=== PATIENT | female | born 1955 | race African-American/Black ===

== ENCOUNTER 2018-11-19 18:37 | Inpatient (IN) ==
[2018-11-19] MEDS ORDERED: G.I. COCKTAIL PO ONE (19:50)
[2018-11-19 20:46] LABS: BASO# 0.04 X1000 (0.0-0.2); BASO% 0.2 % (0.0-0.8); EOS# 0.08 X1000 (0.0-0.7); EOS% 0.4 % (0.0-10.0); HEMOGLOBIN 12.9 g/dL (12.0-16.0); IMM GRAN# 0.09 X1000 (0.0-0.04); IMM GRAN% 0.5 % (0.0-0.5); LYMPH% 16.1 % (20.5-51.1); MCH 30.1 PG (27-31); MCHC 33.9 g/dL (33-37); MCV 88.6 FL (81-99); MONO# 1.86 X1000 (0.11-0.59); MPV 11.4 FL (7.4-10.4); NEUT# 13.62 X1000 (1.4-6.5); NEUT% 72.8 % (42.2-75.2); PLT 238 X1000 (130-400); RBC 4.29 XMIL (4.2-5.4); RDW 15.3 % (11.5-14.5); WBC 18.69 X1000 (4.8-10.8)
[2018-11-19 21:12] LABS: ALBUMIN 4.1 g/dL (3.5-5.0); CALCIUM 9.3 mg/dL (8.8-10.2); CREATININE 2.1 mg/dL (0.5-0.9); POTASSIUM 5.2 mmol/L (3.5-5.1); TOTAL BILIRUBIN 0.44 mg/dL (0.20-1.00); TOTAL PROTEIN 8.4 g/dL (6.3-8.3)
[2018-11-20 01:20] LABS: URINE SOURCE CATH
[2018-11-20] MEDS ORDERED: ZOFRAN IV ONE (01:23)
[2018-11-20] MEDS ORDERED: DILAUDID IV ONE (01:23)
[2018-11-20 01:24] LABS: BILIRUBIN URINE NEGATIVE (NEGATIVE); BLOOD URINE NEGATIVE (NEGATIVE); COLOR YELLOW; GLUCOSE URINE NEGATIVE (NEGATIVE); KETONE URINE NEGATIVE (NEGATIVE); LEUKOCYTES URINE TRACE (NEGATIVE); NITRITE URINE NEGATIVE (NEGATIVE); PROTEIN URINE TRACE mg/dL (NEGATIVE); SP GRAVITY URINE 1.015; TURBIDITY URINE CLEAR (CLEAR); UROBILINOGEN URINE NORMAL (NORMAL)
[2018-11-20 01:33] LABS: UR EPITHELIAL CELLS <10 /HPF (<10); URINE BACTERIA NEGATIVE /HPF; URINE RBC <10 /HPF (<10); URINE WBC <10 /HPF (<10)
[2018-11-20 01:34] LABS: URINE CASTS NONE SEEN; URINE CRYSTALS NONE SEEN; URINE YEAST NONE SEEN
--- NOTE | 2018-11-20 01:44 | PROVIDER DOCUMENTATION ---
This chart was entered by Anahy Lopez Scribe, acting as scribe for Ant Antonio MD. HPI-Abdominal Pain/GI Problem - General Chief Complaint: Abdominal Pain Stated Complaint: ABD PAIN Time Seen by Provider: 11/19/18 19:43 Source: patient Allergies/Adverse Reactions: Patient Allergies Allergy/AdvReac Type Severity Reaction Status Date / Time acetaminophen [From Percocet] Allergy HIVES Verified 11/19/18 20:20 oxycodone [From Percocet] Allergy HIVES Verified 11/19/18 20:20 Home Medications: Home Medication List Medication Instructions Recorded Confirmed Last Taken Type Digoxin [Lanoxin] 250 microgm PO DAILY #30 tablet 08/14/15 11/20/18 Unknown Rx Lisinopril/Hydrochlorothiazide 1 each PO DAILY #30 tablet 08/14/15 11/20/18 Unknown Rx [Lisinopril-Hctz 20-25 mg Tab] Metformin [Glucophage] 500 mg PO BID CC #60 tablet 08/14/15 11/20/18 Unknown Rx Spironolactone [Aldactone] 25 mg PO DAILY #30 tablet 08/14/15 11/20/18 Unknown Rx Furosemide [Lasix] 40 mg PO DAILY 09/20/15 11/20/18 Unknown History Metoprolol Succinate E.r. [Toprol 100 mg PO DAILY 09/20/15 11/20/18 Unknown History Xl] Carvedilol [Coreg] 12.5 mg PO DAILY 08/12/18 11/20/18 Unknown History Cyclobenzaprine [Flexeril] 10 mg PO BID 08/12/18 11/20/18 Unknown History Esomeprazole Magnesium 40 mg PO DAILY 08/12/18 11/20/18 Unknown History Hydrocodone/Acetaminophen [[place] 1 tab PO Q4H PRN 08/12/18 11/20/18 Unknown History 7.5-325 Tablet] Potassium Chloride E.r. [Micro-K] 1 cap PO DAILY 08/12/18 11/20/18 Unknown History Sucralfate [Carafate] 1 gm PO AC + HS #120 tab 08/12/18 11/20/18 Unknown Rx Methimazole 10 mg PO DAILY 11/20/18 11/20/18 Unknown History Omeprazole [Prilosec] 40 mg PO DAILY 11/20/18 11/20/18 Unknown History Ondansetron HCl [Zofran] 4 mg PO PRN PRN 11/20/18 11/20/18 Unknown History - History of Present Illness-ABD Nature of Presenting Problems: pt is a 63 yr old female presenting with 2 week hx of abdominal pain and bloating, pt reports hx of gastric ulcers, taking antacids for same. pt denies any nausea, vomiting or diarrhea. Abdominal Pain Onset Location: reports: generalized abdomen Pain Radiation: reports: no radiation Quality of Pain: reports: aching, burning Severity in ED: reports: moderate Onset/Duration: reports: other (2 weeks) Timing: reports: still present Activities at Onset: reports: light activity Exposure to sick contacts?: No Modifying Factors: improves with: antacids (no improvement) Associated Symptoms: reports: heartburn. denies: constipation, diarrhea, nausea, vomiting Last BM: this morning Dark Stools Present?: reports: none noticed Rectal Bleeding: reports: none Rectal Pain: reports: none Emesis Description: reports: none Bruising or Bleeding Gums?: No Similar Symptoms Previously?: No Recently seen or treated by another doctor?: No Review of Systems - Adult - REVIEW OF SYSTEMS - ADULT Constitutional: denies: fever, fatique Eyes: reports: no symptoms reported Ears, Nose, Mouth & Throat: reports: no symptoms reported Cardiovascular: denies: chest pain, palpitations, syncope Respiratory: reports: no symptoms reported Gastrointestinal: reports: abdominal pain, frequent heartburn. denies: constipation, diarrhea, nausea, vomiting Genitourinary: denies: dysuria, frequency, flank pain Musculoskeletal: denies: back pain, muscle aches, neck pain Integumentary: reports: no symptoms reported Neurological: denies: dizziness/vertigo, headache/migraines Psychiatric: reports: no symptoms reported Endocrine: reports: no symptoms reported Hematologic/Lymphatic: reports: no symptoms reported Allergic/Immunologic: reports: no symptoms reported All Other Systems: Reviewed and Negative Past History - Adult - PAST MEDICAL HISTORY-ADULT Review of Records: reports: Old Records Reviewed, Nursing Assessment Review, Medications Reviewed, Social history reviewed & non-contributory. Major Childhood Illnesses: reports: denies history Cardiovascular: reports: HTN, hyperlipidemia Respiratory: reports: denies history Gastrointestinal: reports: denies history Obstetrical/Gynecological: reports: denies history Genitourinary: reports: denies history Musculoskeletal: reports: denies history Neurological: reports: denies history Endocrine/Immune: reports: Diabetes Other Conditions: reports: denies history - PRIOR SURGERIES/PROCEDURES Surgical/Procedure History: reports: cholecystectomy - IMMUNIZATION STATUS Childhood Immunizations: See Nurse Assessment Flu Vaccine: See Nurse Assessment - FAMILY HISTORY Family History: reviewed, not pertinent - SOCIAL HISTORY Smoking: quit greater than 1 year Substance Use: denies Living Situation: family Physical Exam-General - PHYSICAL EXAM-ADULT Initial Vital Signs Reviewed: Yes - CONSTITUTIONAL General Appearance: alert, moderate distress, obese - EYES Eyes: PERRL/EOMI - HEAD, EARS, NOSE, MOUTH & THROAT HENMT: normocephalic/atraumatic, moist mucous membranes - NECK Neck: non-tender, full range of motion, supple, normal inspection - RESPIRATORY Respiratory: chest non-tender, lungs clear, normal breath sounds, no pleuratic chest pain, no respiratory distress, no accessory muscle use - CARDIOVASCULAR Cardiovascular: normal peripheral pulses, regular rate, rhythm, no edema - GASTROINTESTINAL (ABDOMEN) Abdominal Exam: normal bowel sounds, soft, tenderness (mild diffuse tenderness) - LYMPHATIC Lymphatic: no adenopathy - MUSCULOSKELETAL Back Exam: normal inspection, no CVA tenderness, no vertebral tenderness Extremity: normal range of motion, non-tender, normal gait, normal inspection - SKIN Integumentary: normal color, normal turgor, warm/dry - NEUROLOGIC Neurologic: grossly normal, no motor/sensory deficits - PSYCHIATRIC Psych/Mental Status: normal mood/affect Progress - PLAN OF CARE/RESULTS Progress/Plan/Lab Results: Vital Signs - 8 hr 11/19/18 18:59 Temperature 97.7 F Pulse Rate 88 Respiratory Rate 17 Blood Pressure 93/52 O2 Sat by Pulse Oximetry 96 Laboratory Results - last 24 hr 11/19/18 11/19/18 20:30 20:30 WBC 18.69 H RBC 4.29 Hgb 12.9 Hct 38.0 MCV 88.6 MCH 30.1 MCHC 33.9 RDW Std Deviation 15.3 H Plt Count 238 MPV 11.4 H Immature Gran % (Auto) 0.5 Neut % (Auto) 72.8 Lymph % (Auto) 16.1 L Williamson % (Auto) 10.0 H Eos % (Auto) 0.4 Baso % (Auto) 0.2 Immature Gran # (Auto) 0.09 H Neut # (Auto) 13.62 H Lymph # (Auto) 3.00 Williamson # (Auto) 1.86 H Eos # (Auto) 0.08 Baso # (Auto) 0.04 Sodium 134 L Potassium 5.2 H Chloride 98 Carbon Dioxide 20 L Anion Gap 16 BUN 39 H Creatinine 2.1 H Estimated GFR/1.73 m2 29 BUN/Creatinine Ratio 19 Glucose 142 H Calculated Osmolality 280 Calcium 9.3 Total Bilirubin 0.44 AST 14 ALT 8 L Alkaline Phosphatase 98 Total Protein 8.4 H Albumin 4.1 Globulin 4.3 Albumin/Globulin Ratio 1.0 Amylase 264 H Lipase 522 H Orders Category Date Time Status NPO Diet 11/19/18 19:[address] ABDOMEN/PELVIS W/O CONTRAST [CT] Stat Exams 11/19/18 21:36 Taken AMYLASE [CHEM] Stat Lab 11/19/18 20:30 Completed CBC WITH ELECTRONIC DIFF [HEME] Stat Lab 11/19/18 20:30 Completed COMPREHENSIVE METABOLIC PANEL [CHEM] Stat Lab 11/19/18 20:30 Completed LIPASE [CHEM] Stat Lab 11/19/18 20:30 Completed URINALYSIS W/POSS RFLX CULT [URINALYSIS] Stat Lab 11/19/18 19:13 Uncollected Lido/Kent Alk/Al&mg Hydrox [G.i. Cocktail] Med 11/19/18 19:50 Discontinued 30 ml PO NOW ONE Result Diagrams: 11/19/18 20:30 11/19/18 20:30 - CT/MRI 1 CT Study: Abdomen, Pelvis Impression: Abnormal (findings worrisome for a mass involving pancreatic head. Other considerations are less likely. Recommend consideration for CT abdomen with iv contrast for furth eval. small sliding hiatal hernia) Comparison with other Films: no prior study - CONSULTS/PCP/HOSPITALIST Notification #1 *Consult/PCP/Hospitalist*: Dr. Campbell Time Discussed: 12:45 Consult Disposition: Admit Departure - Departure Date of Disposition Decision: 11/20/18 Time of Disposition Decision: 12:55 DIAGNOSIS: Pancreatic mass, Hyperkalemia Abdominal pain Qualifiers: Abdominal location: unspecified location Qualified Code(s): R10.9 - Unspecified abdominal pain Leukocytosis Qualifiers: Leukocytosis type: unspecified Qualified Code(s): D72.829 - Elevated white blood cell count, unspecified Renal failure Qualifiers: Renal failure chronicity: unspecified chronicity Qualified Code(s): N19 - Unspecified kidney failure Disposition: ADMITTED INPATIENT 09 Certified Medical Emergency: Emergent Condition: Serious Referrals and Follow-Ups: Jonathan Mansfield MD [Primary Care Provider] - - Critical Care Note This patient required my direct & personal management of CC.: No Attestation - Physician/ JOSSUE Attestation The physician spent face to face time with patient:: Yes Advanced Practice Provider documentation review:: Supervising physician onsite and consulted in the evaluation and care of this patient. The physician did have a face to face encounter with the patient. This chart was documented by the indicated scribe, (Anahy Lopez Scribe) and accurately reflects the services I performed and decisions made by me, Ant Anotnio MD, as attested by the provider's signature.
[2018-11-20] MEDS ORDERED: NS 1,000 ML IV SCH (04:55)
--- NOTE | 2018-11-20 05:00 | HISTORY AND PHYSICAL ---
ADDENDUM: PRIMARY CARE PHYSICIAN: Jonathan Mansfield MD REASON FOR ADMISSION: Abdominal pain for the last couple of days. HISTORY OF PRESENT ILLNESS: Ms. Nadya Brown is well known to our service. She has a history of CHF, prior cardiac arrest, and now has a defibrillator implanted. She also has a history of hyperthyroidism, hypertension, and type 2 diabetes. Comes in today complaining of epigastric pain. She was diagnosed as having peptic ulcer disease less than a month ago by Dr. Pack; was put on omeprazole without any relief and Carafate was also added. The patient says she has had this pain for the last several weeks with no relief and this got worse yesterday. She came at the behest of her daughter. No fever or chills. She has occasional loose stools that are nonbloody. No weight loss. DATA: Her lab work is just notable for a white count of 18,000 with no left shift. Her BUN is 39, creatinine is 2.1. This creatinine represents an increase from 1.2 late last year. Lipase is elevated at 522. Amylase is 264. CT scan did show possible mass effect at the head of the pancreas. This was a noncontrast study so it limits the possible detection for malignancy. PLAN: Initially our plan was for MRCP and MRI, but because of the patient's defibrillator, we have opted for a CT scan of the abdomen. However, the patient has possible acute kidney injury and will hydrate the patient for the next 72 hours cautiously, especially in light of her underlying CHF, and if her creatinine improves, then we can proceed to do a CT scan of the abdomen with contrast to get a better image of what is going on in the pancreas. In the meantime, she is pretty symptomatic. I will cover her with antibiotics, i.e. Zosyn, just in case the patient should have an abscess or a phlegmon, or evidence of necrosis. Consult Dr. Pack who is familiar with this patient to see the patient. Keep the patient n.p.o. Treat the patient with pain medications and antiemetics in the interim and IV PPIs. cc: Conner Campbell MD
[2018-11-20] MEDS ORDERED: TYLENOL PO PRN (05:27)
[2018-11-20] MEDS: ZOSYN 2.25 GM in NS 50 ML IV SCH ×5 (05:30→22:47)
[2018-11-20] MEDS: NS 1,000 ML IV SCH ×3 (05:56→21:17)
[2018-11-20] MEDS: PROTONIX IV SCH (05:56)
[2018-11-20] MEDS ORDERED: DILAUDID IV PRN ×2 (06:00→08:52)
[2018-11-20] MEDS ORDERED: ZOFRAN IV PRN (06:00)
--- NOTE | 2018-11-20 07:06 | Diag Imaging Result Doc PS360 ---
EXAM: CT ABDOMEN/PELVIS W/O CONTRAST 11/19/2018 HISTORY: abdominal pain TECHNIQUE: This exam was performed using automated exposure control, adjustment of mA or kV according to patient size, and/or use of iterative reconstruction technique. COMMENT: The current examination is compared with the previous study of 01/02/2013. The appearance of the visualized portion of the chest has not changed significantly. There is a granuloma in the inferior lingula and a fibrotic scar in the posterior costophrenic sulcus of the right lower lobe. There are pacemaker leads which were not previously present. There is a hiatal hernia. The adrenal glands are not enlarged. There has been cholecystectomy. There is at least one granuloma in the spleen. There is no evidence of nephrolithiasis on the left. There are several stones on the right the largest of which is present in the upper pole measuring over 8 mm in greatest dimension. This was also present at the time the previous study. There is no evidence of hydronephrosis. There is inflammatory change/mass involving the head of the pancreas. This was not the case at the time the previous study. There are no visible stones in the bile ducts. A segment of the superior mesenteric vein is completely obscured by the process. As this study was performed without contrast, the possibility of necrosis cannot be evaluated. The body and tail of the pancreas are normal in appearance. The appendix is normal in appearance. There is no evidence of bowel obstruction. There are diverticula present in the sigmoid colon without evidence of acute diverticulitis. There is a pedunculated leiomyoma with calcification arising posteriorly from the uterus. There is no evidence of free fluid. There are degenerative disc and facet changes in the lumbar spine. No definite hepatic abnormalities are present. IMPRESSION: Inflammation versus a mass in the head of the pancreas. The possibility of neoplastic disease cannot be excluded and follow-up contrast examination would be helpful in this regard. Electronically signed by Jin Balderas 11/20/2018 7:04 AM
[2018-11-20 07:25] LABS: HEMATOCRIT 32.7 % (37.0-47.0); MCH 29.9 PG (27-31); MCHC 33.6 g/dL (33-37); MCV 88.9 FL (81-99); PLT 218 X1000 (130-400); RBC 3.68 XMIL (4.2-5.4)
[2018-11-20 07:26] LABS: BASO# 0.03 X1000 (0.0-0.2); BASO% 0.2 % (0.0-0.8); EOS# 0.03 X1000 (0.0-0.7); EOS% 0.2 % (0.0-10.0); IMM GRAN# 0.07 X1000 (0.0-0.04); IMM GRAN% 0.4 % (0.0-0.5); LYMPH# 2.99 X1000 (1.2-3.4); LYMPH% 16.3 % (20.5-51.1); MONO# 1.94 X1000 (0.11-0.59); MONO% 10.6 % (1.7-9.3); MPV 10.3 FL (7.4-10.4); NEUT# 13.24 X1000 (1.4-6.5); NEUT% 72.3 % (42.2-75.2)
[2018-11-20 07:47] LABS: CALCIUM 9.3 mg/dL (8.8-10.2); CREATININE 2.5 mg/dL (0.5-0.9); MAGNESIUM 1.3 mg/dL (1.5-2.7); POTASSIUM 5.3 mmol/L (3.5-5.1)
--- NOTE | 2018-11-20 08:18 | EKG Report ---
Test Performed on : 11/20/2018 03:16:09 AM Test Reason : chf Blood Pressure : / mmHG Vent. Rate : 082 BPM Atrial Rate : 082 BPM P-R Int : 116 ms QRS Dur : 126 ms QT Int : 378 ms P-R-T Axes : 021 232 029 degrees QTc Int : 441 ms Sinus rhythm. with frequent premature ventricular complexes. Right superior axis deviation Nonspecific intraventricular block Possible Right ventricular hypertrophy Abnormal ECG When compared with ECG of 26-MAR-2018 12:12, Previous ECG has undetermined rhythm, needs review Borderline criteria for Lateral infarct are no longer present Nonspecific T wave abnormality no longer evident in Lateral leads Unconfirmed Result
--- NOTE | 2018-11-20 09:08 | HISTORY AND PHYSICAL ---
PRIMARY CARE PROVIDER: Jonathan Mansfield MD. BINDERY HELPER: Sacha Camara MD. DISTRICT FIRE CHIEF: Scott Pack MD. CHIEF COMPLAINT: Abdominal pain. HISTORY OF PRESENT ILLNESS: Ms. Brown is a 63-year-old -[place] female, who presented to the ER last night on 11/19/2018 at 18:37 with complaints of periumbilical and left upper quadrant pain. The patient states that since June that she has had intermittent abdominal pain, which she described as achy in nature which was also associated with some bloating and nausea. The patient states that for the last 2 weeks this pain has been constant. She does report nausea but denies any vomiting. She does report that she does occasionally have problems with constipation and had drank prune juice over the last day or 2 to have a bowel movement. She states that either yesterday or the day before that she did have a bowel movement, though it was not a good bowel movement, there is a large amount. From what I understand, she has recently had a E[facility] [place] by Dr. Pack and was diagnosed with gastric ulcers. She has since been placed on Carafate and Protonix. She also has reported some chills but denied any fever or body aches. She denies any headache but states that she has been having occasional dizziness, though upon further investigation the patient reports that this is when she goes from a sitting to a standing position and takes a few steps she gets dizzy sometimes. May be orthostatic in nature. She denies any chest pain, shortness of breath, or cough. She denies any dysuria or urinary frequency. She denies any pain, numbness, tingling, or swelling in extremities. Upon evaluation in the ER, the patient was noted to have some leukocytosis with a white blood cell count of 18,690. Potassium was slightly elevated at 5.2, sodium was slightly low at 134. Though most notably her BUN and creatinine were elevated. Her creatinine at this time is 2.1 and previously it was 1.2 in June of 2018. Also, her amylase and lipase were elevated with amylase being 264 and her lipase being 522. Given these findings, they did perform a CT abdomen and pelvis without contrast, which showed findings which were worrisome for a mass involving the pancreatic head. Other considerations are less likely. They recommended consideration for CT abdomen with IV contrast for further evaluation. There was also noted to be a small sliding hiatal hernia. For evaluation of the patient's leukocytosis, we have obtained a urine, which was only positive for trace leukocytes, and the patient is reporting any symptoms. We have ordered a chest x-ray as well, though we are still waiting for this to be obtained at this time. Though given her leukocytosis and reports of chills, we have decided to go ahead and cover with antibiotic of Zosyn. We have ordered blood culture as well. The patient was placed inpatient admission for further treatment and evaluation. REVIEW OF SYSTEMS: A 14-point review of systems was conducted with the patient and all were negative except for pertinent positives mentioned in the HPI. PAST MEDICAL HISTORY: 1. Diabetes mellitus type 2. 2. Hypertension. 3. Hyperlipidemia. 4. Hyperthyroidism. 5. History of ischemic cardiomyopathy with severely reduced systolic function. Her most recent echocardiogram in March of 2018 did show an ejection fraction of 35% to 40%. 6. History of cardiac arrest in September of 2015. The patient has since had a defibrillator placed. 7. Recent diagnosis of gastric ulcers in June of 2018. PAST SURGICAL HISTORY: 1. Cholecystectomy. 2. Defibrillator placement. SOCIAL HISTORY: The patient is a former smoker. She did smoke greater than a pack a day for 30- 40 years. There is known alcohol or illicit drug use. FAMILY HISTORY: Positive for her mother having a history of kidney failure. She states her father did not have any known medical problems. ALLERGIES: The patient has no known drug allergies. HOME MEDICATIONS: 1. Coreg 12.5 mg p.o. daily. 2. Flexeril 10 mg p.o. b.i.d. 3. Digoxin 250 mcg p.o. daily. 4. Esomeprazole magnesium 40 mg p.o. daily. 5. Lasix 40 mg p.o. daily. 6. [place] 7.5 mg p.o. q.4 hours p.r.n. 7. Lisinopril hydrochlorothiazide combination medication 20/25 mg tablet 1 p.o. daily. 8. Metformin 500 mg p.o. b.i.d. 9. Methimazole 10 mg p.o. daily. 10.Toprol XL 100 mg p.o. daily. 11.Prilosec 40 mg p.o. daily. 12.Zofran 4 mg p.o. p.r.n. as directed for nausea. 13.Potassium chloride extended release 8 mEq p.o. daily. 14.Aldactone 25 mg p.o. daily. 15.Carafate 1 g p.o. a.c. and at bedtime. DIAGNOSTIC DATA/LABORATORY RESULTS: White blood cell count is 18,690, hemoglobin 12.9, hematocrit 38, platelet count is 238. Sodium 134, potassium 5.2, chloride 98, serum bicarbonate is 20, BUN 39, creatinine 2.1, with GFR of 29, glucose 142, calcium 9.3. Liver function tests are within normal limits. Amylase 264, lipase 522. Urinalysis was obtained via catheter and was positive for trace protein and leukocytes, it was negative for glucose, ketones, blood, nitrites, bilirubin, white blood cells, or bacteria. We are awaiting EKG to be performed at this time. We are awaiting a portable chest x-ray to be performed at this time. CT abdomen and pelvis did have findings worrisome for a mass involving the pancreatic head. Other considerations are less likely. Radiologist recommended consideration for CT abdomen with IV contrast for further evaluation. There was also noted a small sliding hiatal hernia. Please CT report for other nonacute findings. PHYSICAL EXAMINATION: VITAL SIGNS: Temperature 97.8, heart rate 84, respirations 16, blood pressure is 102/54 with a MAP of 74, oxygen saturation is 97% on room air. GENERAL: Ms. Brown is a very pleasant 63-year-old -[place] female. She was resting in the ER stretchers. She was in no acute distress. She was awake, alert, and able to answer questions appropriately. HEENT: Head is atraumatic, normocephalic. Pupils are equal, round, reactive to light, were 3 mm bilaterally and brisk. Oral mucosa was slightly dry. Oropharynx was clear other than the patient did have oral candidiasis noted to her tongue and bilateral buccal mucosa. NECK: Supple, trachea midline. No JVD noted upon examination. CARDIOVASCULAR: The patient has S1 and S2 present. No murmurs, gallops, or rubs appreciated, with a regular rate and rhythm. PULMONARY: The patient has symmetrical chest expansion bilaterally. Lung sounds were clear to auscultation in bilateral full eng. ABDOMEN: Soft, does not appear to be distended, though the patient does have protuberant abdomen noted. Bowel sounds were present in all 4 quadrants. The patient does report tenderness in the left upper quadrant area. EXTREMITIES: No cyanosis or edema noted. Pulse, motor, and sensory were intact in all extremities. Radial pulses and pedal pulses are 2+ bilaterally. INTEGUMENTARY: The patient's skin is pink, warm, and dry. NEUROLOGICAL: The patient is alert and oriented to person, place, and time. She is able to move all extremities. There does not appear to be a focal neurological deficits. ASSESSMENT AND PLAN: 1. Possible pancreatic mass. For further evaluation of this, we have placed a consult with Dr. Pack with Gastroenterology. Until she is evaluated by Gastroenterology, we will keep her n.p.o. at this time. We are going to hydrate her gently over the next 48-72 hours though we will do this very cautiously. The patient does have a history of congestive heart failure. We will try to improve her renal function a bit so that her creatinine and GFR are within acceptable range for her to receive a contrasted CT of the abdomen and pelvis. We will continue to follow closely. 2. Leukocytosis. This may be related to her abdominal pain, given her CT findings as well we have placed her with antibiotic coverage of Zosyn. We have ordered blood cultures. We have placed orders for a chest x-ray to rule out any further infectious process. She did have some leukocytosis noted in her urine but the patient is asymptomatic. We have ordered a urine culture and awaiting those results at this time. 3. Acute kidney injury. This may be secondary to some volume depletion given that the patient has had abdominal pain and nausea. We are going to provide some gentle hydration, though as mentioned earlier we will do this cautiously. The patient does have a history of congestive heart failure. We will avoid nephrotoxic medications and renally dosed medicines as necessary and hopefully her creatinine will improve enough for us to perform CT abdomen and pelvis with contrast as mentioned above. 4. History of congestive heart failure. She does not appear to be in any exacerbation or fluid overload at this time. We will continue to follow. Though we have held quite a few of her blood pressure and heart medications given that she is borderline hypotensive. We will likely continue her digoxin though we are awaiting a digoxin level to come back given her acute kidney injury just to monitor for any possible toxicity. If this level is within normal range, we can continue her dose but this may need to be reduced based off her renal function possibly from digoxin 250 mcg p.o. daily to digoxin 125 mcg daily. 5. Diabetes mellitus type 2. We will hold her metformin given her renal function. We have placed her on a Lispro sliding scale and patient specific not to be treated until her fingerstick blood sugars are greater than 200 given that she is n.p.o. at this time. 6. History of hypertension. As previously mentioned, we are holding quite a few of her blood pressure medications given that she is borderline hypotensive at this time. 7. History of hyperthyroidism. 8. Deep venous thrombosis prophylaxis will be provided with sequential compression devices. The patient has been placed on the Medical floor with telemetry. She will have vital signs q.4 hours with strict intake and output. Will repeat a CBC, BMP, magnesium. This morning, we are still awaiting digoxin and TSH levels. Other orders and recommendations pending hospital course, diagnostics, and physician evaluations. Dictated by SRAVANTHI Allan for Conner Campbell MD cc: Conner Campbell MD
--- NOTE | 2018-11-20 10:20 | Diag Imaging Result Doc PS360 ---
CHEST-PORTABLE - 11/20/2018 INDICATION: Leukocytosis, chills COMPARISON: 08/12/2018 FINDINGS: Stable left-sided biventricular pacemaker. Heart size and pulmonary vascularity is normal. No infiltrates or edema. No pneumothorax or pleural effusion. Stable small granuloma in the right upper lobe. IMPRESSION: No acute disease or change from prior. Electronically signed by Austin Mantilla 11/20/2018 10:18 AM
[2018-11-20] MEDS: HUMALOG SUBQ SCH ×5 (11:47→21:19)
[2018-11-20] MEDS: MYCOSTATIN SUSP PO SCH ×4 (11:50→21:18)
[2018-11-20] MEDS: PHENERGAN IV PRN ×2 (11:52→22:21)
[2018-11-20] MEDS: SODIUM CHLORIDE 0.9% INJ SCH (11:52)
[2018-11-20] MEDS: DILAUDID IV PRN ×2 (12:07→15:22)
--- NOTE | 2018-11-20 19:14 | GASTROENTEROLOGY CONSULTATION ---
DATE: 11/20/2018 REASON FOR CONSULTATION: pancreatitis HISTORY OF PRESENT ILLNESS: Ms. Nadya Brown is a 63 year old woman with PMH of HTN, HLD, ICM with EF of 35-40% s/p ICD, CAD, NIDDM2 who presented yesterday with progressive epigastric abdominal pain since 06/2018. She describes the pain as severe, achy in nature, and non-radiating. She reports some associated nausea without vomiting, decreased appetite, and 67-lb weight loss. She was seen in our office in 09/2018 and underwent diagnostic EGD and colonoscopy that revealed small hiatal hernia, gastritis, superficial gastric ulcer, diverticulosis, colonic polyp, and hemorrhoids. She does not drink alcohol and denies starting any new medications recently. ROS: as per HPI, otherwise 12-point ROS negative PAST MEDICAL HISTORY: 1. Diabetes mellitus type 2. 2. Hypertension. 3. Hyperlipidemia. 4. Hyperthyroidism. 5. History of ischemic cardiomyopathy with severely reduced systolic function. Her most recent echocardiogram in March of 2018 did show an ejection fraction of 35% to 40%. 6. History of cardiac arrest in September of 2015. The patient has since had a defibrillator placed. 7. Recent diagnosis of superficial gastric ulcer 8. Hiatal hernia 9. Diverticulosis 10. Hemorrhoids PAST SURGICAL HISTORY: 1. Cholecystectomy. 2. Defibrillator placement. SOCIAL HISTORY: The patient is a former smoker. She did smoke greater than a pack a day for 30- 40 years. There is known alcohol or illicit drug use. FAMILY HISTORY: Positive for her mother having a history of kidney failure. She states her father did not have any known medical problems. No FHx of GI malignancies including pancreatic ALLERGIES: The patient has no known drug allergies. HOME MEDICATIONS: 1. Coreg 12.5 mg p.o. daily. 2. Flexeril 10 mg p.o. b.i.d. 3. Digoxin 250 mcg p.o. daily. 4. Esomeprazole magnesium 40 mg p.o. daily. 5. Lasix 40 mg p.o. daily. 6. [place] 7.5 mg p.o. q.4 hours p.r.n. 7. Lisinopril hydrochlorothiazide combination medication 20/25 mg tablet 1 p.o. daily. 8. Metformin 500 mg p.o. b.i.d. 9. Methimazole 10 mg p.o. daily. 10.Toprol XL 100 mg p.o. daily. 11.Prilosec 40 mg p.o. daily. 12.Zofran 4 mg p.o. p.r.n. as directed for nausea. 13.Potassium chloride extended release 8 mEq p.o. daily. 14.Aldactone 25 mg p.o. daily. 15.Carafate 1 g p.o. a.c. and at bedtime. PHYSICAL EXAM T 98.0 HR 91 BP 91/51 RR 20 O2 Sat 98% RA GEN: awake, alert, mild distress from abdominal pain HEENT: anicteric, MMM, EOMI NECK: supple, no jvd PULM: CTAB, no wheezing CV: RRR, no murmurs ABD: obese, soft, ND, moderate TTP in upper abdomen, no ascites, voluntary guarding EXT: no cce NEURO: nonfocal DIAGNOSTIC DATA/LABORATORY RESULTS: White blood cell count is 18,690, hemoglobin 12.9, hematocrit 38, platelet count is 238. Sodium 134, potassium 5.2, chloride 98, serum bicarbonate is 20, BUN 39, creatinine 2.1, with GFR of 29, glucose 142, calcium 9.3. Liver function tests are within normal limits. lipase 522. UA essentially unremarkable CTAP without contrast 11/19 IMPRESSION: Inflammation versus a mass in the head of the pancreas. The possibility of neoplastic disease cannot be excluded and follow-up contrast examination would be helpful in this regard. ASSESSMENT AND PLAN: Ms. Nadya Brown is a 63 year old woman with PMH of HTN, HLD, ICM with EF of 35-40% s/p ICD, CAD, NIDDM2 who presents with acute pancreatitis found to have inflammation vs mass in the pancreatic head on non-contrast CT A/P. Labs also notable for leukocytosis and elevated Cr suggestive of RADHA on CKD. The CT is highly concerning for underlying malignancy given reported history of abnormal weight loss. LFTs are normal and patient denies diarrhea to suggest biliary obstruction or pancreatic insufficiency, respectively. She is currently NPO and receiving gentle fluids given history of CHF. # Acute pancreatitis: unclear etiology; concerning for underlying malignancy - will start patient on clears - continue analgesics as needed - no need to trend lipase - increased IVFs to 150 mL/hr - serial abdominal exams - trending CMP, CBC daily - will check triglycerides # Inflammation vs pancreatic head mass: given RADHA and low GFR; unable to obtain contrasted study, unable to do MRI due to ICD; plus it would difficult to discern malignancy in setting of acute pancreatitis w/ the inflammation - recommend outpatient EUS with FNA in 1 month once acute pancreatitis resolves # Leukocytosis: likely reactive; BCx2 pending; on empiric zosyn; if BC negative after 48 hours, stop abx # RADHA on probable CKD: IVFs; hold nephrotoxic agents, renally dose meds, trend Cr # ICM: hold home BP meds # DM2: SSI # PUD: continue PPI IV once daily Will follow with you. Please call with questions or concerns MTDD
[2018-11-21] MEDS: DILAUDID IV PRN ×4 (02:19→17:15)
[2018-11-21] MEDS: NS 1,000 ML IV SCH ×4 (02:25→22:37)
[2018-11-21] MEDS: PHENERGAN IV PRN ×4 (05:34→20:02)
[2018-11-21] MEDS: ZOSYN 2.25 GM in NS 50 ML IV SCH ×4 (05:35→22:37)
[2018-11-21] MEDS: PROTONIX IV SCH (05:35)
[2018-11-21] MEDS: SODIUM CHLORIDE 0.9% INJ SCH ×2 (05:35→11:53)
[2018-11-21] MEDS: HUMALOG SUBQ SCH ×3 (06:00→17:24)
[2018-11-21 07:00] LABS: BASO# 0.04 X1000 (0.0-0.2); BASO% 0.2 % (0.0-0.8); EOS# 0.06 X1000 (0.0-0.7); EOS% 0.3 % (0.0-10.0); HEMATOCRIT 33.4 % (37.0-47.0); HEMOGLOBIN 11.3 g/dL (12.0-16.0); IMM GRAN# 0.06 X1000 (0.0-0.04); IMM GRAN% 0.3 % (0.0-0.5); LYMPH# 3.16 X1000 (1.2-3.4); LYMPH% 18.2 % (20.5-51.1); MCH 30.3 PG (27-31); MCHC 33.8 g/dL (33-37); MCV 89.5 FL (81-99); MONO# 1.63 X1000 (0.11-0.59); MONO% 9.4 % (1.7-9.3); MPV 10.7 FL (7.4-10.4); NEUT# 12.38 X1000 (1.4-6.5); NEUT% 71.6 % (42.2-75.2); PLT 224 X1000 (130-400); RBC 3.73 XMIL (4.2-5.4); RDW 15.2 % (11.5-14.5); WBC 17.33 X1000 (4.8-10.8)
[2018-11-21 07:42] LABS: CALCIUM 9.3 mg/dL (8.8-10.2); CREATININE 2.2 mg/dL (0.5-0.9); POTASSIUM 5.2 mmol/L (3.5-5.1)
[2018-11-21] MEDS: MYCOSTATIN SUSP PO SCH ×4 (09:35→20:02)
--- NOTE | 2018-11-21 11:36 | GASTROENTEROLOGY CONSULTATION ---
DATE: 11/21/2018 ATTENDING PHYSICIAN: Dr. Carrington. PRIMARY CARE DOCTOR: Dr Jonathan Mansfield SUBJECTIVE: The patient is resting in bed. Now she is complaining of abdominal pain. She denies any fevers, rigors, or chills. She denies any nausea, decreased p.o. intake. She denies any vomiting. PHYSICAL EXAMINATION: Vital Signs: Temperature 98.3, pulse rate of 113, respiratory rate of 22, blood pressure 133/104, saturating 100% on room air. Body weight of 212 pounds and 12.8 ounces. BMI of 34 kg/m2. General Appearance: Obese, lying in bed. In mild distress with abdominal pain. HEENT: Mild pallor. No icterus. Neck: Supple. Abdomen: Discomfort in the epigastrium. No rebound. No guarding. Obese. Extremities: No cyanosis, clubbing. Neurologic: Alert, awake, oriented x3. LABS: Hemoglobin and hematocrit are 11.3 and 33.4, white count of 17.3, platelet count of 224,000, MCV of 89.5. Sodium 139, potassium 5.2, chloride 101, bicarb of 19, anion gap 17, BUN of 44, creatinine 2.2, glucose of 125, calcium is 9.3. Blood culture x2 was drawn on 11/20/2018 which is currently pending. Urine culture showing no growth. IMPRESSION AND PLAN: 1. Pancreatitis. She will continue on clears and intravenous fluids. Continue on serial abdominal exams and intravenous pain control. We will follow up daily. 2. Question of pancreatic mass. We will check a CA 19-9. She will benefit from endoscopic ultrasound as an outpatient in 1 month, once pancreatitis resolves. 3. Leukocytosis, likely reactive. Follow up on the panculture. 4. Acute kidney injury on probable chronic kidney disease. Continue to watch her kidney function. 5. Type 2 diabetes, on sliding scale insulin. 6. Gastrointestinal prophylaxis with proton pump inhibitors. 7. Anemia. Continue to watch for now. 8. We will follow along. The above plan was discussed with the patient. All questions were answered. Please call us for further questions. cc: MD Daniel Cobian MD MTDD
[2018-11-21] MEDS: VICOPROFEN 200/7.5 MG PO SCH ×2 (13:01→19:33)
--- NOTE | 2018-11-21 13:06 | PROGRESS NOTE ---
DATE: 11/21/2018 SUBJECTIVE: Patient reports still complaining of abdominal pain. Mild nausea. She is not vomiting. OBJECTIVE: Vital Signs: Temperature 98.3 degrees, heart rate 113, respiratory rate 22, blood pressure 133/104, O2 saturation 100% on room air. General Examination: This is a chronically ill-appearing, 63-year-old female, lying in bed in no acute distress. HEENT: Head is normocephalic, atraumatic. Neck: No JVD noted. No carotid bruits. No lymphadenopathy. Cardiovascular exam: S1, S2 heard. No murmurs, gallops, or rubs. Regular rate and rhythm. Respiratory exam: Clear bilaterally to auscultation. No work of breathing or using accessory muscles. Abdomen: Soft. Mildly tender to palpation in the epigastric area and left upper quadrant as well. No signs of peritoneal irritation. Extremities: No clubbing, cyanosis, or edema. Peripheral pulses present in both legs. Neurological exam: Patient is alert and oriented x3. Moves 4 extremities. LABORATORY DATA: Reviewed. It is remarkable for elevation of white cell count 17.33 with potassium 5.2, creatinine 2.2. ASSESSMENT AND PLAN: 1. Pancreatitis versus pancreatic malignancy. Clinically, this patient is still hurting. The patient is on clear liquid diet and intravenous fluids. At this point, I think I am going to add hydrocodone to his current treatment on a scheduled basis, and will continue with Dilaudid as needed. Gastroenterology has evaluated this patient and plan for now is to continue with conservative management. They think that we need to wait until this inflammation resolves and then, in a month, probably she will need to have an endoscopic ultrasound to get a biopsy. In the meantime, CA 19-9 has been ordered. We will follow that result. 2. Leukocytosis, most likely reactive. She is not on any antibiotics. There was no source of infection. We have ordered blood cultures and urine culture. So far, urine culture is normal, blood culture is still pending. At this point, we will continue to monitor. No fever reported. 3. Chronic kidney disease. Her creatinine is 2.2 today and 1 year ago it was checked and was 1.2, the last 1 that we have. I think this most likely is acute on chronic kidney disease. We will continue monitoring basic metabolic panel daily. 4. History of congestive heart failure. At this point, she is not on any exacerbation. We will continue to monitor. 5. Diabetes mellitus type 2. We have held metformin for this patient. We will continue with sliding scale insulin, Accu-Chek before meals and also at bedtime. 6. History of hypertension. At this point, because patient was hypotensive, we decided to hold all blood pressure medications. Now, her blood pressure ranged between 119 and 133, so I think we will continue to hold those. 7. Anemia of chronic disease. We will continue to monitor complete blood count. 8. Disposition: We will continue to monitor this patient closely. cc: Daniel Carmoan MD
[2018-11-22 01:04] LABS: URINE SOURCE CATH
[2018-11-22] MEDS: PHENERGAN IV PRN ×3 (01:09→11:17)
[2018-11-22 01:34] LABS: BILIRUBIN URINE NEGATIVE (NEGATIVE); BLOOD URINE NEGATIVE (NEGATIVE); COLOR YELLOW; GLUCOSE URINE NEGATIVE (NEGATIVE); KETONE URINE NEGATIVE (NEGATIVE); LEUKOCYTES URINE NEGATIVE (NEGATIVE); NITRITE URINE NEGATIVE (NEGATIVE); PH URINE 5.5; PROTEIN URINE NEGATIVE (NEGATIVE); SP GRAVITY URINE 1.008; TURBIDITY URINE CLEAR (CLEAR); UROBILINOGEN URINE NORMAL (NORMAL)
[2018-11-22 01:38] LABS: UR EPITHELIAL CELLS <10 /HPF (<10); URINE BACTERIA NEGATIVE /HPF; URINE RBC <10 /HPF (<10); URINE WBC <10 /HPF (<10)
[2018-11-22] MEDS: HUMALOG SUBQ SCH ×5 (03:24→20:40)
[2018-11-22] MEDS: VICOPROFEN 200/7.5 MG PO SCH ×4 (03:25→20:44)
[2018-11-22] MEDS: ZOSYN 2.25 GM in NS 50 ML IV SCH ×3 (04:43→16:37)
[2018-11-22] MEDS: NS 1,000 ML IV SCH ×4 (04:43→20:40)
[2018-11-22] MEDS ORDERED: G.I. COCKTAIL PO ONE (06:06)
[2018-11-22] MEDS ORDERED: LOPRESSOR IV ONE (06:06)
[2018-11-22] MEDS: PROTONIX IV SCH (06:30)
[2018-11-22] MEDS: SODIUM CHLORIDE 0.9% INJ SCH (06:31)
[2018-11-22 07:20] LABS: BASO# 0.02 X1000 (0.0-0.2); BASO% 0.1 % (0.0-0.8); EOS# 0.01 X1000 (0.0-0.7); EOS% 0.1 % (0.0-10.0); HEMATOCRIT 31.6 % (37.0-47.0); HEMOGLOBIN 10.8 g/dL (12.0-16.0); IMM GRAN# 0.05 X1000 (0.0-0.04); IMM GRAN% 0.3 % (0.0-0.5); LYMPH# 2.11 X1000 (1.2-3.4); MCH 30.3 PG (27-31); MCHC 34.2 g/dL (33-37); MCV 88.5 FL (81-99); MONO# 1.64 X1000 (0.11-0.59); MONO% 9.3 % (1.7-9.3); MPV 10.6 FL (7.4-10.4); NEUT# 13.72 X1000 (1.4-6.5); NEUT% 78.2 % (42.2-75.2); PLT 222 X1000 (130-400); RBC 3.57 XMIL (4.2-5.4); RDW 15.1 % (11.5-14.5); WBC 17.55 X1000 (4.8-10.8)
[2018-11-22 07:52] LABS: CALCIUM 8.8 mg/dL (8.8-10.2); CREATININE 1.6 mg/dL (0.5-0.9); POTASSIUM 3.8 mmol/L (3.5-5.1)
[2018-11-22] MEDS: DILAUDID IV PRN ×4 (08:07→22:28)
[2018-11-22] MEDS: MYCOSTATIN SUSP PO SCH ×4 (08:08→20:40)
--- NOTE | 2018-11-22 10:31 | PROVIDER PROGRESS NOTE ---
Progress Note SUBJECTIVE: No acute overnight events. Afebrile. Patient reports nausea without vomiting. Tolerating clears. No CP, SOB. +BM, nonbloody. OBJECTIVE Last Vital Signs Temp 98.5 F 11/22/18 08:00 Pulse 108 H 11/22/18 08:00 Resp 20 11/22/18 04:00 BP 108/64 11/22/18 08:00 Pulse Ox 100 11/22/18 08:00 Height 5 ft 6 in Weight 212 lb 12.8 oz GEN: awake, alert, NAD HEENT: anicteric, MMM NECK: supple, no jvd CV: RRR, no murmurs PULM: CTAB, no wheezing ABD: obese, BS present, ND, mild to moderate TTP in epigastric area without rebound or guarding EXT: no cce NEURO: nonfocal LABS 11/22/18 11/22/18 06:39 06:39 WBC 17.55 H Hgb 10.8 L Plt Count 222 Sodium 142 Potassium 3.8 D Chloride 106 Carbon Dioxide 20 L BUN 33 H Creatinine 1.6 H Glucose 145 H Magnesium cdiff negative BCx2 NGTD C19-9 pending A/P: Ms. Nadya Brown is a 63 year old woman with PMH of HTN, HLD, ICM with EF of 35-40% s/p ICD, CAD, NIDDM2 who presented with acute pancreatitis found to have inflammation vs mass in the pancreatic head on non-contrast CT A/P. Labs also notable for leukocytosis, elevated Cr suggestive of RADHA on CKD. The CT is highly concerning for underlying malignancy given reported history of chronic abdominal pain and abnormal weight loss. LFTs were normal on admission. She continues to mild to moderate epigastric pain. She is tolerating clears. Mild nausea without vomiting. Normal brown BM today. # Acute pancreatitis: unclear etiology; TG elevated but not enough to cause pancreatitis; concerning for underlying malignancy - continue analgesics as needed - continue IVFs at 150 mL/hr - serial abdominal exams - trending CMP, CBC daily # Inflammation vs pancreatic head mass: given RADHA and low GFR; unable to obtain contrasted study, unable to do MRI due to ICD - recommend outpatient EUS with FNA in 1 month once acute pancreatitis resolves # Leukocytosis: likely reactive; BCx2 NGTD x48 hours; on empiric zosyn; will stop antibiotics # RADHA on probable CKD: improved with IVFs; holding nephrotoxic agents, renally dose meds, trend Cr # ICM: holding home BP meds # DM2: SSI # PUD: continue PPI IV once daily Will follow with you. Please call with questions or concerns
[2018-11-22 11:17] LABS: INR 1.06; PROTIME 14.7 Seconds (11.0-16.0)
[2018-11-22] MEDS ORDERED: NS 250 ML ONE (13:37)
--- NOTE | 2018-11-22 14:06 | PROGRESS NOTE ---
DATE: 11/22/2018 SUBJECTIVE: The patient is still complaining of abdominal pain and nausea. OBJECTIVE: Vital Signs: Temperature 98.5 degrees, heart rate 108, respiratory 17, blood pressure 108/64, and O2 saturation 100% on room air. General: This is a chronically ill-appearing 63- year-old female lying in bed in no acute distress. Cardiovascular: S1, S2 heard. No murmurs, gallops, or rubs. Regular rate and rhythm. Respiratory: Clear bilaterally to auscultation. No work of breathing or using accessory muscles. Abdomen: Soft. Mildly tender to palpation in the epigastric area in the left upper quadrant as well, but there are no signs of peritoneal irritation. Bowel sounds are present. No organomegaly. Extremities: No clubbing, cyanosis, or edema. Peripheral pulses present in both legs. Neurological: Patient is alert and oriented x3. Moves all 4 extremities. LABORATORY DATA: White cell count 17.55. Hemoglobin 10.8, hematocrit 31.6 and platelets 222,000. BMP remarkable for creatinine of 1.6. ASSESSMENT AND PLAN: 1. Pancreatitis versus pancreatic malignancy. Clinically, patient is still complaining of pain in the epigastric area so we are going to adjust the doses of pain medications accordingly. We will increase the dose of Dilaudid 2 mg IV q.3 hours. We will continue to monitor. GI has evaluated this patient, and recommended to continue with conservative management. 2. Leukocytosis, most likely reactive. GI has stopped antibiotics. Patient was on Zosyn. We agreed with the plan. 3. Chronic kidney disease stage 2. Creatinine is 1.6 today. We will continue to monitor. BMP daily. 4. History of congestive heart failure. Patient is not on any exacerbation. No signs of heart failure as well. We will continue to monitor this patient. 5. Diabetes mellitus type 2. We have held metformin for this patient. We will continue to use insulin sliding scale and Accu-Chek before meals and also at bedtime. 6. History of hypertension. At this point, I think the patient's blood pressure is okay. We are not going to restart any blood medication yet. 7. Anemia of chronic disease. The patient will continue with checking CBC daily. 8. Disposition: We will continue to monitor this patient closely. cc: Daniel Carmona MD
--- NOTE | 2018-11-22 16:11 | Diag Imaging Result Doc PS360 ---
EXAM: CHEST-PORTABLE HISTORY: PICC placement TECHNIQUE: Portable chest COMPARISON: 11/20/2018 FINDINGS: The lungs are well expanded. The heart is not enlarged. There is a left-sided pacemaker. A left-sided PICC line has been placed since the prior study. The tip lies near the junction of the superior vena cava and right atrium. The vessels are not distended. There are no infiltrates. No effusion identified. IMPRESSION: Left-sided PICC line in good position Electronically signed by Uriah Landis 11/22/2018 4:09 PM
[2018-11-23] MEDS: VICOPROFEN 200/7.5 MG PO SCH (03:29)
[2018-11-23] MEDS: ZOSYN 2.25 GM in NS 50 ML IV SCH ×4 (03:29→20:33)
[2018-11-23] MEDS: NS 1,000 ML IV SCH ×4 (03:30→12:11)
[2018-11-23] MEDS: PROTONIX IV SCH (05:06)
[2018-11-23] MEDS: DILAUDID IV PRN ×5 (05:06→22:07)
[2018-11-23 06:16] LABS: BASO# 0.03 X1000 (0.0-0.2); BASO% 0.2 % (0.0-0.8); EOS# 0.09 X1000 (0.0-0.7); EOS% 0.7 % (0.0-10.0); HEMATOCRIT 29.1 % (37.0-47.0); HEMOGLOBIN 9.7 g/dL (12.0-16.0); IMM GRAN# 0.04 X1000 (0.0-0.04); IMM GRAN% 0.3 % (0.0-0.5); LYMPH# 2.82 X1000 (1.2-3.4); LYMPH% 22.3 % (20.5-51.1); MCH 29.6 PG (27-31); MCHC 33.3 g/dL (33-37); MCV 88.7 FL (81-99); MONO# 1.42 X1000 (0.11-0.59); MONO% 11.3 % (1.7-9.3); MPV 10.1 FL (7.4-10.4); NEUT# 8.22 X1000 (1.4-6.5); NEUT% 65.2 % (42.2-75.2); PLT 177 X1000 (130-400); RBC 3.28 XMIL (4.2-5.4); WBC 12.62 X1000 (4.8-10.8)
[2018-11-23] MEDS: HUMALOG SUBQ SCH ×4 (06:36→22:07)
[2018-11-23 06:49] LABS: CREATININE 1.2 mg/dL (0.5-0.9); POTASSIUM 3.8 mmol/L (3.5-5.1)
[2018-11-23] MEDS: MYCOSTATIN SUSP PO SCH ×4 (08:21→20:33)
--- NOTE | 2018-11-23 09:20 | PROGRESS NOTE ---
DATE: 11/23/2018 SUBJECTIVE: This patient is lying comfortably in bed. WBC decreased from 17 to 12. No fever, no chills. She is alert and oriented x2. She is not oriented to time. She is following commands and moving all 4 extremities. She states that she has abdominal soreness, mostly at the level of the periumbilical area. She has a history of congestive heart failure with an estimated ejection fraction around 35 to 40 percent on an echocardiogram done on 01/05/2018. She has been placed on IV fluids but since she is not having pain and it looks like she is tolerating liquid diet, I will decrease the amount of IV fluids and I will continue with liquid diet. Vital signs are stable. She has been having bowel movements. Her creatinine level is 1.2, which is her baseline. CT of the abdomen and pelvis showed an inflammation versus mass in the head of the pancreas, the possibility of neoplastic disease cannot be excluded, and followup contrast examination will be helpful in this regard, so I will discuss with Gastroenterology department the possibility of doing an MRI of the abdomen. OBJECTIVE: Vital Signs: Temperature 98 degrees, pulse 104, respiratory rate 20, blood pressure 136/83, oxygen saturation 100% on room air. HEENT: Head normocephalic. No trauma. PERRLA. Neck: Supple. No JVD. No masses. Central trachea. Chest: Clear to auscultation. No wheezing. No rales. Abdomen: Soft. Some tenderness to palpation at the level of the periumbilical area and epigastric area. No signs of peritoneal irritation. Bowel sounds present. No hepatosplenomegaly. Extremities: No clubbing, no cyanosis. Trace edema. Neurological: The patient is alert and oriented x2. She is not oriented to time. LABORATORY DATA: WBC 12.6, hemoglobin 9.7, hematocrit 29.1, platelets 177,000. Sodium 137, potassium 3.8, chloride 106, bicarbonate 20, BUN 20, creatinine 1.2 glucose 127, calcium 9. ASSESSMENT AND PLAN: 1. Pancreatitis versus pancreatic mass/malignancy. This patient is still complaining of some abdominal discomfort, soreness. We will continue with the IV medications for her pain. Gastroenterology department already following this patient. We will monitor, we probably will get a CT or MRI of the abdomen in the near future with contrast. 2. Leukocytosis, probably reactive. Antibiotics were stopped. WBC decreased from 17 to 12. 3. Chronic kidney disease stage II. BUN and creatinine down to baseline. Will monitor. 4. History of congestive heart failure, not in exacerbation but she is getting IV fluids which I have decreased. She has some lower extremity trace edema now, she is not complaining of shortness of breath and she is not having any signs of congestive heart failure. We have an echocardiogram done last year that showed an ejection fraction of 35 to 40 percent, 5. Type 2 diabetes. Continue with same management. Stable. Continue with sliding scale insulin and pattern blood sugar. 6. History of hypertension, stable. 7. Anemia of chronic disease. Continue to monitor. cc: Smith Alvarez MD
[2018-11-23] MEDS: PHENERGAN IV PRN ×2 (12:11→20:34)
[2018-11-23] MEDS: NORCO-7.5 PO PRN (20:33)
[2018-11-24] MEDS: PHENERGAN IV PRN ×3 (02:33→16:11)
[2018-11-24] MEDS: NS 1,000 ML IV SCH ×3 (02:33→18:40)
[2018-11-24] MEDS: NORCO-7.5 PO PRN ×3 (02:33→16:11)
[2018-11-24] MEDS: ZOSYN 2.25 GM in NS 50 ML IV SCH ×4 (02:34→21:32)
[2018-11-24] MEDS: PROTONIX IV SCH (05:22)
[2018-11-24] MEDS: HUMALOG SUBQ SCH ×4 (06:24→21:33)
[2018-11-24 06:27] LABS: BASO# 0.04 X1000 (0.0-0.2); BASO% 0.2 % (0.0-0.8); EOS# 0.08 X1000 (0.0-0.7); EOS% 0.4 % (0.0-10.0); HEMOGLOBIN 9.3 g/dL (12.0-16.0); IMM GRAN# 0.04 X1000 (0.0-0.04); IMM GRAN% 0.2 % (0.0-0.5); LYMPH# 2.17 X1000 (1.2-3.4); LYMPH% 12.1 % (20.5-51.1); MCH 29.8 PG (27-31); MCHC 33.2 g/dL (33-37); MCV 89.7 FL (81-99); MONO# 1.73 X1000 (0.11-0.59); MONO% 9.6 % (1.7-9.3); MPV 10.1 FL (7.4-10.4); NEUT# 13.91 X1000 (1.4-6.5); NEUT% 77.5 % (42.2-75.2); PLT 176 X1000 (130-400); RBC 3.12 XMIL (4.2-5.4); RDW 15.2 % (11.5-14.5); WBC 17.97 X1000 (4.8-10.8)
[2018-11-24 06:51] LABS: AGAP 13; BUN 13 mg/dL (8-22); CALCIUM 9.4 mg/dL (8.8-10.2); CHLORIDE 107 mmol/L (98-107); COSMO 281; CREATININE 0.9 mg/dL (0.5-0.9); ESTIMATED GFR > 60; GLUCOSE 124 mg/dL (70-104); POTASSIUM 4.1 mmol/L (3.5-5.1); SODIUM 140 mmol/L (136-145); TCO2 20 mmol/L (25-35)
[2018-11-24] MEDS: DILAUDID IV PRN ×4 (08:10→21:32)
[2018-11-24] MEDS: MYCOSTATIN SUSP PO SCH ×4 (08:52→21:32)
[2018-11-24] MEDS: SODIUM CHLORIDE 0.9% INJ PRN ×2 (08:53→16:11)
[2018-11-24] MEDS ORDERED: MAGNESIUM SULFATE 2 GM/S.W.I. 2 GM/50 ML IVPB IV ONE (11:17)
--- NOTE | 2018-11-24 11:52 | PROGRESS NOTE ---
DATE: 11/24/2018 SUBJECTIVE: This patient is still complaining of abdominal pain. She is still on a liquid diet, but it looks like she does not feel too good when she drinks liquids. She is still nauseated a little bit on and off. There is a possible pancreatic mass. CA antigen 19/9 is 5, which is low. Dr. Guevara from Gastroenterology Department evaluated this patient, and he has recommended to wait for this result, which is negative, and probably she will benefit from endoscopic ultrasound as an outpatient in 1 month once the pancreatitis has resolved. For now, will continue with the same management. OBJECTIVE: Vital Signs: Temperature 97.9 degrees, pulse 115, respiratory rate 20, blood pressure 134/70, oxygen saturation 97% on room air. HEENT: Head normocephalic. No trauma. PERRLA. Neck: Supple. No JVD. No masses. Central trachea. Chest: Clear to auscultation. No wheezing. No rales. Abdomen: Soft. Some tenderness to palpation at the level of the periumbilical area and epigastric area. No signs of peritoneal irritation. Bowel sounds present. No hepatosplenomegaly. Extremities: No clubbing. No cyanosis. Trace edema. Neurological: The patient is alert and oriented x2. She is not oriented to time. She is following commands and moving all 4 extremities. LABORATORY DATA: WBC 17.9, hemoglobin 9.3, hematocrit 28, platelets 176,000. Sodium 140, potassium 4.1, chloride 107, bicarbonate 20, BUN 13, creatinine 0.9, glucose 124, calcium 9.4. Magnesium 1.2. ASSESSMENT AND PLAN: 1. Pancreatitis. Continue with intravenous fluids and pain medication. She has been placed on a liquid diet. There is a possibility of a pancreatic mass. Gastroenterology Department already evaluated this patient, and Dr. Guevara has recommended that probably this patient will benefit from endoscopic ultrasound as an outpatient in 1 month once the pancreatitis has resolved. Also, he checked the CA19-9, which is negative. Leukocytosis is likely reactive. Will monitor for now. I checked her white blood cells from prior admissions, and basically since 2016, this patient's white blood cells have been elevated. 2. Chronic kidney disease. BUN and creatinine are normal today. Probably, this is her baseline. Will continue to monitor. 3. History of congestive heart failure, not in exacerbation. She is getting intravenous fluids. She has an ejection fraction of 35% to 40%, so we need to monitor this patient closely for any signs of congestive heart failure exacerbation. 4. Type 2 diabetes. Continue with same management. Stable. Continue with sliding scale insulin and pattern blood sugar. 5. History of hypertension, stable. 6. Anemia of chronic disease. Will monitor. cc: Smith Alvarez MD
[2018-11-25] MEDS: NS 1,000 ML IV SCH ×3 (02:36→13:34)
[2018-11-25] MEDS: PHENERGAN IV PRN ×3 (02:43→20:58)
[2018-11-25] MEDS: ZOSYN 2.25 GM in NS 50 ML IV SCH ×2 (02:44→10:30)
[2018-11-25] MEDS: NORCO-7.5 PO PRN ×3 (02:44→21:00)
[2018-11-25] MEDS: DILAUDID IV PRN ×5 (04:59→22:23)
[2018-11-25] MEDS: PROTONIX IV SCH (05:00)
[2018-11-25] MEDS: HUMALOG SUBQ SCH ×3 (06:40→16:28)
[2018-11-25 07:17] LABS: ESTIMATED GFR > 60
[2018-11-25 07:27] LABS: AGAP 17; ALBUMIN 2.9 g/dL (3.5-5.0); ALKALINE PHOSPHATASE 117 U/L (32-104); BUN 11 mg/dL (8-22); CALCIUM 9.5 mg/dL (8.8-10.2); CHLORIDE 111 mmol/L (98-107); COSMO 286; GLUCOSE 128 mg/dL (70-104); GOT 29 U/L (10-30); GPT 17 U/L (10-36); MAGNESIUM 1.5 mg/dL (1.5-2.7); PHOSPHORUS 2.9 mg/dL (2.7-4.5); POTASSIUM 4.1 mmol/L (3.5-5.1); SODIUM 143 mmol/L (136-145); TCO2 15 mmol/L (25-35); TOTAL BILIRUBIN 0.61 mg/dL (0.20-1.00); TOTAL PROTEIN 5.9 g/dL (6.3-8.3)
[2018-11-25 07:53] LABS: BASO# 0.04 X1000 (0.0-0.2); BASO% 0.2 % (0.0-0.8); EOS# 0.08 X1000 (0.0-0.7); EOS% 0.5 % (0.0-10.0); HEMATOCRIT 27.3 % (37.0-47.0); HEMOGLOBIN 9.1 g/dL (12.0-16.0); IMM GRAN# 0.07 X1000 (0.0-0.04); IMM GRAN% 0.4 % (0.0-0.5); LYMPH# 2.59 X1000 (1.2-3.4); LYMPH% 15.2 % (20.5-51.1); MCH 29.7 PG (27-31); MCHC 33.3 g/dL (33-37); MCV 89.2 FL (81-99); MONO# 1.59 X1000 (0.11-0.59); MONO% 9.3 % (1.7-9.3); MPV 10.8 FL (7.4-10.4); NEUT# 12.64 X1000 (1.4-6.5); NEUT% 74.4 % (42.2-75.2); PLT 165 X1000 (130-400); RBC 3.06 XMIL (4.2-5.4); RDW 15.2 % (11.5-14.5); WBC 17.01 X1000 (4.8-10.8)
--- NOTE | 2018-11-25 08:07 | EKG Report ---
Test Performed on : 11/25/2018 07:54:41 AM Test Reason : SVT Blood Pressure : / mmHG Vent. Rate : 156 BPM Atrial Rate : 166 BPM P-R Int : 000 ms QRS Dur : 104 ms QT Int : 304 ms P-R-T Axes : 000 -37 127 degrees QTc Int : 489 ms Supraventricular tachycardia. Left axis deviation Anterolateral infarct , age undetermined Abnormal ECG When compared with ECG of 20-NOV-2018 03:16, (Unconfirmed) Significant changes have occurred Unconfirmed Result
[2018-11-25] MEDS ORDERED: CARDIZEM IV ONE (08:24)
--- NOTE | 2018-11-25 08:42 | Diag Imaging Result Doc PS360 ---
CHEST-PORTABLE - 11/25/2018 INDICATION: SOB COMPARISON: 11/22/2018 FINDINGS: Stable biventricular pacemaker in good position. Stable left-sided PICC line in good position. Heart size and pulmonary vascularity is top normal. No infiltrates or edema. IMPRESSION: No acute disease. Electronically signed by Austin Mantilla 11/25/2018 8:40 AM
[2018-11-25] MEDS: MAGNESIUM SULFATE 2 GM/S.W.I. 2 GM/50 ML IVPB IV ONE ×2 (08:49→08:50)
[2018-11-25] MEDS: MYCOSTATIN SUSP PO SCH ×4 (08:50→21:00)
--- NOTE | 2018-11-25 08:58 | PROGRESS NOTE ---
DATE: 11/25/2018 SUBJECTIVE: Patient is still complaining of abdominal pain, but the pain seems to be a little bit better. She is tolerating a little bit better the fluids as well. She was admitted due to pancreatitis. There is a possibility of this patient having a pancreatic mass, but that will be worked up by Gastroenterology Department in a month or so once the pancreatitis is completely resolved. Today the nurse called me to evaluate this patient because she has been having elevated heart rate. EKG showed supraventricular tachycardia. I went ahead and did vagal maneuvers, but the heart rate is still elevated around 155. She is not complaining of chest pain or shortness of breath. I will get an EKG, TSH. I will ask Cardiology Department to evaluate this patient, and she will receive a bolus of Cardizem IV, around 20 mg x1. Her magnesium is borderline low. I replaced it yesterday because it was 1.2, today it is 1.5. OBJECTIVE: Vital Signs: Temperature 97.2 degrees, pulse 156, respiratory rate 19, blood pressure 117/69, oxygen saturation 100% on room air. HEENT: Head normocephalic. No trauma. PERRLA. Neck: Supple. No JVD. No masses. Central trachea. Chest: Clear to auscultation. No wheezing. Decreased breath sounds at the bases. Abdomen: Soft. Some tenderness to palpation at the level of the periumbilical area and epigastric area. No signs of peritoneal irritation. Positive bowel sounds. No hepatosplenomegaly. Extremities: No clubbing, no cyanosis. Trace edema. Neurological: The patient is alert and oriented x3. She has been oriented to time on and off. She is following commands and moving all 4 extremities. She is answering my questions. LABORATORY: WBC 17, hemoglobin 9.1, hematocrit 27.3, platelet count 165,000. Sodium 143, potassium 4.1, chloride 111, bicarbonate 15, BUN 11, creatinine 1, glucose 128, calcium 9.5, magnesium 1.5. AST 29, ALT 17, alkaline phosphatase 117. Albumin 2.9. ASSESSMENT AND PLAN: 1. Pancreatitis. We will continue with gentle IV fluids and pain medication. She has been placed on a liquid diet and it looks like she has been tolerating that a little bit better. There is a possible pancreatic mass. Gastroenterology Department already evaluated this patient and Dr. Guevara has recommended that probably this patient will benefit from an endoscopic ultrasound as an outpatient in 1 month once the pancreatitis has resolved. Also, he checked the CA 19-9, which is negative. We believe the leukocytosis is likely reactive, but given her current condition, I will want to rule out an infection, so I have consulted the Infectious Disease doctor to evaluate this patient. If there is no infection, probably we can get the customer pricing manager-oncologist as an outpatient, but there is a possibility of having a leukocytosis that is likely reactive. 2. Supraventricular tachycardia. This morning I received a call from the nurse because this patient was tachycardic. We did an EKG that showed supraventricular tachycardia. I did some vagal maneuvers, but the heart rate was still elevated at 155. She is asymptomatic. She is not complaining of chest pain or shortness of breath. I requested an x-ray, TSH and I will give her a dose of magnesium because it is borderline low. She already received a dose yesterday. I will treat her with diltiazem. I will start with 20 mg IV x1 to see how she does. Cardiology Department has been consulted. 3. Chronic kidney disease. BUN and creatinine at baseline, we will monitor. 4. History of congestive heart failure, not in exacerbation. She is getting IV fluids gently due to her pancreatitis. The ejection fraction is around 35 to 40 percent, so we need to monitor this patient closely for any signs of congestive heart failure exacerbation. 5. Type 2 diabetes, stable. Continue with sliding scale insulin and pattern of blood sugar. 6. History of hypertension, stable. 7. Anemia of chronic disease. We will monitor. cc: Smith Alvarez MD
--- NOTE | 2018-11-25 10:47 | GASTROENTEROLOGY PROGRESS NOTE ---
DATE: 11/25/2018 SUBJECTIVE: Resting in bed. She is feeling better. She denies any nausea, vomiting. She continues to have abdominal discomfort. This morning, she went into SVT. Dr. Amezquita is working on that. OBJECTIVE: Vital Signs: Temperature 97.2, pulse of 156, respiratory rate of 19, blood pressure 111/69, saturating 100% on room air. Body weight of 212 pounds 12.8 ounces. BMI of 34.3 kg m2. General: Lying in bed, in no acute distress. HEENT: Pale conjunctivae. No icterus. Neck: Supple. Abdomen: Discomfort in the epigastrium. No rebound. No guarding. Obese. Extremities: No cyanosis clubbing. Neurologic: Alert, awake, oriented x3. LABORATORY DATA: Hemoglobin and hematocrit are 9.1 and 27.3, white count of 17.01, platelet count of 165,000. Sodium 143, potassium 4.1, chloride 111, bicarb 15, anion gap of 17, BUN of 11, creatinine 1, glucose of 120, calcium 9.5, phosphorus 2.9, magnesium 1.5, total bilirubin is 0.61, AST 29, ALT 17, alkaline phosphatase 170, total protein is 5.9, albumin of 2.9. CA 99 is normal, level of 5. TSH 1.32. Chest x-ray done today showed no acute disease. Stable biventricular pacemaker in good position and stable left-sided PICC line in good position. No infiltrate or edema. IMPRESSION AND PLAN: 1. Pancreatitis. She will continue with IV fluids and IV pain control. Our CA-19-9 is negative. She will need to follow up with Dr. Pack as an outpatient in 4 weeks. At that time, we will decide about possible endoscopic ultrasound. 2. Anemia. Continue to watch for now, transfuse as needed. She had a recent endoscopy done by Dr. Pack. We will review the reports. 3. Supraventricular tachycardia. She is being worked up by the primary care team. 4. Chronic kidney disease is improved. Her BUN is normal, creatinine is 1. 5. History of congestive heart failure. Aware. Ejection fraction is 35%-40%. 6. Type 2 diabetes on sliding scale insulin. 7. Obesity. The patient counseled to lose weight. 8. Hypertension. Aware. 9. Gastrointestinal prophylaxis with proton pump inhibitors. 10. Bowel regimen. Will start with MiraLAX once daily. 11. Will order ultrasound of the abdomen to evaluate the common bile duct for any other pathology like sludge causing her pancreatitis. We will also check IgG 4 level. The above plans discussed with the patient and all questions answered. Please call us with any further questions. cc: MD Smith Cobian MD MTDParesh
--- NOTE | 2018-11-25 10:49 | Diag Imaging Result Doc PS360 ---
US ABDOMEN-COMPLETE - 11/25/2018 INDICATION: pancreatitis and eval for sludge COMPARISON: CT from 11/19/2018 FINDINGS: The gallbladder is absent. The pancreas is largely obscured by bowel gas. No obvious masses. The liver, spleen, and both kidneys are normal. Spleen size is 10 x 3.9 cm. Common bile duct measures 4 mm. Aorta, IVC, and main portal vein are patent. IMPRESSION: Negative exam. Electronically signed by Austin Mantilla 11/25/2018 10:47 AM
[2018-11-25] MEDS: LANOXIN IV SCH ×3 (11:10→18:31)
[2018-11-25] MEDS: LOPRESSOR PO SCH ×3 (11:10→21:00)
--- NOTE | 2018-11-25 11:54 | INFECTIOUS DISEASE CONSULT REP ---
DATE: 11/25/2018 CONCLUSION: The patient continues to have leukocytosis. I think this is due to pancreatitis. RECOMMENDATIONS: I have discontinued Zosyn and have placed the patient on meropenem. DISCUSSION: The patient was unable to provide a history and no family member is present. She came into the hospital with abdominal pain. Her CT scan of the abdomen and pelvis showed pancreatic inflammation versus cancer. She has an abdominal ultrasound which did not show pancreatitis and did show that she had a cholecystectomy. Blood cultures, urine culture and Clostridium difficile toxin are all negative. The urinalysis did not show any white cells or bacteria. [place] [address], hemoglobin 9.1, and platelet count 165,000. Creatinine is 1. GFR is greater than 60. The patient has a past medical history of congestive heart failure, prior cardiac arrest, hyperthyroidism, hypertension, and type 2 diabetes. REVIEW OF SYSTEMS: Unable to obtain. PAST SURGICAL HISTORY: Is positive for implantation of a left-sided defibrillator and is positive for cholecystectomy and implantation of a defibrillator on the left side of the chest. PAST MEDICAL HISTORY: 1. Congestive heart failure. 2. Cardiac arrest. ALLERGY: See patient's has allergy to acetaminophen and oxycodone. HOME MEDICATIONS: 1. Coreg. 2. Flexeril. 3. Lanoxin. 4. Lasix. 5. [place]. 6. Lisinopril/hydrochlorothiazide. 7. Glucophage. 8. Methimazole. 9. Metoprolol. 10. Omeprazole. 11. Zofran. 12. Aldactone. 13. Carafate. PHYSICAL EXAMINATION: Vital Signs: Temperature is 97.2 degrees, pulse 156, respirations 19, blood pressure 117/69. Patient weighs 212 pounds. General: This is an obese, middle-aged female. She is in no acute distress. Head/eyes/ears/nose/throat: She can hear my spoken words and see near objects. She does not have any white coating on her tongue. She is missing most of her teeth. Lungs: Clear to auscultation. Cardiovascular: Heart rate is regular. Abdomen: Soft, but there is some epigastric tenderness. Thorax: The patient has a left- sided defibrillator in place. The site is not tender or draining. Neurologic: The patient is awake. She can move her extremities. Her sensation was intact to touch. Her memory as regarding her medical history was poor. Integument: No rash noted. Thank you for the consult. cc: Ever Nuñez MD MTDD
--- NOTE | 2018-11-25 12:13 | CARDIOLOGY CONSULTATION ---
DATE: 11/25/2018 REQUESTING PHYSICIAN: Consultation requested by hospitalist service. REASON FOR CONSULTATION: Supraventricular tachycardia/arrhythmia. HISTORY: Ms. Brown is 63 years of age and presented to the hospital for admission on November 19 with the complain of abdominal pain. A diagnosis of pancreatitis was established by CT of the abdomen that showed inflammation versus mass in the head of the pancreas. Her lipase and amylase were elevated. The lipase was 422. Normal is up to 60 units/L. The amylase was 264. Normal is up to 200 units/L. The patient has been treated conservatively. GI has been on the case and over the past 24 hours, there was evidence of a rapid heart rate. Telemetry shows a brief episode of "SVT". However, on closer examination, there is some irregularity on the RR interval and for most part, on the telemetry tracings, she appears to be in atrial fibrillation with a rapid response. Eventually, she has slowed down after she was given Cardizem. At about 11 a.m., when I walked into her room, she had converted back to sinus rhythm. She is on atrial sensed V-paced rhythm right now. She denies having any chest pain or shortness of breath or palpitations. She complains of abdominal pain. PAST MEDICAL HISTORY: Positive for a nonischemic dilated cardiomyopathy. She has received an AICD implantation with a biventricular device back on 09/23/2015 following a cardiac arrest. Heart catheterization revealed very mild coronary artery disease. She had impaired left ventricular systolic function. The patient has a history of hyperlipidemia, a history of multinodular goiter with hyperthyroidism in the past, diabetes mellitus type 2, and hypertension. She has some arthritis also. PAST SURGICAL HISTORY: Cholecystectomy and the implantation of the ICD. SOCIAL HISTORY: She is single. Disabled. She has children. Her history is also positive for tobacco use, 35 to 40 years, 1 pack a day. She has quit. FAMILY HISTORY: Mother had kidney failure. HOME MEDICATIONS: At the time of the present admission included carvedilol 12.5 daily, Flexeril 10 mg twice a day, digoxin 0.5 daily, Nexium 40 mg daily, furosemide 40 mg daily, omeprazole 40 mg daily, spironolactone 25 daily, sucralfate 1 g 4 times a day, Zofran 4 mg as needed, methimazole 10 mg daily, metformin 500 twice a day, lisinopril/hydrochlorothiazide 20/25 daily. ALLERGIES: Acetaminophen and oxycodone. REVIEW OF SYSTEMS: Other than what I have already reported, is noncontributory. Multiple systems were checked - cardiopulmonary, neurological, psychiatric, musculoskeletal, hearing, visual, skin, hematological, immunological, etc. The only positive is related to the abdomen that has been hurting and led to the admission to the hospital. PHYSICAL EXAMINATION: Vital Signs: Blood pressure 117/69, pulse 156. Right now, it has dropped back down to 105. Temperature 97.2 degrees, respirations 16. General: She is awake, alert, oriented, in no distress. HEENT: Unremarkable. Chest: Sounds clear to auscultation and percussion. Heart: Heart sounds are regular and rhythmic. I do not hear any gallop or murmur. Abdomen: Very tender over the epigastric area. Extremities: Showed some trace edema. She is obese. Neurological Examination: Nonfocal. Moves 4 extremities. Pulses are somewhat diminished in the legs. No varicose veins. LABORATORY: Sodium 143, potassium 4.1, BUN 11, creatinine 1.0, albumin is 2.9. Her hemoglobin is 9.1, hematocrit 27.3, white cell count 17,010. Her digoxin level on November 20 was 3.79 mg/mL. IMPRESSION: 1. Patient who presented with acute pancreatitis. She has developed a short- lasting episode of paroxysmal atrial fibrillation simulating SVT. 2. Chronic systolic heart failure. 3. Dilated nonischemic cardiomyopathy. 4. Status post automatic implantable cardioverter defibrillator, biventricular device implant in September 2015. 5. Prior cardiac arrest. 6. Obesity. 7. History of tobacco use. RECOMMENDATION: At this point in time, we will keep the patient on beta blockers, digoxin, and perhaps low-dose calcium blockers. We will follow her clinically. Thank you for the opportunity to participate in her evaluation. At some point, once the situation settles down and there is no need for any immediate surgery, the patient may benefit from long- term anticoagulation. cc: MD MINO Can
[2018-11-25] MEDS: MERREM 1 GM in NS 50 ML IV SCH ×2 (13:26→18:32)
[2018-11-26] MEDS: HUMALOG SUBQ SCH ×5 (01:49→21:38)
[2018-11-26] MEDS: NS 1,000 ML IV SCH ×2 (02:48→18:18)
[2018-11-26] MEDS: MERREM 1 GM in NS 50 ML IV SCH ×3 (02:48→18:31)
[2018-11-26] MEDS: LOPRESSOR PO SCH ×4 (02:53→21:38)
[2018-11-26] MEDS: NORCO-7.5 PO PRN ×3 (03:20→21:32)
[2018-11-26] MEDS: LANOXIN IV SCH (03:21)
[2018-11-26] MEDS: PROTONIX IV SCH (06:46)
[2018-11-26] MEDS: DILAUDID IV PRN ×4 (06:46→22:59)
[2018-11-26 07:50] LABS: BASO# 0.04 X1000 (0.0-0.2); BASO% 0.2 % (0.0-0.8); EOS# 0.14 X1000 (0.0-0.7); EOS% 0.7 % (0.0-10.0); HEMATOCRIT 25.8 % (37.0-47.0); HEMOGLOBIN 8.6 g/dL (12.0-16.0); IMM GRAN# 0.08 X1000 (0.0-0.04); IMM GRAN% 0.4 % (0.0-0.5); LYMPH# 1.95 X1000 (1.2-3.4); LYMPH% 10.3 % (20.5-51.1); MCHC 33.3 g/dL (33-37); MCV 89.9 FL (81-99); MONO# 1.55 X1000 (0.11-0.59); MONO% 8.2 % (1.7-9.3); MPV 10.1 FL (7.4-10.4); NEUT# 15.12 X1000 (1.4-6.5); NEUT% 80.2 % (42.2-75.2); PLT 174 X1000 (130-400); RBC 2.87 XMIL (4.2-5.4); WBC 18.88 X1000 (4.8-10.8)
--- NOTE | 2018-11-26 07:54 | EKG Report ---
Test Performed on : 11/26/2018 07:42:37 AM Test Reason : tachycardia Blood Pressure : / mmHG Vent. Rate : 128 BPM Atrial Rate : 128 BPM P-R Int : 152 ms QRS Dur : 142 ms QT Int : 342 ms P-R-T Axes : -13 239 122 degrees QTc Int : 499 ms Atrial-sensed ventricular-paced rhythm with occasional premature ventricular complexes. Abnormal ECG When compared with ECG of 25-NOV-2018 07:54, Electronic ventricular pacemaker has replaced Atrial fibrillation. Unconfirmed Result
[2018-11-26 08:12] LABS: AGAP 13; ALBUMIN 2.8 g/dL (3.5-5.0); ALKALINE PHOSPHATASE 105 U/L (32-104); AMYLASE 110 U/L (20-200); BUN 11 mg/dL (8-22); CHLORIDE 107 mmol/L (98-107); COSMO 275; ESTIMATED GFR > 60; GLUCOSE 124 mg/dL (70-104); GOT 13 U/L (10-30); GPT 11 U/L (10-36); LIPASE 227 U/L (13-60); MAGNESIUM 1.6 mg/dL (1.5-2.7); PHOSPHORUS 2.3 mg/dL (2.7-4.5); POTASSIUM 3.9 mmol/L (3.5-5.1); SODIUM 137 mmol/L (136-145); TCO2 17 mmol/L (25-35); TOTAL BILIRUBIN 0.39 mg/dL (0.20-1.00); TOTAL PROTEIN 5.7 g/dL (6.3-8.3)
[2018-11-26] MEDS: MYCOSTATIN SUSP PO SCH ×4 (08:20→21:38)
[2018-11-26] MEDS: LANOXIN PO SCH (08:20)
--- NOTE | 2018-11-26 14:02 | PROGRESS NOTE ---
DATE: 11/26/2018 SUBJECTIVE: This patient is still complaining of abdominal pain. Heart rate has been going up and down, up to the 130s. She seems to be paced with some PVCs. Cardiology department on board. I will ask today for physical therapy to evaluate this patient as well as occupational therapy. Hopefully, this patient can be discharged in the next 24 to 48 hours. OBJECTIVE: Vital Signs: Temperature 98 degrees, pulse 94, respiratory rate 18, blood pressure 116/78, oxygen saturation 99 on room air. HEENT: Head normocephalic. No trauma. PERRLA. Neck: Supple. No JVD. No masses. Central trachea. Chest: Clear to auscultation. No wheezing. No rales. Decreased breath sounds at the bases. Abdomen: Soft. Some tenderness to palpation at the level of the paraumbilical area mostly and periumbilical area. No signs of peritoneal irritation. Positive bowel sounds. No hepatosplenomegaly. Extremities: No clubbing. No cyanosis. Trace edema. Neurological Examination: The patient is alert. She is oriented. She is following commands and moving all 4 extremities. She is answering my questions but she is complaining of pain. Laboratory: WBC 18.8, hemoglobin 8.6, hematocrit 25.8, platelets 174,000. Sodium 137, potassium 3.9, chloride 107, bicarbonate 17, BUN 11, creatinine 1, glucose 124, calcium 9, magnesium 1.6, albumin 2.8. ASSESSMENT AND PLAN: 1. Pancreatitis. We will continue with the same management. It looks like she has a mass in the pancreas and the gastroenterology department has recommended to do an endoscopic ultrasound as an outpatient, maybe 1 month from now, once the pancreatitis has resolved. CA 19-9 is negative. She is still having leukocytosis. Infectious disease on board. 2. Recent episode of paroxysmal atrial fibrillation simulating supraventricular tachycardia. Cardiology department on board. Heart rate has been going up and down. Probably also is related to her pain. Her heart rate is paced with some premature ventricular contractions. 3. Chronic kidney disease. BUN and creatinine at baseline. 4. History of congestive heart failure, not in exacerbation. We will continue with gentle intravenous fluids due to her pancreatitis. Her ejection fraction was around 35 to 40 percent. 5. Type 2 diabetes, stable. Continue with sliding scale insulin and pattern of blood sugar. 6. History of hypertension, stable. 7. Anemia of chronic disease, aware. cc: Smith Alvarez MD
[2018-11-26] MEDS: PHENERGAN IV PRN ×2 (16:19→21:34)
--- NOTE | 2018-11-26 17:35 | INFECTIOUS DISEASE PROGRESS NO ---
DATE: 11/26/2018 PRESENT ILLNESS: Ms. Brown is being treated for leukocytosis which we think is related to the pancreatitis. MEDICATIONS: Yesterday, she was changed to meropenem 1 g IV every 8 hours. PHYSICAL EXAMINATION: Vital Signs: Temperature is 98 degrees, pulse rate 94, respiratory rate 18, blood pressure 116/78, O2 saturation is 99% on room air. General: This is an obese chronically ill-appearing middle-aged female. She is lying in the bed, currently in no acute distress. HEENT: Atraumatic, normocephalic. Oral mucous membranes are pink and moist. Conjunctivae are pale. Neck: Supple. Trachea is midline. Cardiovascular: Heart rate and rhythm are regular. Ventricular pacing on the monitor. Respiratory: Lung sounds are clear to auscultation bilaterally, diminished in the bases. Extremities: She has some pretibial edema noted bilaterally, 1+. Neurologic: She is drowsy but arousable. She is able to get up to the bathroom with assistance. Abdomen: Soft, obese, and tender over the left upper quadrant area. Integumentary: There is a PICC line in place to her left upper arm. That site is without edema, erythema or drainage. DIAGNOSTIC STUDIES: Today her white count is 8.88, hemoglobin 8.6, platelet count 174,000. Creatinine is 1, estimated GFR is greater than 60, total bilirubin is 0.39, AST 13, ALT 11, alkaline phosphatase 105. Her C difficile toxin was negative. Blood cultures and urine cultures have shown no growth. No imaging reports today. ASSESSMENT AND PLAN: Ms. Brown has a leukocytosis which is thought to be due to her pancreatitis. At this point, we will continue her on the meropenem as ordered. We will also add Micafungin 100mg IV daily for the possibility of a fungal infection. These plans have been discussed with and recommended by Dr. Nuñez. COMORBIDITIES: For Ms. Brown include obesity, diabetes mellitus, congestive heart failure, and presence of a pacemaker/defibrillator. Dictated by SRAVANTHI Voss for Ever Nuñez MD This chart was documented by, SRAVANTHI Voss and accurately reflects the services performed, treatment plan and medical decisions as attested by the providers signature Ever Nuñez MD. cc: Ever Nuñez MD [facility]ITAL[facility]
[2018-11-26] MEDS: MYCAMINE 100 MG in NS 100 ML IV SCH (18:22)
--- NOTE | 2018-11-26 19:43 | CARDIOLOGY PROGRESS NOTE ---
DATE: 11/26/2018 CHIEF COMPLAINT: Tachycardia, irregular heartbeat. SUBJECTIVE: Ms. Brown appears to be somewhat uncomfortable. Her telemetry indicates that she has not had any more runs of atrial fibrillation. She denies having abdominal pain. OBJECTIVE: Vital Signs: Blood pressure is 121/69, temperature 97.8, pulse 107, respirations 16. General: She is awake and alert. She appears to be uncomfortable. Pale. HEENT: Unremarkable. Chest: Diminished breath sounds at the bases. Cardiovascular: Heart sounds are slightly tachycardic, regular. Abdomen: Slightly distended and tender. Extremities: Show no significant edema. Neurologic: Follows commands. Moves all 4 extremities. BLOOD WORK: White count is 18,880. Sodium is 137, potassium 3.9, BUN 11, creatinine 1.0. Lipase 27. Albumin 2.8. IMPRESSION: 1. Patient who had persistent atrial fibrillation. This appears to have settled down with digoxin and metoprolol. 2. Acute pancreatitis. 3. Anemia. 4. Renal dysfunction. 5. Nutritional compromise. RECOMMENDATIONS: At this time we will continue digoxin and metoprolol as we are doing. We will monitor her telemetry. If no bouts of atrial fibrillation happen, we will just stand by. Gastroenterology and infectious disease are on the case. Will follow her as needed. cc: Sacha Camara MD
--- NOTE | 2018-11-26 23:07 | PROVIDER PROGRESS NOTE ---
Progress Note SUBJECTIVE: No acute overnight events. No N/V/F, CP, SOB, rectal bleeding, melena. Tolerating clear liquid diet and ensures. She continues to have epigastric pain that is slightly improved from prior. +BMs. OBJECTIVE Last Vital Signs Temp 97.7 F 11/26/18 20:00 Pulse 116 H 11/26/18 20:00 Resp 18 11/26/18 16:00 BP 131/87 11/26/18 20:00 Pulse Ox 96 11/26/18 20:00 Height 5 ft 6 in Weight 212 lb 12.8 oz GEN: awake, alert, NAD HEENT: anicteric, MMM NECK: supple, no jvd CARDIAC: tachycardic, regular ABD: obese, TTP in epigastric pain, no rebound or guarding, BS present EXT: no cce NEURO: Nonfocal LABS 11/26/18 11/26/18 11/26/18 07:33 07:33 07:33 WBC 18.88 Hgb 8.6 Plt Count 174 Sodium 137 Potassium 3.9 Chloride 107 Carbon Dioxide 17 L BUN 11 Creatinine 1.0 H Glucose 124 H Calcium 9.0 Phosphorus 2.3 L Magnesium 1.6 AST 13 ALT 11 Alkaline Phosphatase 105 H Creatine Kinase 94 Troponin T 0.024 Total Protein 5.7 L Albumin 2.8 L normal CA 19-9 Normal IgG4 US ABDOMEN-COMPLETE - 11/25/2018 INDICATION: pancreatitis and eval for sludge COMPARISON: CT from 11/19/2018 FINDINGS: The gallbladder is absent. The pancreas is largely obscured by bowel gas. No obvious masses. The liver, spleen, and both kidneys are normal. Spleen size is 10 x 3.9 cm. Common bile duct measures 4 mm. Aorta, IVC, and main portal vein are patent. IMPRESSION: Negative exam. A/P: Ms. Nadya Brown is a 63 year old woman with PMH of HTN, HLD, ICM with EF of 35-40% s/p ICD, CAD, NIDDM2 who presented with acute pancreatitis found to have inflammation vs mass in the pancreatic head on non-contrast CT A/P. Labs notable for leukocytosis, elevated Cr suggestive of RADHA on CKD; now resolved. Course complicated by pAFIB with RVR. CA19-9 and IgG4 WNL. Patient tolerating clear liquid diet. # Acute pancreatitis: unclear etiology; TG elevated but not enough to cause pancreatitis; CA19-9 WNL, normal IgG4; concern for underlying malignancy - continue analgesics as needed - continue gentle IVFs - serial abdominal exams - trending CMP, CBC daily - advance to low fat diet as tolerated # Inflammation vs pancreatic head mass: outpatient EUS with FNA in 1 month once acute pancreatitis resolves # Leukocytosis: likely reactive; BCx2 NGTD x48 hours; on empiric merrem and micafungin per ID; recommend discontinuing abx negative clx # RADHA on probable CKD: improved with IVFs; holding nephrotoxic agents, renally dose meds, trend Cr # ICM: on lopressor #pAFIB with RVR: rate control per primary # DM2: SSI # Anemia: stable; trending H/H # PUD: continue PPI IV once daily Will follow with you. Please call with questions or concerns
[2018-11-27] MEDS: NORCO-7.5 PO PRN ×4 (03:28→23:05)
[2018-11-27] MEDS: LOPRESSOR PO SCH ×4 (03:28→20:53)
[2018-11-27] MEDS: MERREM 1 GM in NS 50 ML IV SCH ×3 (03:29→20:53)
[2018-11-27] MEDS: PROTONIX IV SCH (04:57)
[2018-11-27] MEDS: DILAUDID IV PRN ×4 (04:57→20:49)
[2018-11-27] MEDS: HUMALOG SUBQ SCH ×4 (06:18→21:02)
[2018-11-27 07:42] LABS: BASO# 0.04 X1000 (0.0-0.2); BASO% 0.2 % (0.0-0.8); EOS# 0.19 X1000 (0.0-0.7); EOS% 1.2 % (0.0-10.0); HEMATOCRIT 26.3 % (37.0-47.0); HEMOGLOBIN 8.7 g/dL (12.0-16.0); IMM GRAN# 0.09 X1000 (0.0-0.04); IMM GRAN% 0.5 % (0.0-0.5); LYMPH# 2.38 X1000 (1.2-3.4); LYMPH% 14.5 % (20.5-51.1); MCH 29.8 PG (27-31); MCHC 33.1 g/dL (33-37); MCV 90.1 FL (81-99); MONO# 1.56 X1000 (0.11-0.59); MONO% 9.5 % (1.7-9.3); MPV 10.5 FL (7.4-10.4); NEUT# 12.13 X1000 (1.4-6.5); NEUT% 74.1 % (42.2-75.2); PLT 187 X1000 (130-400); RBC 2.92 XMIL (4.2-5.4); RDW 15.1 % (11.5-14.5); WBC 16.39 X1000 (4.8-10.8)
--- NOTE | 2018-11-27 07:59 | EKG Report ---
Test Performed on : 11/27/2018 07:17:23 AM Test Reason : tachycardia Blood Pressure : / mmHG Vent. Rate : 101 BPM Atrial Rate : 101 BPM P-R Int : 130 ms QRS Dur : 132 ms QT Int : 376 ms P-R-T Axes : 007 -82 130 degrees QTc Int : 487 ms Sinus tachycardia. Indeterminate axis Right bundle branch block Septal infarct , age undetermined T wave abnormality, consider lateral ischemia Abnormal ECG When compared with ECG of 26-NOV-2018 07:42, (Unconfirmed) Sinus rhythm. has replaced Electronic ventricular pacemaker Unconfirmed Result
[2018-11-27 08:01] LABS: AGAP 11; ALB/GLOB RATIO 0.9; ALBUMIN 2.7 g/dL (3.5-5.0); ALKALINE PHOSPHATASE 100 U/L (32-104); BUN 12 mg/dL (8-22); CALCIUM 8.6 mg/dL (8.8-10.2); CHLORIDE 110 mmol/L (98-107); COSMO 280; CREATININE 0.9 mg/dL (0.5-0.9); ESTIMATED GFR > 60; GLUCOSE 119 mg/dL (70-104); GOT 13 U/L (10-30); GPT 9 U/L (10-36); SODIUM 140 mmol/L (136-145); TCO2 19 mmol/L (25-35); TOTAL BILIRUBIN 0.34 mg/dL (0.20-1.00); TOTAL PROTEIN 5.7 g/dL (6.3-8.3)
[2018-11-27 08:13] LABS: BANDS 2 % (0-1); LYMPHS 8 % (21-51); MONO 6 % (1-9); NRBC 1 % (0-0); SEGS 84 % (42-75)
[2018-11-27] MEDS: MYCOSTATIN SUSP PO SCH ×4 (08:52→22:00)
[2018-11-27] MEDS: LANOXIN PO SCH (08:52)
[2018-11-27] MEDS: TAPAZOLE PO SCH (10:27)
--- NOTE | 2018-11-27 11:14 | PROGRESS NOTE ---
DATE: 11/27/2017 SUBJECTIVE: Her abdominal pain is better, she is still a little bit tachycardic. We have been adjusting her medications. I communicated with her daughter by phone, and we went through her medications. I will ask for a digoxin level to see if I keep the same dose or I increased the dose. I will stop the lisinopril and hydrochlorothiazide since this patient has pancreatitis. Hopefully, tomorrow I will discharge this patient in the morning. OBJECTIVE: Vital Signs: Temperature 97.8, pulse 105, respiratory rate 19, blood pressure 127/71 and oxygen saturation 100% on room air. HEENT: Head normocephalic. No trauma. PERRLA. Neck: Supple. No JVD. No masses. Central trachea. Chest: Clear to auscultation. No wheezing. No rales. Decreased breath sounds at the bases. Abdomen: Soft. There is some tenderness to palpation at the level of the periumbilical area. No signs of peritoneal irritation. Positive bowel sounds. No hepatosplenomegaly. Extremities: No clubbing. No cyanosis. Trace edema. Neurological: The patient is alert. She is oriented. She is following commands and moving all 4 extremities. LABORATORY: WBC 16.3, hemoglobin 8.7, hematocrit 26.3 and platelets 187,000. Sodium 140, potassium 4, chloride 110, bicarbonate 19, BUN 12, creatinine 0.9, glucose 119, calcium 8.6 and albumin 2.7. ASSESSMENT AND PLAN: 1. Pancreatitis. We will continue with the same management. It looks like she has a possible mass in the head of the pancreas. Gastroenterology department has recommended to do an endoscopic ultrasound as an outpatient maybe in 1 month from now once this patient's pancreatitis has resolved. The CA 19/9 is negative. She is still having leukocytosis. Infectious Disease on board. 2. Possible pancreatic head mass. This could be related to the inflammatory process, she needs to be re-evaluated in 1 month or so to rule out a mass/neoplastic problem. 3. Chronic kidney disease, BUN and creatinine at baseline. 4. History of congestive heart failure, not in exacerbation. Continue with gentle IV fluids due to her pancreatitis. Ejection fraction of around 35 to 40 percent. She has no complaint of chest pain. No shortness of breath. 5. Type 2 diabetes stable. Continue with the same management. 6. History of hypertension stable. 7. Anemia of chronic disease. Aware. cc: Smith Alvarez MD
[2018-11-27] MEDS: ALDACTONE PO SCH (11:41)
[2018-11-27] MEDS: NS 1,000 ML IV SCH (11:42)
--- NOTE | 2018-11-27 13:40 | PROVIDER PROGRESS NOTE ---
Progress Note SUBJECTIVE: No acute overnight events. No N/V/F, CP, SOB. She continue to have some epigastric pain but improving. Her appetite has improved a bit. She is tolerating diet. OBJECTIVE Last Vital Signs Temp 98.1 F 11/27/18 12:00 Pulse 98 H 11/27/18 12:00 Resp 18 11/27/18 12:00 BP 101/54 11/27/18 12:00 Pulse Ox 100 11/27/18 12:00 Height 5 ft 6 in Weight 212 lb 12.8 oz GEN: awake, alert, NAD HEENT: anicteric, MMM NECK: supple, no jvd CARDIAC: RRR, regular ABD: obese, mild TTP in epigastric pain, no rebound or guarding, BS present EXT: no cce NEURO: Nonfocal LABS: 11/27/18 11/27/18 06:50 06:50 WBC 16.39 H Hgb 8.7 L Plt Count 187 Sodium 140 Potassium 4.0 Chloride 110 H Carbon Dioxide 19 L BUN 12 Creatinine 0.9 Total Bilirubin 0.34 AST 13 ALT 9 L Alkaline Phosphatase 100 Total Protein 5.7 L Albumin 2.7 L A/P: Ms. Nadya Brown is a 63 year old woman with PMH of HTN, HLD, ICM with EF of 35-40% s/p ICD, CAD, NIDDM2 who presented with acute pancreatitis found to have inflammation vs mass in the pancreatic head on non-contrast CT A/P. Labs notable for leukocytosis; improving. RADHA on CKD; now resolved. Course complicated by pAFIB with RVR; rate controlled. CA19-9 and IgG4 WNL. Patient tolerating diet. # Acute pancreatitis: unclear etiology; TG elevated but not enough to cause pancreatitis; CA19-9 WNL, normal IgG4; concern for underlying malignancy - continue analgesics as needed - continue gentle IVFs - trending CMP, CBC daily - advance to diabetic fat diet as tolerated # Inflammation vs pancreatic head mass: outpatient EUS with FNA in 1 month once acute pancreatitis resolves # Leukocytosis: likely reactive; improving; BCx2 NGTD x48 hours; on empiric merrem and micafungin per ID; recommend discontinuing abx negative clx # RADHA on probable CKD: improved with IVFs; holding nephrotoxic agents, renally dose meds, trend Cr # ICM: no CP # pAFIB with RVR: rate control per primary # DM2: SSI # Anemia: stable; trending H/H # PUD: continue PPI Will follow with you. Please call with questions or concerns.
[2018-11-27] MEDS: MYCAMINE 100 MG in NS 100 ML IV SCH (18:00)
--- NOTE | 2018-11-27 19:34 | INFECTIOUS DISEASE PROGRESS NO ---
DATE: 11/27/2018 PRESENT ILLNESS: The patient has leukocytosis, which I think is related to her pancreatitis. MEDICATIONS: The patient is on meropenem and yesterday I started micafungin. The patient also is receiving Nystatin swish and swallow. PHYSICAL EXAMINATION: Vital Signs: Temperature is 98 degrees, pulse 103, respirations 17, blood pressure 125/85. General: This is an obese, chronically ill-appearing, middle-aged female. She is in no acute distress. Head, Eyes, Ears, Nose, and Throat: She can hear my spoken words and see near objects. She does not have any white patches on her tongue. Neck: No pain with movement. Lungs: Clear to auscultation. Cardiovascular: Regular heart rate. Thorax: Patient has a pacemaker present in the left upper chest. The site is not tender or swollen. Abdomen: Soft and not tender. Neurologic: The patient is awake tonight. She can move her extremities. There is no tremor. LAB AND X-RAY: CBC shows a white count of 16,390, hemoglobin 8.7, and platelet count 187,000. Creatinine is 0.9. GFR is greater than 60. IgG level is 1280. Blood and urine cultures are negative and stool for Clostridium difficile toxin is negative. ASSESSMENT AND PLAN: Patient has, in my opinion, leukocytosis secondary to pancreatitis. I am going to check her CBC tomorrow and if the white count is continuing to get lower, I will continue the current medications. If it stays the same, then I think she could be discharged on oral antibiotics, to consist of Augmentin and Cipro and fluconazole. If possible, I could have the patient follow up in my office. COMORBIDITIES: The patient is obese. She has diabetes mellitus, congestive heart failure, and she has the presence of a pacemaker/defibrillator. cc: Ever Nuñez MD
[2018-11-28] MEDS: DILAUDID IV PRN ×3 (04:24→17:35)
[2018-11-28] MEDS: MERREM 1 GM in NS 50 ML IV SCH ×3 (04:26→21:44)
[2018-11-28] MEDS: LOPRESSOR PO SCH ×2 (04:26→09:13)
[2018-11-28] MEDS: PHENERGAN IV PRN (04:34)
[2018-11-28] MEDS: NS 1,000 ML IV SCH ×3 (05:10→21:54)
[2018-11-28] MEDS: PROTONIX IV SCH (06:43)
[2018-11-28] MEDS: HUMALOG SUBQ SCH ×4 (06:45→21:54)
--- NOTE | 2018-11-28 07:03 | EKG Report ---
Test Performed on : 11/28/2018 06:57:17 AM Test Reason : tachycardia Blood Pressure : / mmHG Vent. Rate : 128 BPM Atrial Rate : 128 BPM P-R Int : 000 ms QRS Dur : 140 ms QT Int : 346 ms P-R-T Axes : 000 -72 121 degrees QTc Int : 505 ms Ventricular-paced rhythm Abnormal ECG When compared with ECG of 27-NOV-2018 07:17, Electronic ventricular pacemaker has replaced Sinus rhythm. Unconfirmed Result
[2018-11-28 07:20] LABS: BASO# 0.04 X1000 (0.0-0.2); BASO% 0.2 % (0.0-0.8); EOS# 0.39 X1000 (0.0-0.7); EOS% 2.4 % (0.0-10.0); HEMATOCRIT 26.3 % (37.0-47.0); HEMOGLOBIN 8.9 g/dL (12.0-16.0); LYMPH# 3.18 X1000 (1.2-3.4); LYMPH% 19.7 % (20.5-51.1); MCH 30.7 PG (27-31); MCHC 33.8 g/dL (33-37); MCV 90.7 FL (81-99); MONO# 1.69 X1000 (0.11-0.59); MONO% 10.5 % (1.7-9.3); MPV 10.3 FL (7.4-10.4); NEUT# 10.82 X1000 (1.4-6.5); NEUT% 67.2 % (42.2-75.2); PLT 168 X1000 (130-400); RDW 15.4 % (11.5-14.5); WBC 16.12 X1000 (4.8-10.8)
[2018-11-28 07:40] LABS: AGAP 13; BUN 12 mg/dL (8-22); CALCIUM 8.4 mg/dL (8.8-10.2); CHLORIDE 112 mmol/L (98-107); COSMO 285; CREATININE 0.8 mg/dL (0.5-0.9); DIGOXIN 1.8 ng/mL (0.9-2.0); ESTIMATED GFR > 60; GLUCOSE 102 mg/dL (70-104); POTASSIUM 3.9 mmol/L (3.5-5.1); SODIUM 143 mmol/L (136-145); TCO2 18 mmol/L (25-35)
[2018-11-28] MEDS: LANOXIN PO SCH (08:41)
[2018-11-28] MEDS: TAPAZOLE PO SCH (08:41)
[2018-11-28] MEDS: ALDACTONE PO SCH (08:42)
[2018-11-28] MEDS: MYCOSTATIN SUSP PO SCH ×4 (08:44→22:10)
[2018-11-28] MEDS: TOPROL XL PO SCH (08:47)
[2018-11-28] MEDS ORDERED: MIRALAX PO SCH (09:00)
[2018-11-28] MEDS ORDERED: DULCOLAX PR ONE (09:05)
[2018-11-28 09:28] LABS: AMYLASE 144 U/L (20-200); LIPASE 283 U/L (13-60)
--- NOTE | 2018-11-28 09:31 | INFECTIOUS DISEASE PROGRESS NO ---
DATE: 11/28/2018 PRESENT ILLNESS: The patient continues to have leukocytosis, which I think is related to her pancreatitis. MEDICATIONS: The patient is on a combination of meropenem and micafungin. The patient also has received nystatin swish and swallow. PHYSICAL EXAMINATION: Vital Signs: Temperature is 98.1 degrees, pulse 122, respirations 18, blood pressure is 119/76. General: This is an obese, chronically ill-appearing, middle-aged female. She is in no acute distress. Head, eyes, ears, nose, and throat: She can hear my spoken words and see near objects. She has a slight white discoloration of the tongue. Neck: No pain with movement. Lungs: Clear to auscultation. Cardiovascular: Heart rate is regular. Abdomen: Soft and nontender. Thorax: Patient has a pacemaker present in the left upper chest. The site is not swollen or draining. Abdomen: Soft and not tender. Neurologic: The patient is alert. She can move her extremities. There is no tremor. LAB AND X-RAY: There is no new radiographic study. [place] [address], hemoglobin 8.9, and platelet count 168,000. Creatinine Is 0.8. GFR is greater than 60. There is no new radiographic studies scheduled for today. ASSESSMENT AND PLAN: The patient has leukocytosis, which I think is secondary to her pancreatitis. The plan is to send the patient home today on a combination of Augmentin 875 mg and ciprofloxacin 500 mg, each given every 12 hours for a week. I have requested that she come to my office in a week, at which time she will be examined and have and a CBC drawn and possibly some other tests may be done depending on how the patient looks and how her white blood cell count is. COMORBIDITIES: She is obese. She has diabetes mellitus, congestive heart failure, and she has a pacemaker/defibrillator in the left upper chest. cc: Ever Nuñez MD
[2018-11-28] MEDS: MIRALAX PO SCH ×2 (11:41→21:48)
--- NOTE | 2018-11-28 11:46 | PROGRESS NOTE ---
DATE: 11/28/2018 SUBJECTIVE: Today she is complaining of severe abdominal pain, 10/10, and she feels a little bit nauseated. She is a little bit tachycardic, and I believe it is due to her abdominal pain. The plan was to send this patient home today, but given her current presentation, I will hold the discharge for now. I called her daughter to let her know about her pain. I explained to the daughter that she needs to be on a liquid diet at home. She needs to avoid for now solid food, spicy food, fast food, and food with some fat tissue. She seems to understand, and she agreed with the plan. OBJECTIVE: Vital Signs: Temperature 98.1 degrees, pulse 122, respiratory rate 18, blood pressure 119/76, oxygen saturation 100% on room air. HEENT: Head normocephalic, no trauma. PERRLA. Neck: Supple. No JVD. No masses. Central trachea. Chest: Clear to auscultation. No wheezing. No rales. Decreased breath sounds at the bases. Abdomen: Soft. Tenderness to palpation at the level of the periumbilical area. No signs of peritoneal irritation. Positive bowel sounds. Extremities: No edema. No clubbing. No cyanosis. Neurological: The patient is alert. She is oriented. She is following commands and moving all 4 extremities. LABORATORY: WBC 16.1, hemoglobin 8.9, hematocrit 26.3, platelets 168,000. Sodium 143, potassium 3.9, chloride 112, bicarbonate 18 BUN 12, creatinine 0.8, glucose 102 calcium 8.4. ASSESSMENT AND PLAN: 1. Pancreatitis with intractable abdominal pain. Continue with the same management. I will increase the dose of her [place] from 7.5 mg to 10 mg every 4 hours. Normally she has been taking at home [place] 7.5 every 4 hours as needed. Continue with IV fluids. Gastroenterology department has recommended to do an endoscopic ultrasound as an outpatient, maybe in 1 month from now, once this patient's pancreatitis has resolved and she is without pain. The CA19-9 is negative. She is still having leukocytosis. Infectious Disease Department on board. Continue with antibiotics. 2. Possible pancreatic head mass. It could be related to an inflammatory process and/or actually a mass. She will need to follow with Gastroenterology department to do an endoscopic ultrasound as outlined above. 3. Chronic kidney disease (CKD). BUN and creatinine at baseline. 4. History of congestive heart failure (CHF). Not in exacerbation. Continue with gentle IV fluids due to her pancreatitis. Ejection fraction around 35% to 40%. She has not been complaining of chest pain or shortness of breath. 5. Type 2 diabetes. Continue with same management. 6. Anemia of chronic disease. Aware. cc: Smith Alvarez MD
--- NOTE | 2018-11-28 12:43 | GASTROENTEROLOGY CONSULTATION ---
DATE: 11/28/2018 SUBJECTIVE: Patient resting in bed. She complains of abdominal pain. She has been constipated. Her last bowel movement was 3 days ago. She does receive MiraLAX. She denies any nausea or vomiting. OBJECTIVE: Vital signs: Temperature of 98.1 degrees, pulse rate 122, respiratory rate of 18, blood pressure 119/76, saturating 100% in room air. Weight: Body weight of 212 pounds 12.8 ounces, BMI 34 kg/m2. General: The patient is obese, sitting in bed, in no acute distress HEENT: Pale conjunctivae. No icterus. Neck: Supple. Abdomen: Discomfort in the epigastrium. No rebound. No guarding. Apple obese abdomen. Extremities: No cyanosis, clubbing. Neurologic: She is alert, awake, oriented x3. LABORATORY DATA: Hemoglobin is 8.9, hematocrit 26.3, white count of 16.1, platelet count of 168,000. Sodium 140, potassium 3.9, chloride 112, bicarbonate of 18, anion gap 13, BUN of 12, creatinine 0.8, glucose of 102, calcium is 8.4. Her amylase is 144 and lipase has gone up to 283. IMPRESSION AND PLAN: 1. Abdominal pain. This could be secondary from pancreatitis and constipation. We will give her a dose of Dulcolax, and we will keep her on MiraLAX twice daily. We will keep her on IV fluids. We will watch her amylase and lipase. Her workup has been negative. She cannot get a MRI of the abdomen because of congestive heart failure and pacemaker. 2. Possible pancreatic head mass, but the CA19-9 is negative. She will need outpatient EUS with biopsy at a later date. 3. Chronic kidney disease. Continue to watch for now. 4. Congestive heart failure. Continue to follow. 5. Type 2 diabetes on sliding scale insulin. 6. Obesity. Continue to watch. The patient is ready to lose weight. 7. Gastrointestinal (GI) prophylaxis. PPIs. 8. Anemia. We will start her on iron C BID and MVI QD. We will follow along. The above plans were discussed with the patient, and all questions were answered. Please call us with any questions. cc: Sergio Guevara MD [email or web address]
[2018-11-28] MEDS: NORCO-10 PO PRN ×2 (12:45→21:42)
--- NOTE | 2018-11-28 14:04 | Diag Imaging Result Doc PS360 ---
EXAM: CT ABDOMEN W/CONTRAST 11/28/2018 HISTORY: Abdominal pain, pancreatitis, pancreatic mass? TECHNIQUE: This exam was performed using automated exposure control, adjustment of mA or kV according to patient size, and/or use of iterative reconstruction technique. COMMENT: There are small linear opacities in both lower lobes consistent with atelectasis. This was not present on 11/19/2018. There are edematous changes around the pancreas which were not present at the time of the previous examination. There is a irregular area of decreased attenuation and contrast enhancement in the pancreatic head measuring at least 3.5 cm in diameter. This is better demarcated than on the previous noncontrast study. The pancreatic duct is not apparently distended. There has been cholecystectomy. The common bile duct is not distended. The pancreatic mass abuts the second portion of the duodenum. There is no evidence of obstruction. The mass also abuts the superior mesenteric vein over approximately 180 degrees of its circumference. There is no apparent abutment of the superior mesenteric artery. The adrenal glands are not enlarged. There is an apparent stone in the upper pole of the right kidney. The aorta is partially calcified but not distended and the mesenteric and renal arteries appear to be patent. There are some subcentimeter periaortic nodes. There are larger portacaval nodes one of which measures over 15 mm in diameter. There are multiple renal cysts on the right. The liver is unremarkable. The spleen is not enlarged. The appendix is not distended. There is stool throughout much of the colon. Small bowel is not distended. There are degenerative facet changes in the lumbar spine. There is no evidence of acute bony disease. IMPRESSION: Bibasilar atelectasis. Mild pancreatitis. Pancreatic mass in the anterior head. Electronically signed by Jin Balderas 11/28/2018 2:01 PM
[2018-11-28] MEDS: ICAR-C PO SCH (17:42)
[2018-11-28] MEDS: MYCAMINE 100 MG in NS 100 ML IV SCH (17:42)
[2018-11-29] MEDS: DULCOLAX PR SCH ×2 (00:17→08:20)
[2018-11-29] MEDS: DILAUDID IV PRN (00:21)
[2018-11-29 00:45] LABS: AMYLASE 186 U/L (20-200); LIPASE 441 U/L (13-60)
[2018-11-29] MEDS: NORCO-10 PO PRN ×2 (03:45→11:17)
[2018-11-29] MEDS: MERREM 1 GM in NS 50 ML IV SCH (03:47)
[2018-11-29] MEDS: PROTONIX IV SCH (05:24)
[2018-11-29 06:44] LABS: BASO# 0.04 X1000 (0.0-0.2); BASO% 0.3 % (0.0-0.8); EOS# 0.34 X1000 (0.0-0.7); EOS% 2.1 % (0.0-10.0); HEMATOCRIT 25.5 % (37.0-47.0); HEMOGLOBIN 8.4 g/dL (12.0-16.0); IMM GRAN# 0.08 X1000 (0.0-0.04); IMM GRAN% 0.5 % (0.0-0.5); LYMPH# 2.84 X1000 (1.2-3.4); LYMPH% 17.8 % (20.5-51.1); MCH 29.7 PG (27-31); MCHC 32.9 g/dL (33-37); MCV 90.1 FL (81-99); MONO# 1.66 X1000 (0.11-0.59); MONO% 10.4 % (1.7-9.3); MPV 9.7 FL (7.4-10.4); NEUT# 10.97 X1000 (1.4-6.5); NEUT% 68.9 % (42.2-75.2); PLT 167 X1000 (130-400); RBC 2.83 XMIL (4.2-5.4); RDW 15.4 % (11.5-14.5); WBC 15.93 X1000 (4.8-10.8)
[2018-11-29 07:07] LABS: AGAP 14; ALB/GLOB RATIO 0.7; ALBUMIN 2.5 g/dL (3.5-5.0); ALKALINE PHOSPHATASE 90 U/L (32-104); BUN 10 mg/dL (8-22); CHLORIDE 110 mmol/L (98-107); COSMO 278; CREATININE 0.8 mg/dL (0.5-0.9); ESTIMATED GFR > 60; GLUCOSE 93 mg/dL (70-104); GOT 12 U/L (10-30); GPT 7 U/L (10-36); POTASSIUM 3.8 mmol/L (3.5-5.1); SODIUM 140 mmol/L (136-145); TCO2 16 mmol/L (25-35); TOTAL BILIRUBIN 0.29 mg/dL (0.20-1.00)
[2018-11-29 07:19] LABS: EOS 2 % (1-10); LYMPHS 17 % (21-51); MONO 6 % (1-9); NRBC 1 % (0-0); SEGS 75 % (42-75)
[2018-11-29 07:20] LABS: STOMATOCYTES OCCASIONAL; TARGET CELLS OCCASIONAL
[2018-11-29] MEDS: HUMALOG SUBQ SCH ×2 (08:09→11:27)
[2018-11-29] MEDS: ICAR-C PO SCH (08:14)
[2018-11-29] MEDS: ALDACTONE PO SCH (08:14)
[2018-11-29] MEDS: TAPAZOLE PO SCH (08:15)
[2018-11-29] MEDS: MIRALAX PO SCH (08:15)
[2018-11-29] MEDS: LANOXIN PO SCH (08:15)
[2018-11-29] MEDS: MYCOSTATIN SUSP PO SCH (08:18)
[2018-11-29] MEDS: TOPROL XL PO SCH (08:20)
[2018-11-29 08:26] VITALS: BP 121/80
[2018-11-29] MEDS ORDERED: CENTRUM SILVER PO SCH (09:00)
--- NOTE | 2018-11-30 08:51 | DISCHARGE SUMMARY ---
ADMISSION DATE: 11/20/2018 DISCHARGE DATE: 11/29/2018 DISCHARGE DIAGNOSES: 1. Pancreatitis. 2. Intractable abdominal pain. 3. Possible pancreatic head mass. 4. Chronic kidney disease. 5. History of congestive heart failure, not in exacerbation. Ejection fraction around 35% to 40%. 6. Type 2 diabetes. 7. Anemia of chronic disease. 8. Obesity, with a body mass index greater than 34. PROCEDURES PERFORMED: 1. Abdomen and pelvis CT scan, dated 11/19/2018, impression: Inflammation versus mass in the head of the pancreas. The possibility of neoplastic disease cannot be excluded, and followup contrast examination would be helpful in this regard, 2. Chest x-ray, dated 11/20/2018, impression: No acute disease or change from prior. 3. Chest x-ray, dated 11/22/2018, impression: Left sided PICC line in good position, no changes. 4. Chest x-ray, dated 11/25/2018, impression: No acute disease. 5. Abdomen ultrasound, dated 11/25/2018, impression: Negative exam. 6. Abdomen CT, dated 11/28/2018, impression: Bibasilar atelectasis, mild pancreatitis, pancreatic mass in the anterior head. HOSPITAL COURSE: 63-year-old female, admitted on 11/20/2018, presented to the emergency department the day prior to admission complaining of periumbilical and left upper quadrant pain. As per the patient, she has been having some intermittent abdominal pain since June, which she has described as achy in nature, also associated with some bloating and nausea. As per the patient, for 2 weeks, the pain has been more constant and she reported nausea, but no vomiting. She has a history of constipation. Apparently, she has been seen by one of our gastroenterologists before and she had an EGD performed with possible gastric ulcers. She was placed on Carafate and Protonix. She has been reporting some chills, but she denied any fever or body aches. No headache, but apparently she has been having some dizziness. No chest pain. No shortness of breath or cough. No dysuria or frequency. No tingling sensation, numbness, or swelling in the extremities. In the ER, she was noted to have leukocytosis, white blood cell count was around 18.6. Potassium was slightly elevated at 5.2. Sodium 134. BUN and creatinine were elevated. Creatinine at the moment of admission was 2.1 and previously was 1.2 in June 2018. Amylase and lipase were elevated, with amylase being [address] scan of the abdomen and pelvis without contrast showed inflammation and/or mass involving the pancreatic head. She was admitted and was placed on antibiotics and blood cultures were ordered. She was admitted and placed on IV fluids and we were careful about that because of her history of CHF, pain medication as well. Gastroenterology Department evaluated this patient and they agreed with the treatment, which was basically to put this patient n.p.o., IV fluids, and pain medication, with serial abdominal exams. Because of the pancreatic mass, we asked for a CA19-9 which was negative. We thought at the beginning that the leukocytosis was reactive. We did urine culture and blood culture on this patient and both of them were negative. Gastroenterology Department followed this patient closely. At some point, this patient started having some atrial fibrillation. Actually, she developed a short lasting episode of paroxysmal atrial fibrillation simulating SVT. Cardiology Department evaluated this patient and they put this patient on treatment. Heart rate was more stable and we noticed some increase in the heart rate every time this patient was complaining of pain, which was reasonable. We decided to decrease the dose of the digoxin to 125 mcg because at the beginning the digoxin level was a little bit elevated, but we will continue with her home medications, including spironolactone, metoprolol, and of course we will continue with furosemide upon discharge. Infectious Disease Department was consulted due to her leukocytosis, and they have decided to continue with antibiotics. Yesterday, we decided to do a CT of the abdomen with IV contrast which was suggested by Radiology Department. That showed bibasilar atelectasis, mild pancreatitis, and pancreatic mass in the anterior head. Gastroenterology Department will follow this patient as an outpatient, and they will likely do an endoscopic ultrasound to evaluate this possible mass once the pancreatitis is completely resolved. Today, this patient was feeling better. She has been complaining of pain on and off. She will be discharged with pain medication. She is alert and oriented x3. She has requested a walker because she cannot walk properly, which is not new. Vital signs are stable. She is still having some leukocytosis, but Infectious Disease Department will monitor this patient as an outpatient, and she will continue taking antibiotics at home. The hydrochlorothiazide and lisinopril have been stopped due to her history of pancreatitis. OBJECTIVE: Vital Signs: Temperature 97.5 degrees, pulse 100, respiratory rate 18, blood pressure 121/80, oxygen saturation 100% on room air. HEENT: Head normocephalic. No trauma PERRLA. Neck: Supple. No JVD. No masses. Central trachea. Chest: Clear to auscultation. No wheezing. No rales. Decreased breath sounds at the bases. Abdomen: Soft. Some tenderness to palpation at the level of the periumbilical area. No signs of peritoneal irritation. Positive bowel sounds. No hepatosplenomegaly. Extremities: No clubbing, no cyanosis. Trace edema. Neurological: The patient is alert. She is oriented. She is following commands and moving all 4 extremities, but she has some weakness which I believe is chronic. LABORATORY: WBC 15.9, hemoglobin 8.4, hematocrit 25.5, platelets 167,000. Sodium 140, potassium 3.8, chloride 110, bicarbonate 16, BUN 10, creatinine 0.8, glucose 93, calcium 8, albumin 2.5. DISCHARGE MEDICATIONS: 1. Potassium chloride ER 1 mEq capsule p.o. daily. 2. Furosemide 40 mg p.o. daily. 3. Flexeril 10 mg p.o. b.i.d. 4. Carafate 1 g p.o. before meals and at bedtime. 5. Spironolactone 25 mg p.o. daily. 6. Omeprazole 40 mg p.o. daily. 7. Toprol-XL 100 mg p.o. daily. 8. Methimazole 10 mg p.o. daily. 9. Metformin 500 mg p.o. b.i.d. 10. MiraLAX 17 g p.o. b.i.d. 11. Zofran 4 mg p.o. p.r.n. nausea and vomiting. 12. Centrum Silver 1 tablet p.o. daily. 13. Icar C 1 tablet p.o. b.i.d. 14. [place] 10 one tablet p.o. q.4 hours as needed for pain. 15. Digoxin 125 mcg p.o. daily. 16. Ciprofloxacin 500 mg p.o. q.12 hours. 17. Dulcolax 10 mg per rectal b.i.d. 18. Augmentin 875/125 mg tablet q.12 hours. FOLLOWUP: Followup by Dr. Nuñez in 1 week, and followup with Dr. Pack in 3 weeks. Also, follow up with Cardiology Department as scheduled. She will need to call for appointment. TIME DISCHARGING THIS PATIENT: 35 minutes. cc: Smith Alvarez MD
== END 2018-11-29 14:22 | disposition home or self-care (01) | DRG 439 ==
LOC: ED 18:37 → SUATTDRO 11-20 02:57 → EDIPHOLD 11-20 02:57 → 3N 11-20 06:37
PROVIDERS: ATTEND Internal Medicine
CPT/HCPCS: 36569; 51701; 71010; 71045; 74160; 74176; 76700; 80048; 80053; 80162; 81001; 82150; 82550; 82784; 82787; 82948; 83690; 83735; 84100; 84443; 84478; 84484; 85025; 85610; 86301; 87040; 87088; 87324; 93005; 93010; 96365; 96375; 96376; 97162; 97165; 97530; 99285; A9270; C9113; J1160; J1170; J1815; J2185; J2248; J2405; J2543; J2550; J3475; J7030; J7050; P9612; Q9967; S0164; XXXXX

== ENCOUNTER 2019-01-09 14:20 | Inpatient (IN) ==
[2019-01-09] MEDS ORDERED: DILAUDID IV ONE (15:29)
[2019-01-09] MEDS ORDERED: NS 500 ML IV ONE (15:29)
[2019-01-09] MEDS ORDERED: ZOFRAN IV ONE (15:29)
[2019-01-09 15:48] LABS: BASO# 0.04 X1000 (0.0-0.2); BASO% 0.1 % (0.0-0.8); EOS# 0.01 X1000 (0.0-0.7); HEMATOCRIT 32.1 % (37.0-47.0); HEMOGLOBIN 11.2 g/dL (12.0-16.0); IMM GRAN# 0.14 X1000 (0.0-0.04); IMM GRAN% 0.5 % (0.0-0.5); LYMPH# 1.79 X1000 (1.2-3.4); LYMPH% 6.4 % (20.5-51.1); MCH 30.8 PG (27-31); MCHC 34.9 g/dL (33-37); MCV 88.2 FL (81-99); MONO# 2.21 X1000 (0.11-0.59); MONO% 7.9 % (1.7-9.3); MPV 11.3 FL (7.4-10.4); NEUT# 23.84 X1000 (1.4-6.5); NEUT% 85.1 % (42.2-75.2); PLT 148 X1000 (130-400); RBC 3.64 XMIL (4.2-5.4); RDW 14.2 % (11.5-14.5); WBC 28.03 X1000 (4.8-10.8)
[2019-01-09 16:07] LABS: ALBUMIN 3.9 g/dL (3.5-5.0); CREATININE 2.7 mg/dL (0.5-0.9); POTASSIUM 5.5 mmol/L (3.5-5.1); TOTAL BILIRUBIN 0.4 mg/dL (0.20-1.00); TOTAL PROTEIN 7.8 g/dL (6.3-8.3)
[2019-01-09 16:31] LABS: BANDS 1 % (0-1); LYMPHS 7 % (21-51); MONO 4 % (1-9); SEGS 88 % (42-75); TARGET CELLS 1+
[2019-01-09 16:32] LABS: HYPOCHROM OCCASIONAL
--- NOTE | 2019-01-09 17:39 | Diag Imaging Result Doc PS360 ---
CT ABDOMEN W/O CONTRAST - 01/09/2019 INDICATION: UPPER ABD PAIN,PNC MASS,WBC=28K COMPARISON: 12/18/2018 FINDINGS: Evaluation is extremely limited due to lack of intravenous contrast. The lung bases are clear and the heart size is normal. There is a pancreatic mass. No bowel inflammation or free air. No fluid collections. IMPRESSION: No change from prior. This exam was performed using automated exposure control, adjustment of mA or kV according to patient size, and/or use of iterative reconstruction technique Electronically signed by Austin Mantilla 01/09/2019 5:37 PM
[2019-01-09 18:13] LABS: BILIRUBIN URINE NEGATIVE (NEGATIVE); BLOOD URINE NEGATIVE (NEGATIVE); CLARITY CLEAR (CLEAR); COLOR YELLOW; GLUCOSE URINE NEGATIVE (NEGATIVE); KETONE URINE TRACE mg/dL (NEGATIVE); LEUKOCYTES URINE 1+ (NEGATIVE); NITRITE URINE NEGATIVE (NEGATIVE); PROTEIN URINE TRACE mg/dL (NEGATIVE); SP GRAVITY URINE 1.015; UROBILINOGEN URINE NORMAL
[2019-01-09 18:16] LABS: URINE BACTERIA 2+ /HFP; URINE CAST NONE SEEN /LPF; URINE CRYSTAL NONE SEEN /HPF; URINE EPITHELIAL CELLS <10 /HPF (<10); URINE RBC <10 /HPF (<10); URINE SOURCE CATH; URINE WBC <10 /HPF (<10); URINE YEAST NONE SEEN /HPF
--- NOTE | 2019-01-09 18:26 | PROVIDER DOCUMENTATION ---
This chart was entered by Aimee Soler Scribe, acting as scribe for Jose Carlos Lopez MD. HPI-Abdominal Pain/GI Problem - General Chief Complaint: Abdominal Pain Stated Complaint: ABD PAIN/NAUSEA Time Seen by Provider: 01/09/19 15:05 Source: patient Allergies/Adverse Reactions: Patient Allergies Allergy/AdvReac Type Severity Reaction Status Date / Time acetaminophen [From Percocet] Allergy HIVES Verified 11/20/18 05:03 oxycodone [From Percocet] Allergy HIVES Verified 11/20/18 05:03 Home Medications: Home Medication List Medication Instructions Recorded Confirmed Last Taken Type Metformin [Glucophage] 500 mg PO BID CC #60 tablet 08/14/15 11/20/18 11/19/18 Rx Spironolactone [Aldactone] 25 mg PO DAILY #30 tablet 08/14/15 11/20/18 11/19/18 Rx Furosemide [Lasix] 40 mg PO DAILY 09/20/15 11/20/18 Unknown History Metoprolol Succinate E.r. [Toprol 100 mg PO DAILY 09/20/15 11/20/18 11/19/18 History Xl] Cyclobenzaprine [Flexeril] 10 mg PO BID 08/12/18 11/20/18 11/19/18 History Potassium Chloride E.r. [Micro-K] 1 cap PO DAILY 08/12/18 11/20/18 11/19/18 History 10 Sucralfate [Carafate] 1 gm PO AC + HS #120 tab 08/12/18 11/20/18 11/19/18 Rx Methimazole 10 mg PO DAILY 11/20/18 11/20/18 11/19/18 History Omeprazole [Prilosec] 40 mg PO DAILY 11/20/18 11/20/18 11/19/18 History Amoxicillin/Potassium Clav 1 ea PO Q12H #14 tab 11/28/18 Unknown Rx [Augmentin 875-125 Tablet] Ciprofloxacin HCl [Cipro] 500 mg PO Q12H #14 tab 11/28/18 Unknown Rx Bisacodyl [Dulcolax] 10 mg NM BID #60 supp 11/29/18 Unknown Rx Digoxin [Lanoxin] 125 microgm PO DAILY #90 tab 11/29/18 Unknown Rx Hydrocodone/APAP 10 mg/325 mg 1 ea PO Q4H PRN PRN #30 tab 11/29/18 Unknown Rx [Tyler-10] Iron Carbonyl/Ascorbic Acid 1 ea PO BID CC #30 tab 11/29/18 Unknown Rx [Icar-C] Multivitamins/Minerals [Centrum 1 ea PO DAILY #100 tab 11/29/18 Unknown Rx Silver] Ondansetron HCl [Zofran] 4 mg PO PRN PRN #10 tab 11/29/18 Unknown Rx Polyethylene Glycol 3350 [Miralax] 17 gm PO BID #60 powder, packet 11/29/18 Unknown Rx - History of Present Illness-ABD Nature of Presenting Problems: Patient is a 63 year old female who presents to the ED with epigastric abdominal pain and nausea that has been present for 2 weeks. Daughter states patient was diagnosed with pancreatitis in November. Daughter also states patient was informed she has a mass on her pancreas. Denies shortness of breath and cough. Abdominal Pain Onset Location: reports: epigastric Pain Radiation: reports: no radiation Quality of Pain: reports: aching Severity in ED: reports: mild Onset/Duration: reports: other (2 weeks) Timing: reports: still present, getting worse Activities at Onset: reports: light activity Modifying Factors: improves with: nothing Associated Symptoms: reports: nausea Last BM: this morning Dark Stools Present?: reports: none noticed Rectal Bleeding: reports: none Rectal Pain: reports: none Emesis Description: reports: none Bruising or Bleeding Gums?: No Similar Symptoms Previously?: Yes (present for 2 weeks ) Recently seen or treated by another doctor?: Yes Review of Systems - Adult - REVIEW OF SYSTEMS - ADULT Constitutional: reports: no symptoms reported. denies: chills, fever, fatique Eyes: reports: no symptoms reported Ears, Nose, Mouth & Throat: reports: no symptoms reported Cardiovascular: reports: no symptoms reported. denies: chest pain, irregular heart rate, palpitations Respiratory: reports: no symptoms reported. denies: cough, shortness of breath, wheezing Gastrointestinal: reports: see HPI, abdominal pain (epigastric), nausea. denies: diarrhea, vomiting Genitourinary: reports: no symptoms reported Musculoskeletal: reports: no symptoms reported Integumentary: reports: no symptoms reported Neurological: reports: no symptoms reported Psychiatric: reports: no symptoms reported Endocrine: reports: no symptoms reported Hematologic/Lymphatic: reports: no symptoms reported Allergic/Immunologic: reports: no symptoms reported All Other Systems: Reviewed and Negative Past History - Adult - PAST MEDICAL HISTORY-ADULT Review of Records: reports: Nursing Assessment Review, Medications Reviewed, Social history reviewed & non-contributory. Major Childhood Illnesses: reports: denies history Cardiovascular: reports: HTN, hyperlipidemia Respiratory: reports: denies history Gastrointestinal: reports: GERD Obstetrical/Gynecological: reports: denies history Genitourinary: reports: denies history Musculoskeletal: reports: denies history Neurological: reports: denies history Psychiatric: reports: denies history Endocrine/Immune: reports: Diabetes, thyroid disorder Other Conditions: reports: denies history - PRIOR SURGERIES/PROCEDURES Surgical/Procedure History: reports: cholecystectomy - IMMUNIZATION STATUS Childhood Immunizations: See Nurse Assessment Flu Vaccine: See Nurse Assessment - FAMILY HISTORY Family History: reviewed, not pertinent - SOCIAL HISTORY Smoking: cigarettes (former) Substance Use: denies Physical Exam-General - PHYSICAL EXAM-ADULT Initial Vital Signs Reviewed: Yes - CONSTITUTIONAL General Appearance: alert, no apparent distress. negative: lethargic, slow to respond - RESPIRATORY Respiratory: chest non-tender, lungs clear, normal breath sounds. negative: stridor, wheezing - CARDIOVASCULAR Cardiovascular: normal peripheral pulses, regular rate, rhythm. negative: tachycardia, systolic murmur - GASTROINTESTINAL (ABDOMEN) Abdominal Exam: normal bowel sounds, non tender, soft. negative: distended, guarding, rigid - MUSCULOSKELETAL Extremity: non-tender, normal inspection. negative: deformity, erythema - SKIN Integumentary: normal color, normal turgor, warm/dry. negative: cyanosis, ecchymosis, erythema - NEUROLOGIC Neurologic: grossly normal. negative: aphasia, facial droop - PSYCHIATRIC Psych/Mental Status: normal mood/affect, oriented x 3. negative: paranoid Progress - PLAN OF CARE/RESULTS Progress/Plan/Lab Results: Vital Signs - 8 hr 01/09/19 14:24 Temperature 97.9 F Pulse Rate 127 H Respiratory Rate 19 Blood Pressure 114/73 O2 Sat by Pulse Oximetry 98 Orders Category Date Time Status Saline Loc DIRECTED Care 01/09/19 15:19 Active NPO Diet 01/09/19 15:19 Active AMYLASE [CHEM] Stat Lab 01/09/19 15:19 Ordered CBC WITH ELECTRONIC DIFF [HEME] Stat Lab 01/09/19 15:19 Ordered COMPREHENSIVE METABOLIC PANEL [CHEM] Stat Lab 01/09/19 15:19 Uncollected LIPASE [CHEM] Stat Lab 01/09/19 15:[address] W/POSS RFLX CULT [URINALYSIS] Stat Lab 01/09/19 15:19 Uncollected Result Diagrams: 01/09/19 15:27 01/09/19 15:27 - CONSULTS/PCP/HOSPITALIST Notification #1 *Consult/PCP/Hospitalist*: DR COLON Time Discussed: 18:24 Consult Disposition: Admit Departure - Departure Date of Disposition Decision: 01/09/19 Time of Disposition Decision: 18:24 DIAGNOSIS: Abdominal pain, CHF (congestive heart failure), Leukocytosis, Dehydration Disposition: ADMITTED INPATIENT 09 Certified Medical Emergency: Emergent Condition: Fair Referrals and Follow-Ups: Jonathan Mansfield MD [Primary Care Provider] - - Critical Care Note This patient required my direct & personal management of CC.: No Attestation - Physician/ JOSSUE Attestation The physician spent face to face time with patient:: Yes Advanced Practice Provider documentation review:: Supervising physician onsite and consulted in the evaluation and care of this patient. The physician did have a face to face encounter with the patient. This chart was documented by the indicated scribe, (Aimee Soler Scribe) and accurately reflects the services I performed and decisions made by me, Jose Carlos Lopez MD, as attested by the provider's signature.
[2019-01-09] MEDS ORDERED: NS 1,000 ML IV ONE (19:10)
[2019-01-09] MEDS ORDERED: ZOFRAN IV PRN (19:13)
[2019-01-09] MEDS ORDERED: SODIUM CHLORIDE 0.9% INJ SCH (19:15)
[2019-01-09 19:53] LABS: INR 1.12
[2019-01-09] MEDS: PEPCID IV SCH (20:00)
[2019-01-09] MEDS: NS 1,000 ML IV SCH (20:04)
[2019-01-09] MEDS: ZOSYN 2.25 GM in NS 50 ML IV SCH (20:08)
--- NOTE | 2019-01-09 20:29 | Diag Imaging Result Doc PS360 ---
CHEST-PORTABLE - 01/09/2019 INDICATION: sepsis COMPARISON: 11/25/2018 FINDINGS: Stable biventricular pacemaker. Stable calcified granuloma in the right upper lobe. The lungs are clear. Heart size is normal. No pneumothorax or pleural effusion. IMPRESSION: Negative exam. Electronically signed by Austin Mantilla 01/09/2019 8:27 PM
--- NOTE | 2019-01-09 20:53 | HISTORY AND PHYSICAL ---
PRIMARY CARE PHYSICIAN: Dr. Jonathan Mansfield. CHIEF COMPLAINT: Abdominal pain. HISTORY OF PRESENT ILLNESS: Ms. Brown is a 63-year-old female who was discharged from our service a little over a month ago for pancreatitis with possible pancreatic head mass, CKD, congestive heart failure and chronic anemia. She was evaluated for pancreatitis and pancreatic head mass and was actually scheduled to go to [facility] in the near future for EUS and biopsy. She had been followed by infectious disease as well for leukocytosis of unknown origin. The patient is a poor historian, and her daughter, who is an environmental volunteer services coordinator at our facility, is at the bedside to assist with history taking. Over the past 3-4 days, Ms. Brown has become more lethargic, not eating, losing weight, not drinking fluids, and having worsening abdominal pain. She also has had left lower extremity weakness, essentially dragging her left foot, requiring the help of family to get around. This is a new finding for this patient. Her lethargy, confusion and dehydration brought her to the ER today. In the ER she was noted to have a white count of 23,000. Her chemistry was significant for multiple abnormalities, including a calcium of 13, a potassium of 5.5, and a creatinine of 2.7, all of which are significant rises from the last time she was evaluated. Abdomen and pelvis CT was done without contrast in the ER, which did not show anything other than the pancreatic mass, which is known. Ms. Brown is quite dehydrated and confused, and with significant abdominal discomfort. Due to the significant metabolic derangements, worsening abdominal pain, and need for subspecialty services, we are going to transfer her to [facility]. PAST MEDICAL HISTORY: 1. Known pancreatic mass. 2. Chronic kidney disease stage 3-4. 3. Congestive heart failure with an EF of 38% to 40%. 4. History of SVT and atrial fibrillation. 5. Chronic anemia. 6. Protein malnutrition. 7. Leukocytosis of unknown origin. PAST SURGICAL HISTORY: 1. Cholecystectomy. 2. Pacemaker placement. SOCIAL HISTORY: She is a former smoker. She denies current tobacco, alcohol or drug use. FAMILY HISTORY: Noncontributory. REVIEW OF SYSTEMS: Difficult to obtain, but a limited 10-point review of systems was obtained and found to be negative with the exception of the HPI. HOME MEDICATIONS: 1. Methimazole 10 mg daily. 2. Micro-K 8 mEq p.o. daily. 3. Prilosec 40 mg daily. 4. Toprol XL 100 mg daily. 5. Aldactone 25 mg daily. 6. Glucophage 500 mg b.i.d. 7. Digoxin 125 mcg daily. 8. [place] 10 as needed for pain. ALLERGIES: Acetaminophen and oxycodone. Please note she takes [place]. PHYSICAL EXAMINATION: VITAL SIGNS: Blood pressure 114/73, heart rate 127, respiratory rate 19, O2 saturation 98% on room air, temperature 97.9. GENERAL: Obese female lying in a hospital bed in no acute distress. NEUROLOGIC: She is lethargic and disoriented and has good strength in all extremities except the left lower extremity, with weakness at 3/5 to 4/5 versus all other extremities. Random alternating movements are sluggish. HEENT: Head is atraumatic and normocephalic. Pupils are equal, round and reactive to light. Oral mucosa is very dry. NECK: Trachea is midline. There is no JVD. CHEST: Diminished but clear to auscultation. CV: Regular rate and rhythm. S1 and S2 is noted. There are no murmurs. GI: Soft and slightly distended with diffuse tenderness and hypoactive bowel sounds. EXTREMITIES: Trace edema. Pulses 1+. DIAGNOSTIC DATA: Abdomen and pelvis CT shows a pancreatic mass, otherwise nothing acute. WBCs 28.03, hemoglobin 11.2, hematocrit 32.1, platelet count 148. Sodium is 134, potassium 5.5, chloride 92. CO2 is 27, anion gap 15, BUN 51, creatinine 2.7, glucose 148. Calcium 13, phosphorus 2.5. AST 37, ALT 44, alkaline phosphatase 264, lipase 250. UA: 2+ bacteria, 1+ WBCs. ASSESSMENT/PLAN: 1. Acute encephalopathy: Per family, this is a fairly significant change with multiple underlying possible etiologies including hypercalcemia, dehydration, acute kidney injury, leukocytosis, and possible intracranial process. We are going to check a stat head CT given her left lower extremity weakness. Will continue IV fluids for the hypercalcemia and add aggressive IV antibiotics with MRSA coverage, given her recent hospitalization. MRI is contraindicated in this patient due to pacemaker. 2. Sepsis on presentation / Chronic Leukocytosis: The patient has a white count of 28,000 with tachycardia. She is afebrile. We are checking lactic acid and blood cultures now. Will start Zosyn and Zyvox and consult ID, as she has been followed by them recently. Will follow cultures. Per daughter, the patient has not seen a underwriter solicitation director as of yet, it would be prudent to order that consultation, but will defer to [facility] team. 3. Hypercalcemia: The patient is clearly volume depleted, but there is also a significant possibility of hypercalcemia of malignancy. We are checking PTH/PTHrP, phosphorus and will hydrate her. Volume management will be extremely important and much be watched carefully given CHF history. We will recheck her calcium at 2300, if no improvement with fluids alone, will add calcitonin and zoledronic acid, lasix may be needed to assist with fluid management and calcium management. We have consulted Nephrology as her creatinine is worsening. 4. Acute kidney injury on chronic kidney disease: She is clearly dehydrated with hypercalcemia, likely a prerenal process, we have ordered urine studies, SPEP and UPEP to eval for other malignancies. Recent renal US negative. We will continue aggressive fluids and consult Dr. Najera. 5. Diabetes mellitus. Will add pattern sugars and sliding-scale insulin. 6. We have ordered laboratory data for 2300 tonight and will follow up on that appropriately. 7. Deep venous thrombosis prophylaxis with sequential compression devices and thromboembolic deterrent devices. PT IS A FULL CODE. Critical care time with this patient was greater than 1 hour. Dictated by SRAVANTHI Salazar for Joaquín Hernandez MD cc: SRAVANTHI Salazar MD [facility]
[2019-01-09] MEDS: ZYVOX 600 MG/D5W 600 MG/300 ML IVPB IV SCH (21:59)
--- NOTE | 2019-01-09 22:16 | Diag Imaging Result Doc PS360 ---
CT HEAD W/O CONTRAST - 01/09/2019 INDICATION: confusion, LLE weakness COMPARISON: 09/19/2015 FINDINGS: The ventricles and sulci are normal in size and contour. No intracranial mass or hemorrhage. The skull is intact. The sinuses mastoids and middle ears are clear. IMPRESSION: Negative exam. This exam was performed using automated exposure control, adjustment of mA or kV according to patient size, and/or use of iterative reconstruction technique Electronically signed by Austin Mantilla 01/09/2019 10:14 PM
[2019-01-09] MEDS: HUMULIN R SUBQ SCH (22:18)
[2019-01-09] MEDS: DILAUDID IV PRN (22:18)
[2019-01-09 23:02] LABS: UR PROT RANDOM 39.5 mg/dL
--- NOTE | 2019-01-09 23:55 | HISTORY AND PHYSICAL ---
CHIEF COMPLAINT: Abdominal pain. HISTORY OF PRESENT ILLNESS: Patient is a 63-year-old female who presented to the ER with abdominal pain. She has a known history of pancreatic mass for which she has scheduled an appointment in [place] for next week although has not been able to make it. She presented to the hospital noting elevated leukocytosis. She denies any fevers, chills. We will admit her to the hospital, place her on antibiotics. Follow her acute kidney dysfunction. Certainly concerned that this may be due to her recent CT with contrast. Place her on antibiotics and we will follow. cc: Joaquín Hernandez MD
[2019-01-10 00:17] LABS: ALBUMIN 3.4 g/dL (3.5-5.0); CREATININE 2.8 mg/dL (0.5-0.9); POTASSIUM 4.9 mmol/L (3.5-5.1); TOTAL BILIRUBIN 0.45 mg/dL (0.20-1.00); TOTAL PROTEIN 6.7 g/dL (6.3-8.3)
[2019-01-10] MEDS ORDERED: NS 1,000 ML IV ONE (00:19)
[2019-01-10] MEDS ORDERED: AREDIA 90 MG in NS 1,000 ML IV ONE (00:21)
[2019-01-10] MEDS ORDERED: MIACALCIN SUBQ ONE (00:31)
[2019-01-10] MEDS: ZOSYN 2.25 GM in NS 50 ML IV SCH ×2 (02:15→06:16)
[2019-01-10] MEDS: NS 1,000 ML IV SCH (03:23)
[2019-01-10 04:10] LABS: BILIRUBIN URINE NEGATIVE (NEGATIVE); BLOOD URINE NEGATIVE (NEGATIVE); COLOR YELLOW; GLUCOSE URINE NEGATIVE (NEGATIVE); KETONE URINE NEGATIVE (NEGATIVE); LEUKOCYTES URINE NEGATIVE (NEGATIVE); NITRITE URINE NEGATIVE (NEGATIVE); PH URINE 5.5; PROTEIN URINE TRACE mg/dL (NEGATIVE); SP GRAVITY URINE 1.021; TURBIDITY URINE CLEAR (CLEAR); URINE SOURCE CATH; UROBILINOGEN URINE NORMAL (NORMAL)
[2019-01-10 04:12] LABS: UR EPITHELIAL CELLS <10 /HPF (<10); URINE BACTERIA NEGATIVE /HPF; URINE RBC <10 /HPF (<10); URINE WBC <10 /HPF (<10)
[2019-01-10 05:48] LABS: BASO# 0.02 X1000 (0.0-0.2); BASO% 0.1 % (0.0-0.8); EOS# 0.01 X1000 (0.0-0.7); HEMATOCRIT 28.5 % (37.0-47.0); HEMOGLOBIN 9.8 g/dL (12.0-16.0); IMM GRAN# 0.19 X1000 (0.0-0.04); IMM GRAN% 0.8 % (0.0-0.5); LYMPH# 2.29 X1000 (1.2-3.4); LYMPH% 9.5 % (20.5-51.1); MCH 30.8 PG (27-31); MCHC 34.4 g/dL (33-37); MCV 89.6 FL (81-99); MONO# 2.16 X1000 (0.11-0.59); MONO% 8.9 % (1.7-9.3); MPV 10.9 FL (7.4-10.4); NEUT# 19.48 X1000 (1.4-6.5); NEUT% 80.7 % (42.2-75.2); PLT 107 X1000 (130-400); RBC 3.18 XMIL (4.2-5.4); RDW 14.2 % (11.5-14.5); WBC 24.15 X1000 (4.8-10.8)
[2019-01-10 06:10] LABS: ALB/GLOB RATIO 1.2; ALBUMIN 3.4 g/dL (3.5-5.0); CALCIUM 11.1 mg/dL (8.8-10.2); CREATININE 2.3 mg/dL (0.5-0.9); MAGNESIUM 1.6 mg/dL (1.5-2.7); POTASSIUM 4.7 mmol/L (3.5-5.1); TOTAL BILIRUBIN 0.5 mg/dL (0.20-1.00); TOTAL PROTEIN 6.3 g/dL (6.3-8.3)
[2019-01-10] MEDS: PEPCID IV SCH (06:16)
[2019-01-10] MEDS: DILAUDID IV PRN ×2 (06:16→12:02)
[2019-01-10] MEDS: HUMULIN R SUBQ SCH (06:22)
[2019-01-10] MEDS: ZYVOX 600 MG/D5W 600 MG/300 ML IVPB IV SCH (09:01)
[2019-01-10] MEDS: MYCOSTATIN SUSP PO SCH ×2 (09:01→09:03)
[2019-01-10 10:59] VITALS: BP 114/67
--- NOTE | 2019-01-10 12:42 | PROGRESS NOTE ---
DATE: 01/10/2019 SUBJECTIVE: This morning, Ms. Brown refers to be doing fair. She continues to be remarkably confused. The daughter was at the bedside every now and then. She thinks that somebody is looking out for her and she was pointing to things on the wu that never did exist. OBJECTIVE: Vital signs: Currently, her blood pressure is 145/78, pulse is 100, respiration is 21, temperature is 97.1 degrees. The patient was saturating 95% on room air. General: Ms. Brown is a 63-year-old female. She is in bed. She did not seem to be in any cardiopulmonary distress. HEENT: Mucosa is slightly pale. Anicteric. Acyanotic. Neck: Supple. Chest: Good air entry bilaterally. There were no crepitations, no rhonchi. Cardiovascular: Regular rate and rhythm. No murmurs, no rubs, no gallops. Gastrointestinal: Abdomen is soft. Some tenderness in the mid abdomen and some old laparoscopic scars on the anterior abdominal wall. No hepatosplenomegaly. Extremities: No pedal edema. Distal pulses present. Central nervous system: Patient is awake, alert. Follows basic commands. She is oriented to person but disoriented to place and time. LABORATORY DATA: WBC is 24.15, hemoglobin is 9.8, platelet count of 107,000. Chemistry is also reviewed. BUN is down to 51, creatinine is 2.3. AST and ALT are barely normal. TSH is 7.65. Cortisol level is normal. So far, blood cultures are all pending. Urine culture is also pending. IMAGING: A CT scan of the head which was done yesterday shows negative. A chest x-ray was also negative. A CT scan of the abdomen without contrast shows lung bases were clear. There is a pancreatic mass. No bowel inflammation of free air. No fluid collections. ASSESSMENT: 1. Altered mental status on presentation secondary to metabolic encephalopathy, likely from hypercalcemia. 2. Abdominal pain on presentation, likely a combination of hypercalcemia, pancreatic mass and pancreatitis. 3. Mild pancreatitis. Lipase level is up to 250. We are going to continue with adequate fluid resuscitation and pain management. 4. Pancreatic mass with normal CA-19. There is a concern that the pancreatic mass could be could be malignant. Unfortunately we are not able to do an EUS here, and it appears that the patient was supposed to follow up with [facility]. However, a recent letter from [facility] endoscopy unit states that they have been trying to reach out to Ms. Brown for over a month, unfortunately they have been unsuccessful. 5. Severe hypercalcemia (malignant hypercalcemia). The patient received pamidronate yesterday and calcitonin. We will continue with IV fluids and continue monitoring the calcium level. 6. History of nonischemic dilated cardiomyopathy. The patient is currently not in exacerbation. 7. History of cardiac arrhythmia with cardiac arrest in the past. She is currently status post AICD and the pacemaker. 8. Undefined thyroid disorders. We will recheck on the thyroid function with TSH and free T4 and have a better understanding of her thyroid status. 9. Acute kidney injury. We will continue with fluid resuscitation. 10. Normocytic anemia, likely due to underlying chronic illness. We will continue following hemoglobin and hematocrit. PLAN: In general, Ms. Brown continues to be confused, which we think is all related to hypercalcemia. The calcium level is coming down with initial management. We are going to continue with the fluid resuscitation. She is going to continue with the fluid resuscitation. We have just reached out to [facility] for ICU admission so GI will be able to evaluate for an EUS and possibly a biopsy. I have spoken to Dr. Angel Jay who is the ICU faculty and has accepted Ms Brown for transfer. Will be waiting on the bed arrangements and get Ms. Brown there later on today. cc: Jesse Skyes MD [facility]
--- NOTE | 2019-01-10 12:54 | NEPHROLOGY CONSULTATION ---
DATE: 01/10/2019 REASON FOR CONSULTATION: Acute kidney injury and hypercalcemia. HISTORY OF PRESENT ILLNESS: Ms. Brown is a 63-year-old woman. She was admitted to the hospital on 01/09/2019, yesterday, because of abdominal pain. She has been in the hospital within the last 2 months with abdominal pain and was diagnosed with a mass in the head of the pancreas consistent with possible malignancy. I do not see any evidence of workup by Oncology and notes suggest that she was planning to go to [place] for biopsy. She has undergone repeated abdominal imaging including a CT abdomen with contrast on 12/18/2018. Two days prior to that, her creatinine was 1.2. Again, she was readmitted yesterday with ongoing abdominal pain. She is really not able to give me any further history. She is focused on getting pain medicine from the nurse. When I ask specific questions, she said, "you will have to ask my daughter." She does have lower extremity weakness. No other constitutional symptoms are listed. No bone pain. PAST MEDICAL HISTORY: As above. She also has a history of congestive heart failure, atrial fibrillation, and malnutrition. HOME MEDICATIONS: Include 1. Methimazole. 2. Potassium. 3. Prilosec. 4. Metoprolol. 5. Aldactone. 6. Glucophage. 7. Digoxin. 8. [place]. ALLERGIES: Oxycodone. SOCIAL HISTORY: Former smoker. None currently. FAMILY HISTORY: Noncontributory. REVIEW OF SYSTEMS: Noncontributory. PHYSICAL EXAMINATION: Vital Signs: Blood pressure 139/83, heart rate 102, respirations 16. Afebrile. Generally: She is an elderly woman who appears older than stated age. Obvious weight loss. Skin: Warm and dry. Conjunctivae are pink. Oropharynx is moist. Tongue normal. Dentition normal. Neck: Supple. Trachea is midline. Neck veins are not appreciated. Heart: PMI nondisplaced. Regular rate and rhythm with S4. Lungs: Have equal breath sounds. No crackles or wheezes. Abdomen: Soft, but moderately tender. No guarding. Decreased bowel sounds. No palpable organomegaly or masses. Extremities: Have no edema, clubbing, or cyanosis. IMPRESSION: 1. Acute kidney injury. Again, normal baseline renal function. She did have CT with contrast two weeks ago but acute tubular necrosis related to contrast seems unlikely 2 weeks later. More likely, high BUN creatinine ratio secondary to intravascular volume depletion associated with hypercalcemia. No hydronephrosis on her CT abdomen. Urine sodium was low with low FENA and bland urine overall. This supports prerenal azotemia as the most likely diagnosis. 2. Hypercalcemia, improving with IV fluids. This is a new development in her illness. She is not taking any medications that are particularly associated with hypercalcemia. PTH is suppressed. We will check PTH RP, cortisol, TSH, etc. When she is medically ready, then we will survey for bone lesions. Alkaline phosphatase is abnormal. We will fractionate. cc: Gordon Najera MD
--- NOTE | 2019-01-10 14:39 | INFECTIOUS DISEASE CONSULT REP ---
DATE: 01/10/2019 CONCLUSION: The patient is admitted to the hospital with abdominal pain and altered mental status. I think it is possible it is due to pancreatitis. The patient does have a white coating on her tongue suggestive of oral candidiasis. RECOMMENDATIONS: I agree with treating the patient with Zyvox and Zosyn pending culture results. I have started the patient on Mycostatin swish and swallow. DISCUSSION: The patient is unable to provide a history and no family members present. The information I obtained was from the computer. The patient as mentioned above was admitted with abdominal pain. The patient became more lethargic. She stopped eating. She was losing weight and her abdominal pain was worsening. The patient also had left lower extremity weakness. She was lethargic and confused and dehydrated. Studies thus far show initially the patient came in with a white blood cell count of 28,000 and today her white count is 24,150, hemoglobin is 9.8, and platelet count is a 107,000. Creatinine is 2.3. GFR is 26. Alkaline phosphatase is 214. Urinalysis today was negative for white blood cells and bacteria. Blood and urine cultures are pending. CT scan of the head showed no abnormalities. Chest x-ray showed a stable right upper lobe calcified granuloma and CT scan showed a stable pancreatic mass. The patient's amylase was 250. PAST MEDICAL HISTORY: Positive for pancreatic mass, chronic kidney disease, congestive heart failure, diabetes mellitus, a cardiac condition that required having a pacemaker put in, chronic anemia, history of supraventricular tachycardia and atrial fibrillation, and leukocytosis. PAST SURGICAL HISTORY: Positive for cholecystectomy and pacemaker placement. SOCIAL HISTORY: The patient is a former smoker. She does not drink alcoholic beverages or abuse drugs. FAMILY HISTORY: Said to be noncontributory. REVIEW OF SYSTEMS: Unable to be obtained HOME MEDICATIONS: Include methimazole, potassium, Prilosec, Toprol, Aldactone, Glucophage, digoxin and [place]. ALLERGIES: Patient's allergies are to acetaminophen and oxycodone, but she does take [place]. PHYSICAL EXAMINATION: Vital Signs: Temperature is 97.8 degrees, pulse 102, respirations 16, blood pressure 139/83. The patient's weight is 191 pounds. The patient is 5 feet 6 inches tall. General: This is a chronically ill-appearing, middle-aged female. She appears to be in no acute distress currently. Head, eyes, ears, nose and throat: She can hear my spoken words and see near objects. She does seem to have a white coating on her tongue suggestive of oral candidiasis. Neck: There is no meningismus. Lungs: Clear to auscultation. Cardiovascular: Heart rate is regular. Thorax: Patient has a pacemaker present on the left side. The site is not swollen or tender. Abdomen: Was soft. Bowel sounds were present, but it was tender. Neurologic: Patient is lethargic. I was able to arouse her from her lethargy a little bit, but when I asked her questions she would start talking, but I could not understand what she was saying, and soon after she started talking she closed her eyes and apparently went to sleep. The patient, however, to my request did move both arms and both legs. Integument: No rash noted. Thank you for the consult. cc: Ever Nuñez MD
--- NOTE | 2019-01-10 16:01 | GASTROENTEROLOGY CONSULTATION ---
DATE: 01/10/2019 REASON FOR CONSULTATION: pancreatic mass, abdominal pain HISTORY OF PRESENT ILLNESS: Ms. Nadya Brown is a 63 year old woman with PMH of HTN, HLD, ICM with EF of 35-40% s/p ICD, CAD, NIDDM2, CKD, chronic anemia who was recently admitted in 11/2018 with pancreatitis found to have pancreatic head mass who represented to [facility] with worsening abdominal pain, weight loss, poor appetite, lethargy and confusion. History obtained from chart as patient is confused. Per report, patient has been having worsening decline over the last 3-4 days. She was supposed to be seen at [facility] for EUS and biopsy; however, [facility] has been unable to reach Ms. Brown to schedule. She also has had left lower extremity weakness, essentially dragging her left foot, requiring the help of family to get around. In the ER she was noted to have a white count of 23,000, hypercalcemia of 13, a potassium of 5.5, and a creatinine of 2.7. Abdomen and pelvis CT was done without contrast in the ER, which did not show anything other than the pancreatic mass, which is known. She was transferred to [facility] for higher level of care. ROS: as per HPI; limited given AMS PAST MEDICAL HISTORY: 1. Diabetes mellitus type 2. 2. Hypertension. 3. Hyperlipidemia. 4. Hyperthyroidism. 5. History of ischemic cardiomyopathy with severely reduced systolic function. Her most recent echocardiogram in March of 2018 did show an ejection fraction of 35% to 40%. 6. History of cardiac arrest in September of 2015. The patient has since had a defibrillator placed. 7. Recent diagnosis of superficial gastric ulcer 8. Hiatal hernia 9. Diverticulosis 10. Hemorrhoids 11. Pancreatic mass 12. History of pancreatitis 11/2018 13. CKD 14. Chronic leukocytosis PAST SURGICAL HISTORY: 1. Cholecystectomy. 2. Defibrillator placement. SOCIAL HISTORY: The patient is a former smoker. She did smoke greater than a pack a day for 30- 40 years. There is known alcohol or illicit drug use. FAMILY HISTORY: Positive for her mother having a history of kidney failure. She states her father did not have any known medical problems. No FHx of GI malignancies including pancreatic ALLERGIES: The patient has no known drug allergies. HOME MEDICATIONS: 1. Methimazole 10 mg daily. 2. Micro-K 8 mEq p.o. daily. 3. Prilosec 40 mg daily. 4. Toprol XL 100 mg daily. 5. Aldactone 25 mg daily. 6. Glucophage 500 mg b.i.d. 7. Digoxin 125 mcg daily. 8. [place] 10 as needed for pain. PHYSICAL EXAM T 97.1 HR 99 BP 114/67 O2 sat 96% RA GEN: awake, alert, NAD, confused HEENT: anicteric, MMM, EOMI NECK: supple, no jvd PULM: CTAB, no wheezing CV: RRR, no murmurs ABD: obese, soft, ND, moderate TTP in upper abdomen, no ascites, voluntary guarding EXT: no cce NEURO: nonfocal, AAO x self only LABS: Na 134 K 4.8 Cl 95 BUN 54 K 4.8 CL 27 Cr 2.8 glu 195 WBC 28 Hgb 11.2 plts 148K lactate 2.1 lipase 250 albumin 3.4 AST 32 ALT [address] ABDOMEN W/O CONTRAST - 01/09/2019 INDICATION: UPPER ABD PAIN,PNC MASS,WBC=28K COMPARISON: 12/18/2018 FINDINGS: Evaluation is extremely limited due to lack of intravenous contrast. The lung bases are clear and the heart size is normal. There is a pancreatic mass. No bowel inflammation or free air. No fluid collections. IMPRESSION: No change from prior. CT HEAD W/O CONTRAST - 01/09/2019 INDICATION: confusion, LLE weakness COMPARISON: 09/19/2015 FINDINGS: The ventricles and sulci are normal in size and contour. No intracranial mass or hemorrhage. The skull is intact. The sinuses mastoids and middle ears are clear. IMPRESSION: Negative exam. A/P: Ms. Nadya Brown is a 63 year old woman with PMH of HTN, HLD, ICM with EF of 35-40% s/p ICD, CAD, NIDDM2, CKD, chronic anemia who was recently admitted in 11/2018 with pancreatitis found to have pancreatic head mass who represented to [facility] with worsening abdominal pain, weight loss, poor appetite, lethargy and confusion. Found to have worsening leukocytosis, hypercalcemia, acute on chronic kidney injury, hyperkalemia. Exam notable for abdominal tenderness, lethargy, and confusion without focal deficits. She has been resuscitated for volume depletion with improvement in metabolic profile, but continues to be confused. #AMS: metabolic; likely multifactorial; continue fluid resuscitation to correct metabolic derangements #Leukocytosis: on empiric antibiotics; cultures pending #RADHA on CKD: Cr 2.8; nephrology consulted; IVFs as above #Pancreatic mass: recommend transfer to [facility] for expedited GI workup including EUS #Hypercalcemia: IVFs as above; workup as per renal and primary team #DM2: SSI #CHF: stable #Anemia: stable; no overt bleeding Thank you for this consult [facility]
--- NOTE | 2019-01-11 08:37 | DISCHARGE SUMMARY ---
ADMISSION DATE: 01/09/2019 DISCHARGE DATE: 01/10/2019 DISPOSITION: [facility] MICU. ACCEPTING PHYSICIAN: Dr. Angel Jay. CONSULTATION DURING THIS ADMISSION: GI was consulted. Patient was seen by Dr. Pack. INVASIVE PROCEDURES DONE THIS ADMISSION: None. IMAGING STUDIES OF SIGNIFICANCE: 1. A CT scan of the abdomen without contrast showed a pancreatic mass. No bowel inflammation or free air. 2. A chest x-ray was negative. 3. A CT scan of the head without contrast was negative. ADMISSION DIAGNOSES: 1. Acute encephalopathy. 2. Sepsis on presentation. 3. Hypercalcemia. 4. Acute kidney injury. 5. Diabetes mellitus. DIAGNOSES AT THE TIME OF DISCHARGE: 1. Acute encephalopathy secondary to hypercalcemia. 2. Abdominal pain on presentation secondary to mild pancreatitis and hypercalcemia. 3. Pancreatic mass with normal CA-19. The patient needs a tissue diagnosis. 4. Malignant hypercalcemia. 5. History of nonischemic dilated cardiomyopathy, clinically euvolemic. 6. History of cardiac arrhythmia status post cardiac arrest in the past. The patient is currently with AICD and pacemaker. 7. Acute kidney injury. 8. Normocytic anemia. 9. Undefined thyroid disorders. PRESENTING COMPLAINT: Abdominal pain. HISTORY OF PRESENTING COMPLAINT: Ms Brown is a 63-year-old female who is known to have recurrent pancreatitis and a pancreatic head mass. The patient was seen in [facility] almost 2 months ago and was supposed to follow up with an outpatient followup at [facility]. However, it appears she did not follow up. Presented to the emergency department, was evaluated, found to be extremely hypercalcemic, very dry, was altered, was subsequently transferred from [place] to [facility] for higher level of care. HOSPITAL COURSE: Ms Brown was admitted to the ICU, adequately fluid resuscitated, was given bisphosphonate and calcitonin for the hypercalcemia, which seems to be improving. She was seen by both Nephrology and GI. GI recommended to get in touch with [facility] to see if they can go ahead with an EUS for expedited diagnosis of the pancreatic mass. I was able to reach out to the [facility] Mist line and spoke directly with Dr. Angel Jay, who is the ICU attending and he accepted the patient for transfer for higher level of care. Ms. Brown is subsequently transferred to [facility]. Family members have been notified. TIME SPENT FOR DISCHARGE: 37 minutes. cc: Jesse Sykes MD [facility]
== END 2019-01-10 12:02 | disposition short-term general hospital (02) | DRG 640 ==
LOC: P.ED 14:20 → SUATTDRO 19:04 → 4N 19:04 → ICU 01-10 03:18
PROVIDERS: ATTEND Internal Medicine
CPT/HCPCS: 51701; 70450; 71010; 71045; 74150; 80053; 80162; 81001; 81050; 82150; 82397; 82533; 82570; 82948; 83605; 83690; 83735; 83970; 84075; 84080; 84100; 84155; 84156; 84165; 84166; 84300; 84443; 85025; 85610; 87040; 87088; 87205; 93005; 96361; 96365; 96375; 99285; A9270; J0630; J1170; J2020; J2405; J2430; J2543; J7030; J7040; P9612; S0028; XXXXX

== ENCOUNTER 2019-01-27 17:40 | Inpatient (IN) ==
[2019-01-27 18:23] LABS: BASO# 0.05 X1000 (0.0-0.2); BASO% 0.3 % (0.0-0.8); EOS# 0.03 X1000 (0.0-0.7); EOS% 0.2 % (0.0-10.0); HEMATOCRIT 25.5 % (37.0-47.0); HEMOGLOBIN 8.4 g/dL (12.0-16.0); IMM GRAN# 0.06 X1000 (0.0-0.04); IMM GRAN% 0.3 % (0.0-0.5); LYMPH# 2.07 X1000 (1.2-3.4); LYMPH% 10.5 % (20.5-51.1); MCH 30.7 PG (27-31); MCHC 32.9 g/dL (33-37); MCV 93.1 FL (81-99); MONO# 1.42 X1000 (0.11-0.59); MONO% 7.2 % (1.7-9.3); MPV 9.5 FL (7.4-10.4); NEUT# 16.01 X1000 (1.4-6.5); NEUT% 81.5 % (42.2-75.2); PLT 198 X1000 (130-400); RBC 2.74 XMIL (4.2-5.4); RDW 16.4 % (11.5-14.5); WBC 19.64 X1000 (4.8-10.8)
[2019-01-27 18:44] LABS: AGAP 13; ALB/GLOB RATIO 0.7; ALBUMIN 2.5 g/dL (3.5-5.0); ALKALINE PHOSPHATASE 508 U/L (32-104); BUN 6 mg/dL (8-22); CALCIUM 7.3 mg/dL (8.8-10.2); CHLORIDE 109 mmol/L (98-107); COSMO 282; CREATININE 0.6 mg/dL (0.5-0.9); ESTIMATED GFR > 60; GLUCOSE 129 mg/dL (70-104); POTASSIUM 3.2 mmol/L (3.5-5.1); SODIUM 142 mmol/L (136-145); TCO2 20 mmol/L (25-35); TOTAL BILIRUBIN 0.38 mg/dL (0.20-1.00); TOTAL PROTEIN 5.9 g/dL (6.3-8.3)
[2019-01-27 18:45] LABS: AMYLASE 50 U/L (20-200); GOT 18 U/L (10-30); GPT 9 U/L (10-36); LIPASE 52 U/L (13-60)
[2019-01-27] MEDS ORDERED: NORCO-10 PO ONE (21:59)
[2019-01-27 22:57] LABS: URINE SOURCE CLEAN CATCH
[2019-01-27 23:32] LABS: BILIRUBIN URINE NEGATIVE (NEGATIVE); BLOOD URINE NEGATIVE (NEGATIVE); COLOR YELLOW; GLUCOSE URINE NEGATIVE (NEGATIVE); KETONE URINE TRACE mg/dL (NEGATIVE); LEUKOCYTES URINE NEGATIVE (NEGATIVE); NITRITE URINE NEGATIVE (NEGATIVE); PH URINE 5.5; PROTEIN URINE 30 mg/dL (NEGATIVE); SP GRAVITY URINE 1.018; TURBIDITY URINE CLEAR (CLEAR); UROBILINOGEN URINE NORMAL (NORMAL)
[2019-01-27 23:34] LABS: UR EPITHELIAL CELLS <10 /HPF (<10); URINE BACTERIA NEGATIVE /HPF; URINE RBC <10 /HPF (<10); URINE WBC <10 /HPF (<10)
--- NOTE | 2019-01-28 02:03 | PROVIDER DOCUMENTATION ---
This chart was entered by Kamilah Mondragon Scribe, acting as scribe for Mikel Haley MD. HPI-Abdominal Pain/GI Problem - General Chief Complaint: Abdominal Pain Stated Complaint: ABD PAIN,SORE THROAT Time Seen by Provider: 01/27/19 21:51 Source: patient Allergies/Adverse Reactions: Patient Allergies Allergy/AdvReac Type Severity Reaction Status Date / Time acetaminophen [From Percocet] Allergy HIVES Verified 11/20/18 05:03 oxycodone [From Percocet] Allergy HIVES Verified 11/20/18 05:03 Home Medications: Home Medication List Medication Instructions Recorded Confirmed Last Taken Type Metformin [Glucophage] 500 mg PO BID CC #60 tablet 08/14/15 01/09/19 11/19/18 Rx Spironolactone [Aldactone] 25 mg PO DAILY #30 tablet 08/14/15 01/09/19 11/19/18 Rx Metoprolol Succinate E.r. [Toprol 100 mg PO DAILY 09/20/15 01/09/19 11/19/18 History Xl] Potassium Chloride E.r. [Micro-K] 1 cap PO DAILY 08/12/18 01/09/19 11/19/18 History 10 Methimazole 10 mg PO DAILY 11/20/18 01/09/19 11/19/18 History Omeprazole [Prilosec] 40 mg PO DAILY 11/20/18 01/09/19 11/19/18 History Amoxicillin/Potassium Clav 1 ea PO Q12H #14 tab 11/28/18 01/09/19 Unknown Rx [Augmentin 875-125 Tablet] Ciprofloxacin HCl [Cipro] 500 mg PO Q12H #14 tab 11/28/18 01/09/19 Unknown Rx Digoxin [Lanoxin] 125 microgm PO DAILY #90 tab 11/29/18 01/09/19 Unknown Rx Hydrocodone/APAP 10 mg/325 mg 1 ea PO Q4H PRN PRN #30 tab 11/29/18 01/09/19 Unknown Rx [[place]-10] Ondansetron HCl [Zofran] 4 mg PO PRN PRN #10 tab 11/29/18 01/09/19 Unknown Rx Polyethylene Glycol 3350 [Miralax] 17 gm PO BID #60 powder, packet 11/29/18 01/09/19 Unknown Rx - History of Present Illness-ABD Nature of Presenting Problems: 63 yof presents to er w/family at bedside w/cc gen abd pain and sore throat x 3days. pt sts her grandson has been sick. pt has hx of pancreatic cancer and ran out of [employer] 10 this am. pt has had 3 bm's this am. pt denies dysuria and nvd. Review of Systems - Adult - REVIEW OF SYSTEMS - ADULT Constitutional: reports: no symptoms reported. denies: chills, fever, fatique Eyes: reports: no symptoms reported Ears, Nose, Mouth & Throat: reports: see HPI, throat pain. denies: ear pain, sinus problem Cardiovascular: reports: no symptoms reported. denies: chest pain, palpitations, syncope Respiratory: reports: no symptoms reported. denies: cough, shortness of breath, wheezing Gastrointestinal: reports: see HPI, abdominal pain. denies: diarrhea, nausea, vomiting Genitourinary: reports: no symptoms reported. denies: dysuria, discharge, frequency Musculoskeletal: reports: no symptoms reported Integumentary: reports: no symptoms reported Neurological: reports: no symptoms reported Psychiatric: reports: no symptoms reported Endocrine: reports: no symptoms reported Hematologic/Lymphatic: reports: no symptoms reported Allergic/Immunologic: reports: no symptoms reported All Other Systems: Reviewed and Negative Past History - Adult - PAST MEDICAL HISTORY-ADULT Review of Records: reports: Old Records Reviewed, Nursing Assessment Review, Medications Reviewed, Social history reviewed & non-contributory. Major Childhood Illnesses: reports: denies history Cardiovascular: reports: HTN, hyperlipidemia Respiratory: reports: denies history Gastrointestinal: reports: cancer (pancreatic), GERD Obstetrical/Gynecological: reports: denies history Genitourinary: reports: denies history Musculoskeletal: reports: denies history Neurological: reports: denies history Endocrine/Immune: reports: Diabetes Other Conditions: reports: denies history - PRIOR SURGERIES/PROCEDURES Surgical/Procedure History: reports: cholecystectomy - IMMUNIZATION STATUS Childhood Immunizations: See Nurse Assessment Flu Vaccine: See Nurse Assessment - FAMILY HISTORY Family History: reviewed, not pertinent - SOCIAL HISTORY Smoking: non-smoker Substance Use: none/never Physical Exam-General - PHYSICAL EXAM-ADULT Initial Vital Signs Reviewed: Yes - CONSTITUTIONAL General Appearance: appears well, alert, no apparent distress. negative: cachetic, lethargic, obtunded - EYES Eyes: PERRL/EOMI, pink conjunctivae - HEAD, EARS, NOSE, MOUTH & THROAT HENMT: normocephalic/atraumatic, TMs normal, pharynx normal, other (mandible ten haley to palp). negative: moist mucous membranes (dry mm), normal ENT inspection, pharyngeal erythema, tonsillar exudate, frontal tenderness, maxillary tenderness - NECK Neck: non-tender, full range of motion, supple, normal inspection - RESPIRATORY Respiratory: chest non-tender, lungs clear, normal breath sounds - CARDIOVASCULAR Cardiovascular: normal peripheral pulses, regular rate, rhythm, no edema, no gallop, no JVD, no murmur - GASTROINTESTINAL (ABDOMEN) Abdominal Exam: normal bowel sounds, soft, no organomegaly, no pulsatile mass, tenderness (gen abd ten). negative: non tender, guarding, rigid, rebound - LYMPHATIC Lymphatic: no adenopathy - MUSCULOSKELETAL Back Exam: normal inspection, no CVA tenderness, no vertebral tenderness Extremity: normal range of motion, non-tender, normal inspection Peripheral Pulses: radial (R): 2+, radial (L): 2+ - SKIN Integumentary: normal color, normal turgor, warm/dry - NEUROLOGIC Neurologic: grossly normal, no motor/sensory deficits - PSYCHIATRIC Psych/Mental Status: normal mood/affect, normal thought content, normal thought process, oriented x 3 Progress - PLAN OF CARE/RESULTS Progress/Plan/Lab Results: Vital Signs - 8 hr 01/27/19 17:58 Temperature 97.5 F L Pulse Rate 108 H Respiratory Rate 18 Blood Pressure 124/80 O2 Sat by Pulse Oximetry 100 Laboratory Results - last 24 hr 01/27/19 01/27/19 18:05 18:05 WBC 19.64 H RBC 2.74 L Hgb 8.4 L Hct 25.5 L MCV 93.1 MCH 30.7 MCHC 32.9 L RDW Std Deviation 16.4 H Plt Count 198 MPV 9.5 Immature Gran % (Auto) 0.3 Neut % (Auto) 81.5 H Lymph % (Auto) 10.5 L [place] % (Auto) 7.2 Eos % (Auto) 0.2 Baso % (Auto) 0.3 Immature Gran # (Auto) 0.06 H Neut # (Auto) 16.01 H Lymph # (Auto) 2.07 [place] # (Auto) 1.42 H Eos # (Auto) 0.03 Baso # (Auto) 0.05 Sodium 142 Potassium 3.2 L Chloride 109 H Carbon Dioxide 20 L Anion Gap 13 BUN 6 L Creatinine 0.6 Estimated GFR/1.73 m2 > 60 BUN/Creatinine Ratio 10 Glucose 129 H Calculated Osmolality 282 Calcium 7.3 L Total Bilirubin 0.38 AST 18 ALT 9 L Alkaline Phosphatase 508 H Total Protein 5.9 L Albumin 2.5 L Globulin 3.4 Albumin/Globulin Ratio 0.7 Amylase 50 Lipase 52 Orders Category Date Time Status Saline Loc DIRECTED Care 01/27/19 18:02 Active NPO Diet 01/27/19 18:[address] ABD/PELVIS W/IV CONT ONLY [CT] Stat Exams 01/27/19 21:52 Ordered AMYLASE [CHEM] Stat Lab 01/27/19 18:05 Completed CBC WITH ELECTRONIC DIFF [HEME] Stat Lab 01/27/19 18:05 Completed COMPREHENSIVE METABOLIC PANEL [CHEM] Stat Lab 01/27/19 18:05 Completed DIRECT STREP Stat Lab 01/27/19 21:59 Ordered LIPASE [CHEM] Stat Lab 01/27/19 18:05 Completed URINALYSIS W/POSS RFLX CULT [URINALYSIS] Stat Lab 01/27/19 18:02 Uncollected Hydrocodone/APAP 10 mg/325 mg [[place]-10] Med 01/27/19 21:59 Discontinued 1 each PO NOW ONE Pt discussed with [facility] transfer center who noted they have no beds. Result Diagrams: 01/27/19 18:05 01/27/19 18:05 - CONSULTS/PCP/HOSPITALIST Notification #1 *Consult/PCP/Hospitalist*: Dr. Campbell Time Discussed: 01:58 Reason/Comments: Dr. Campbell will admit pt Consult Disposition: Will see in ED, Admit Departure - Departure Date of Disposition Decision: 01/28/19 Time of Disposition Decision: 02:02 DIAGNOSIS: Pancreatic mass, Leukocytosis, Pancreatitis Disposition: ADMITTED INPATIENT 09 Certified Medical Emergency: Emergent Condition: Fair Referrals and Follow-Ups: Jonathan Mansfield MD [Primary Care Provider] - - Critical Care Note This patient required my direct & personal management of CC.: No Attestation - Physician/ JOSSUE Attestation Patient care was provided by Advanced Practice Provider:: No The physician spent face to face time with patient:: Yes Advanced Practice Provider documentation review:: Supervising physician onsite and consulted in the evaluation and care of this patient. The physician did have a face to face encounter with the patient. This chart was documented by the indicated scribe, (Kamilah Mondragon Scribe) and accurately reflects the services I performed and decisions made by me, Mikel Haley MD, as attested by the provider's signature.
[2019-01-28] MEDS ORDERED: XYLOCAINE 2% VISCOUS MT ONE (02:17)
[2019-01-28] MEDS ORDERED: MORPHINE IV ONE (02:18)
[2019-01-28] MEDS ORDERED: ZOFRAN IV PRN (03:44)
[2019-01-28] MEDS ORDERED: PROTONIX IV SCH (03:45)
[2019-01-28] MEDS ORDERED: ZOSYN 3.375 GM in NS 50 ML IV SCH (03:45)
[2019-01-28] MEDS ORDERED: SODIUM CHLORIDE 0.9% INJ SCH (03:45)
[2019-01-28] MEDS ORDERED: DILAUDID IV PRN (03:48)
[2019-01-28] MEDS ORDERED: TYLENOL PO PRN (04:38)
[2019-01-28] MEDS ORDERED: XYLOCAINE 2% VISCOUS MT PRN (04:38)
[2019-01-28] MEDS ORDERED: SODIUM CHLORIDE 0.9% INJ ONE (04:38)
[2019-01-28] MEDS: NS 1,000 ML IV SCH ×2 (05:11→17:23)
[2019-01-28] MEDS: PEPCID IV SCH ×2 (05:11→17:16)
[2019-01-28] MEDS: MORPHINE IV PRN ×2 (05:16→07:41)
[2019-01-28 05:32] LABS: BASO# 0.04 X1000 (0.0-0.2); BASO% 0.2 % (0.0-0.8); EOS# 0.04 X1000 (0.0-0.7); EOS% 0.2 % (0.0-10.0); HEMATOCRIT 25.5 % (37.0-47.0); HEMOGLOBIN 8.4 g/dL (12.0-16.0); IMM GRAN# 0.07 X1000 (0.0-0.04); IMM GRAN% 0.4 % (0.0-0.5); LYMPH% 18.2 % (20.5-51.1); MCH 30.9 PG (27-31); MCHC 32.9 g/dL (33-37); MCV 93.8 FL (81-99); MONO# 1.79 X1000 (0.11-0.59); MONO% 9.6 % (1.7-9.3); MPV 9.8 FL (7.4-10.4); NEUT# 13.36 X1000 (1.4-6.5); NEUT% 71.4 % (42.2-75.2); PLT 186 X1000 (130-400); RBC 2.72 XMIL (4.2-5.4); RDW 16.6 % (11.5-14.5)
[2019-01-28 05:33] LABS: INR 1.73; PROTIME 21.5 Seconds (11.0-16.0)
[2019-01-28 05:48] LABS: AGAP 12; ALB/GLOB RATIO 0.9; ALBUMIN 2.8 g/dL (3.5-5.0); ALKALINE PHOSPHATASE 527 U/L (32-104); BUN 7 mg/dL (8-22); CALCIUM 7.3 mg/dL (8.8-10.2); CHLORIDE 108 mmol/L (98-107); COSMO 284; CREATININE 0.6 mg/dL (0.5-0.9); ESTIMATED GFR > 60; GLUCOSE 121 mg/dL (70-104); GOT 17 U/L (10-30); GPT 10 U/L (10-36); MAGNESIUM 1.5 mg/dL (1.5-2.7); SODIUM 143 mmol/L (136-145); TCO2 23 mmol/L (25-35); TOTAL BILIRUBIN 0.38 mg/dL (0.20-1.00)
[2019-01-28 06:03] LABS: DIGOXIN 0.7 ng/mL (0.9-2.0)
[2019-01-28] MEDS ORDERED: POTASSIUM CHLORIDE 60 MEQ in NS 500 ML IV ONE (07:38)
[2019-01-28] MEDS ORDERED: MAGNESIUM SULFATE 1 GM/D5W 1 GM/100 ML IVPB IV ONE (07:42)
--- NOTE | 2019-01-28 08:24 | Diag Imaging Result Doc PS360 ---
EXAM: CT ABDOMEN/PELVIS W/O CONTRAST 01/28/2019 HISTORY: abdo pain TECHNIQUE: This exam was performed using automated exposure control, adjustment of mA or kV according to patient size, and/or use of iterative reconstruction technique. COMMENT: The current examination is compared with the previous study of 01/09/2019. There is a ill-defined opacity in the lateral portion of the right middle lobe which has not changed significantly since the previous study and may be due to fibrosis. There is a calcified granuloma in the inferior portion of the lingula. There is a large hiatal hernia. The spleen is not enlarged. The adrenal glands are not enlarged. There has been cholecystectomy. The liver is stable in appearance compared to the previous study. There is a masslike lesion in the area of the head of the pancreas with obscuration of the fat plane between the duodenum and the pancreatic head and a collection of gas bubbles seen best on images 53 through 57. The latter finding was not as prominent on the previous examination. This may represent an abscess. It measures at least 2.4 cm in diameter. The adrenal glands are not enlarged. There is right nephrolithiasis with a stone in the upper pole measuring over 8 mm. The appendix is unremarkable. The aorta is not distended. There are some enlarged mesenteric nodes particularly in the mid mesentery near the pancreatic head. One node seen on image 49 measures in excess of 13 mm. This was not appreciable on the previous study. There is no evidence of bowel obstruction or appendicitis. There is a tiny amount of free fluid in the cul-de-sac. There is gas in the urinary bladder, this may be due to recent instrumentation. Clinical correlation in this regard is recommended. There are degenerative disc and facet changes in the lumbar spine. No acute bony abnormalities are demonstrated. IMPRESSION: Mass in the head of the pancreas with possible abscess. The possibility of focal pancreatitis and/or neoplasm cannot be excluded. Electronically signed by Jin Balderas 01/28/2019 8:21 AM
[2019-01-28] MEDS: DILAUDID IV PRN ×4 (10:17→20:13)
--- NOTE | 2019-01-28 10:37 | Diag Imaging Result Doc PS360 ---
CHEST-PORTABLE - 01/28/2019 INDICATION: SOB,Non-Productive Cough COMPARISON: 01/09/2019 FINDINGS: Stable biventricular pacemaker on the left side. Stable calcified granuloma in the right upper lobe. The lungs are clear. Heart size is normal. No pneumothorax or pleural effusion. IMPRESSION: Negative exam. Electronically signed by Austin Mantilla 01/28/2019 10:35 AM
[2019-01-28] MEDS: MYCOSTATIN SUSP PO SCH ×4 (11:22→20:12)
[2019-01-28] MEDS: ZOSYN 3.375 GM in NS 50 ML IV SCH ×3 (11:23→20:18)
--- NOTE | 2019-01-28 11:46 | GENERAL SURGERY CONSULTATION ---
DATE: 01/28/2019 REQUESTING PHYSICIAN: Hospitalist. REASON FOR CONSULTATION: Consult is concerning pancreatic cancer. HISTORY OF PRESENT ILLNESS: A 63-year-old female with a known pancreatic mass who has been admitted to the hospital several times, is now presenting with abdominal pain. She had been scheduled and had actually gone to [facility] for endoscopic ultrasound and biopsy which pathology per the family shows pancreatic cancer but the nuances are unknown. She has had persistent abdominal pain and came to the emergency department because of that. This has been going on for 3 days. She had a repeat CT scan that really showed no significant change, but official report is still pending. I was asked to weigh an opinion. Patient is feeling better at this point as far as pain. PAST MEDICAL HISTORY: Includes: 1. Known pancreatic mass with cancer. 2. Chronic kidney disease stage 3 to 4. 3. CHF with an EF of 38 to 40 percent. 4. History of SVT with atrial fibrillation. 5. Chronic anemia. 6. Protein malnutrition. 7. Leukocytosis of unknown origin. PAST SURGICAL HISTORY: Includes cholecystectomy and pacemaker placement. SOCIAL HISTORY: Former smoker. FAMILY HISTORY: Reviewed with patient and noncontributory. HOME MEDICATIONS: Reviewed. ALLERGIES: Oxycodone. REVIEW OF SYSTEMS: A full 10 point review of systems was obtained and negative except as specified in the HPI. PHYSICAL EXAMINATION: Vital Signs: The patient is currently afebrile. Her vital signs are stable. General Examination: No acute distress. Alert, interactive, female. Looks stated age. HEENT: Normocephalic, atraumatic. Pupils equal, round, reactive to light. Mucous membranes moist. Oropharynx benign. Neck: Supple. Trachea midline. Cardiovascular: Somewhat irregular. Lungs: Grossly clear. Abdomen: Soft. Nontender at this point. Extremities: Moves all extremities. Neurologic: Grossly intact. Skin: No signs of jaundice. Vascular: All extremities perfused. LABORATORY: Reviewed. White blood cell count is 18, hematocrit 25, platelet count 186,000. INR 1.73. Alkaline phosphatase is elevated at 527. Bilirubin is normal. Imaging as noted above. ASSESSMENT AND PLAN: A 63-year-old female with a pancreatic mass. Pancreatic mass. At this time, would like to get records from [facility]. I imagine her pain is coming from this pancreatic mass. Reviewed her CT scan from previous admission when she had intravenous contrast. The mass itself looks very close to the superior mesenteric vein. I am unsure if it is resectable. Given that she does have multiple medical comorbidities, I would like to get the full records and review with some partners before making any further recommendation on surgery but, again, at this point, continue supportive care. The patient has shown some interest in maybe going back down to [facility] but we will continue to monitor. cc: Dakota Last MD
--- NOTE | 2019-01-28 17:25 | PROGRESS NOTE ---
DATE: 01/28/2019 SUBJECTIVE: Chief complaint was abdominal pain and it looks like she was admitted with pancreatitis. She reports she still has pain in the left upper quadrant, epigastric area but it is better. She is asking for liquids. OBJECTIVE: Vital signs: Temp 97.5 degrees, pulse 90, respirations 18, blood pressure 108/55. HEENT: Pupils are equal and round. Lungs: Clear in all lung eng. Cardiovascular: Regular rhythm and rate without murmur or S3. Abdomen: Soft. Skin: Warm and dry. LABORATORY: White blood cell count was elevated at 18,700, hematocrit 25, hemoglobin 8.4. Sodium 143, potassium 3.0, chloride 108, BUN 7, creatinine 0.6. Abdominal and pelvic CT: Mass at the head of the pancreas, possible abscess. Possibility of focal pancreatitis and neoplasm could not be excluded. Chest x-ray: Negative exam. She has a biventricular pacemaker on the left side. Stable calcific granuloma on the right upper lobe. Lungs are clear. Heart size normal. No pneumothorax or pleural effusion. ASSESSMENT AND PLAN: 1. She has known pancreatic mass with cancer, chronic kidney disease stage 3-4, congestive heart failure with mildly reduced ejection fraction about 40%, history of supraventricular tachycardia with atrial fibrillation, chronic anemia, protein malnutrition, leukocytosis of unknown etiology. Past surgical history cholecystectomy and pacemaker placement. So will get records from [facility]. Dr. Last is following. Suspect pain is coming from pancreatic mass. The mass itself looks very close to superior mesenteric vein, unsure if it is resectable, and has multiple comorbidities. I will advance her to liquids at this point at her request. 2. History of cardiac arrhythmia, status post cardiac arrest. Patient has an AICD and pacemaker. 3. Malignant hypercalcemia. 4. History of nonischemic dilated cardiomyopathy. Clinically, she appears to be well compensated. 5. Acute kidney injury. 6. Normocytic anemia. 7. Undefined thyroid disorder. 8. Acute encephalopathy, multifactorial, but suspect hypercalcemia. REVIEW OF PRESENT ORDERS: She is on Zosyn 3.375 g q.6. She is on Pepcid 40 mg IV q.12, Dilaudid 1 mg IV q.3 hours p.r.n. So, I will put her on clear liquids. She is getting normal saline at 175 mL an hour. cc: Emre Cherry MD
[2019-01-29] MEDS: NS 1,000 ML IV SCH (00:47)
[2019-01-29] MEDS: DILAUDID IV PRN ×7 (00:53→22:47)
[2019-01-29] MEDS: ZOFRAN IV PRN ×3 (01:03→22:48)
[2019-01-29] MEDS: PEPCID IV SCH ×2 (04:14→19:07)
[2019-01-29] MEDS: COMPAZINE IV PRN (04:19)
[2019-01-29] MEDS: ZOSYN 3.375 GM in NS 50 ML IV SCH ×4 (04:24→20:22)
[2019-01-29 07:01] LABS: BASO# 0.06 X1000 (0.0-0.2); BASO% 0.3 % (0.0-0.8); EOS# 0.08 X1000 (0.0-0.7); EOS% 0.5 % (0.0-10.0); HEMATOCRIT 21.9 % (37.0-47.0); HEMOGLOBIN 7.1 g/dL (12.0-16.0); IMM GRAN# 0.13 X1000 (0.0-0.04); IMM GRAN% 0.7 % (0.0-0.5); MCH 30.5 PG (27-31); MCHC 32.4 g/dL (33-37); MONO# 1.79 X1000 (0.11-0.59); MONO% 10.1 % (1.7-9.3); NEUT# 12.63 X1000 (1.4-6.5); NEUT% 71.4 % (42.2-75.2); PLT 141 X1000 (130-400); RBC 2.33 XMIL (4.2-5.4); RDW 16.5 % (11.5-14.5); WBC 17.69 X1000 (4.8-10.8)
[2019-01-29 07:17] LABS: IRON SATURATION 26 %; TIBC 124 ug/dL; TOTAL IRON 32 ug/dL (49-151); UNBOUND IRON 92 ug/dL (112-346)
[2019-01-29 07:24] LABS: AGAP 9; ALB/GLOB RATIO 0.9; ALBUMIN 2.3 g/dL (3.5-5.0); ALKALINE PHOSPHATASE 438 U/L (32-104); BUN 7 mg/dL (8-22); CHLORIDE 111 mmol/L (98-107); COSMO 278; CREATININE 0.6 mg/dL (0.5-0.9); ESTIMATED GFR > 60; GLUCOSE 112 mg/dL (70-104); GOT 14 U/L (10-30); GPT 8 U/L (10-36); MAGNESIUM 1.5 mg/dL (1.5-2.7); POTASSIUM 3.3 mmol/L (3.5-5.1); SODIUM 140 mmol/L (136-145); TCO2 20 mmol/L (25-35); TOTAL BILIRUBIN 0.39 mg/dL (0.20-1.00)
[2019-01-29 07:41] LABS: FERRITIN 623 ng/mL (13-150)
[2019-01-29 07:47] LABS: CALCIUM 6.6 mg/dL (8.8-10.2)
--- NOTE | 2019-01-29 09:04 | GENERAL SURGERY PROGRESS NOTE ---
DATE: 01/29/2019 SUBJECTIVE: Patient doing okay. She is resting comfortably. OBJECTIVE: Vital Signs: The patient is currently afebrile. Her vital signs are stable. General: No acute distress. HEENT: Normocephalic, atraumatic. Pupils equal, round, reactive to light. Mucous membranes moist. Oropharynx benign. Neck: Supple. Trachea midline. Cardiovascular: Regular rate and rhythm. Lungs: Grossly clear. Abdomen: Soft, nontender, nondistended. Extremities: Moves all extremities. Neurologic: Grossly intact. Skin: No signs of jaundice. Vascular: All extremities perfused. LABORATORY: Reviewed from yesterday. White blood cell count is 18, hematocrit 25. Bilirubin is normal. ASSESSMENT AND PLAN: A 63-year-old female with a pancreatic mass. Pancreatic mass. Per the family, this has been biopsied at [facility] and shows pancreatic cancer. I reviewed the CT scan extensively and I showed it to several partners. This looks like it is around the superior mesenteric vein and I do not think it is resectable. It is a very large tumor with potential for necrosis and abscess in the middle of it. Again, I do not think it is resectable. There may be some role for neoadjuvant chemotherapy to try to shrink it down to make it more amenable to resection. So, will consult Oncology to get their opinion, but at this point, I do not think she is a surgical candidate. Other option would be to potentially send her back down to [facility], but again, her vascular involvement may be prohibitive. cc: Dakota Last MD
[2019-01-29] MEDS: MYCOSTATIN SUSP PO SCH ×4 (10:30→20:22)
[2019-01-29] MEDS: TOPROL XL PO SCH (10:30)
[2019-01-29] MEDS: TAPAZOLE PO SCH (10:30)
[2019-01-29] MEDS: LANOXIN PO SCH (10:30)
--- NOTE | 2019-01-29 11:07 | HISTORY AND PHYSICAL ---
PRIMARY CARE PHYSICIAN: Jonathan Mansfield MD CHIEF COMPLAINT: Abdominal pain. HISTORY OF PRESENT ILLNESS: Ms. Brown is a 63-year-old female who just recently been diagnosed with a pancreatic mass. She has just recently been admitted and discharge from [facility] where she underwent the biopsy of her pancreatic mass. They are waiting official pathology reports at this time. Though the patient presented to the ER today with complaints of worsening abdominal pain, and a sore throat x3 days. They have reported that her grandson has been around her and has had a cold. They are concerned that her sore throat may be related to something he may have caught from him. The patient also reports that she has had nonproductive cough and some shortness of breath as well. She denies any fever, body aches, or chills. She is reporting some nausea though denies any vomiting or diarrhea. She denies any dysuria as well. The patient is also reporting fatigue and weakness. Upon evaluation in the ER, she was noted to have leukocytosis with white blood cell count of 19,640. She was also anemic with a hemoglobin of 8.4 and hematocrit of 25.5. She did have some mild hypokalemia though urinalysis showed no sign of infection. Given her recent history of pancreatic mass as well as worsening abdominal pain and leukocytosis, we did perform a CT of the abdomen and pelvis which showed that she had findings consistent with mild acute pancreatitis similar to previous. She also did have an increase in the size of the lesion in the pancreatic head, possibly communicating with the duodenal bulb. This lesion is nonspecific though considerations would include a primary pancreatic neoplasm with direct invasion of the duodenal bulb. Other considerations could include a duodenal bulb ulcer with contained perforation and abscess. There was some mild biliary duct dilation. Given these findings, we will admit the patient inpatient for further treatment and evaluation. REVIEW OF SYSTEMS: A 14 point Review of Systems was conducted with the patient, and all were negative except for the pertinent positives mentioned above in the HPI. PAST MEDICAL HISTORY: 1. Diabetes mellitus type 2. 2. Hypertension. 3. Hyperlipidemia. 4. Hypothyroidism. 5. History of ischemic cardiomyopathy with severely reduced systolic function with her most recent echocardiogram in March of 2018 showing ejection fraction of 35 to 40%. History of cardiac arrest in September of 2015. The pacemaker has since had a defibrillator pacemaker placed. 6. History of gastric ulcer. 7. Hiatal hernia. 8. Diverticulosis. 9. Hemorrhoids. 10. Chronic kidney disease. 11. Recent diagnosis of pancreatitis and pancreatic mass. 12. History of SVT and atrial fibrillation. She is on anticoagulation with Eliquis at this time. She does take rate control medicines of digoxin and metoprolol. 13. Chronic anemia. PAST SURGICAL HISTORY: 1. Cholecystectomy. 2. Pacemaker defibrillator placement. 3. Recent pancreatic mass biopsy at [facility]. SOCIAL HISTORY: 1. Patient is a former smoker. She denies any current tobacco, alcohol or illicit drug use. FAMILY HISTORY: Positive for her mother having history of kidney failure. There is no known history of her father having any medical problems. ALLERGIES: Patient has allergies to oxycodone. HOME MEDICATIONS: 1. Eliquis 5 mg p.o. b.i.d. 2. Digoxin 125 mcg p.o. daily. 3. [place] 10 mg 1 p.o. q.4 hours. p.r.n. 4. Methimazole 10 mg p.o. daily. 5. Toprol-XL 100 mg p.o. daily. 6. Prilosec 40 mg p.o. daily. 7. Zofran 4 mg p.o. q.4 hours p.r.n. for nausea. DIAGNOSTIC DATA/LABORATORY RESULTS: White blood cell count is 19,640. Hemoglobin 8.4, hematocrit 25.5, and platelet count 198,000. PT 21.5, INR 1.73, PTT is 39. Sodium 142, potassium 3.2, chloride 109, serum bicarb 20, BUN 6, creatinine 0.63, GFR greater than 60. Glucose 129. Calcium 7.3. Magnesium 1.5. Liver function tests within normal limits for alkaline phosphatase elevated at 508. Amylase 50. Lipase 52. Digoxin level was 0.7. Urinalysis obtained and clean catch was positive for protein and trace ketones. Otherwise negative. There was no blood, nitrites, leukocytes, white blood cells, or bacteria noted. A chest x-ray was negative for any acute abnormalities. CT abdomen and pelvis showed findings consistent with mild acute pancreatitis similar to previous studies. There is increased size of the lesion in the pancreatic head possibly communicating with the duodenal bulb. The lesion is nonspecific. Considerations would include primary pancreatic neoplasm with direct invasion of the duodenal bulb. Other considerations would include duodenal bulb ulcer with contained perforation or abscess. There is also new mild central biliary duct dilation. There were other nonacute findings. Please see CT report for her detailed report. PHYSICAL EXAMINATION: VITAL SIGNS: Temperature 98.1 degrees, heart rate 86, respirations 20, blood pressure is 130/66, oxygen saturation is 100% on room air. GENERAL: Ms. Brown is a very pleasant 63-year-old female. She was resting in the inpatient bed. She was in no acute distress. She was awake, alert, and able to answer questions appropriately. HEENT: Head is atraumatic and normocephalic. Pupils are equal, round and reactive to light. They were 3 mm bilaterally and brisk. Subconjunctivae were pale. Oral mucosa is moist. The patient does appear to have oral thrush. She is complaining of a sore throat. This is likely oropharyngeal. NECK: Supple. Trachea midline. CARDIOVASCULAR: The patient has S1-S2 present. No murmurs, gallops, or rubs appreciated. Regular rate and rhythm. PULMONARY: Patient has symmetrical chest expansion bilaterally. Lungs are clear to auscultation bilaterally in full eng. ABDOMEN: Soft. Does not appear to be distended though the patient does have a protuberant abdomen noted. She was nontender at this time. She was complaining of generalized abdominal pain and tenderness. Bowel sounds are present in all 4 quadrants and were normoactive. EXTREMITIES: No cyanosis or edema noted. Pulse, motor and sensory are intact in all extremities. Radial and pedal pulses are 2+ bilaterally. The patient was noted to have generalized weakness. She feels that this is worse in her bilateral lower extremities. INTEGUMENTARY: The patient's skin is thick, warm, and dry. NEUROLOGICAL: The patient is alert and oriented x3. She is able to move all extremities. There does not appear to be any focal neurological deficits noted. ASSESSMENT AND PLAN: 1. Mild pancreatitis and pancreatic mass. The patient's CT performed on this admission did show mild acute pancreatitis similar to previous. She also did have a pancreatic mass which did show increased size of the lesion in the pancreatic head. There was considerations for possible direct invasion of the duodenal bulb as well as a possible consideration for duodenal bulb ulcer with contained perforation or abscess. Given these findings, we have placed a consult with Dr. Last with surgery. We will await his evaluation and further recommendations for management. We are awaiting the patient's pathology report from [facility]. She will remain NPO at this time given that she is possibly a surgical candidate. We will also hold her Eliquis and any other anticoagulants given this as well. We have placed her with antibiotic coverage of Zosyn. Blood cultures have been obtained also. 2. Intractable pain. We have adjusted the patient's pain medication. We did initially start her with IV morphine though this was not controlling her pain either. We did go ahead and provide her with IV Dilaudid. We will continue this at this time and monitor her response, and pain control with this medicine. 3. Oropharyngeal candidiasis. Patient has recent diagnosis of this. She does have thrush noted to tongue. She also is complaining of a sore. This could have likely [*]involvement. They did do a rapid strep test in the ER, which was negative. There is a throat culture pending as well. We have placed her with nystatin oral solution. We will continue to follow. 4. Normocytic anemia. The patient does have a history of anemia though she is reporting worsening fatigue and weakness. She is at this time with a hemoglobin of 8.4 and hematocrit of 25.5. She does [*]her pill as well. We will go ahead anemia profile for further evaluation, and we will continue to follow. 5. History of SVT and atrial fibrillation. We will likely continue the patient's metoprolol and Digoxin. She will be placed on continuous cardiac telemetry. 6. Hyperthyroidism. We will continue her methimazole. 7. Deep vein thrombosis prophylaxis will be provided with sequential compression devices at this time. As previously mentioned, patient is being evaluated by Surgery and is a possible surgical candidate. We will hold any anti coagulant's at this time. The patient will be placed on surgical floor of telemetry. She will have pattern fingerstick blood sugar as well. The patient does have a history of diabetes mellitus. She is NPO at this time. We will monitor her glucose levels and implement sliding scale insulin if needed. 1. Also, she did have some mild hypokalemia. We will go ahead and place this as well. We will provide some IV hydration and normal saline. We will monitor this closely. She does have a history of having heart failure with a last known ejection fraction of 38 to 40%. Further orders and recommendations pending hospital course, diagnostic studies, and physician evaluation. Dictated by SRAVANTHI Allan for Conner Campbell MD cc: Conner Campbell MD
--- NOTE | 2019-01-29 14:04 | PROGRESS NOTE ---
DATE: 01/29/2019 SUBJECTIVE: Ms. Brown is feeling a little better. She is tolerating the liquids. She would like to see if I can find something to make the pain medicine last a little longer. I think it was her grandson who was at the bedside. OBJECTIVE: Vital Signs: Temp 98.5, pulse 93, respirations 18, blood pressure 120/77. Urine output was 1200 mL. HEENT: Pupils are equal and round. Lungs: Lungs are clear in all lung eng. Cardiovascular: Regular rhythm and rate without murmur or S3. Abdomen: Soft. Skin: Warm and dry. ASSESSMENT AND PLAN: 1. Mild pancreatitis. Pancreatic mass. CT performed on admission did show mild acute pancreatitis, similar to previous exam. She has a pancreatic mass. Dr. Last is following. She was awaiting reports from [facility]. 2. Continue her current pain medication. I may try and increase it some, but apparently she had some trouble with delirium and confusion at [facility], so I am going to be careful with that. 3. Oropharyngeal candidiasis. We will continue current treatment. 4. Normocytic anemia. 5. History of SVT and atrial fibrillation. Rate is controlled. She is on metoprolol and digoxin. 6. hyperthyroidism. She is to continue her methimazole. 7. Deep venous thrombosis prophylaxis. She has sequential compression hoses. I am going to have to decide what we are going to do about this pancreatic mass and Dr. Last is following. His biopsy at [facility] showed pancreatic cancer. Reviewed the CT scan extensively, or Dr. Last did, and it looks like it is around the superior mesenteric vein. I do not think it is resectable. It is a very large tumor. Potential for necrosis and abscess in the middle of it, but it does not appear to be resectable and may be some role for neoadjuvant chemotherapy, so Oncology has been consulted. cc: Emre Cherry MD [facility] CENTERParesh
[2019-01-29] MEDS ORDERED: NS 250 ML ONE (14:11)
[2019-01-29] MEDS: FOLIC ACID PO SCH (15:46)
--- NOTE | 2019-01-29 18:02 | HEMO/ONC CONSULTATION ---
DATE: 01/29/2019 REQUESTING PHYSICIAN: Dr. Last. REASON FOR CONSULT: Pancreatic mass. HISTORY OF PRESENT ILLNESS: Ms. Nadya Brown is a 63-year-old female who we usually follow for leukocytosis. She presented to [facility] Emergency Department complaining of intractable abdominal pain, as well as a sore throat. She and her family report that she was recently diagnosed with pancreatic cancer. She was actually at [facility] earlier this month and had a biopsy. The pathology is currently pending. Per the patient, she has a follow up with [facility] next week to review those results. The patient has already seen Dr. Last during this hospitalization and reports that her pancreatic mass is not resectable. The patient has no acute complaints at this time. We have been consulted to help with her pancreatic cancer. PAST MEDICAL HISTORY: 1. Diabetes mellitus type 2. 2. Hypertension. 3. Hyperlipidemia. 4. Hypothyroidism. 5. History of CHF. 6. Atrial fibrillation. 7. Leukocytosis. 8. Chronic anemia. 9. Chronic kidney disease. PAST SURGICAL HISTORY: 1. Cholecystectomy. 2. Pacemaker/defibrillator placement. 3. Recent pancreatic mass biopsy at [facility]. SOCIAL HISTORY: Patient used to smoke but is no longer a smoker. She denies any alcohol or illicit drug use. She has a supportive family. FAMILY HISTORY: Positive for kidney failure but there is no known family history of cancer. REVIEW OF SYSTEMS: Twelve point review of systems has been completed. It is negative except for as expressed in HPI. PHYSICAL EXAMINATION: Vital Signs: Temperature 98.5 degrees, heart rate 93, respirations 18, blood pressure 120/77, O2 saturation 99% on room air. General: This is an female, sitting up in her hospital bed, in no acute distress. She appears older than her stated age. HEENT: Head normocephalic, atraumatic. Eyes: Pupils equal, round, reactive. Ears, nose, throat, neck, mouth: Mucosa appears to be normal. Gross auditory acuity is intact. Cardiovascular: S1, S2 heard. Irregular irregular rhythm noted. No murmurs, gallops, or rubs appreciated. Respiratory: Chest is clear. Gastrointestinal: Abdomen is soft. Positive bowel sounds. Musculoskeletal: No bony abnormalities. Extremities: Patient does have edema on bilateral lower extremities pretibial, trace to +1 pitting. Neurologic: Patient is alert and oriented with no focal motor deficits. LABS AND STUDIES: White blood cells 17.69, hemoglobin 7.1, hematocrit 21.9, platelet count 141,000. Sodium 140, potassium 3.3, chloride 111, CO2 20, BUN 7, creatinine 0.6, glucose 112. Iron is 32, TIBC 124, saturation percent 26, ferritin 623, B12 1,936, folate less than 2. ASSESSMENT AND PLAN: 1. Pancreatic mass. This has been biopsied down at [facility]. We do not have the records currently and as far as anyone knows, the path is still pending. We would need to get the path back. I have advised the patient at this point if she is out of the hospital she should just follow back up at [facility] for the results and for further treatment planning. We did discuss that we would be happy to help with any treatment closer to home if that is in fact what she needs. She is established with us and all we will have to do is call and we can get her set up. If she cannot get back down to [facility] we can obviously get the results and talk to her further. 2. Leukocytosis. Patient does have a history of leukocytosis. We have previously followed her in our office and she has had white counts that are mildly elevated in the 10 to 11 range. We have previously done an extensive workup which was found to be negative. 3. Anemia, folate deficiency. Patient has folate deficiency. Recommend that she proceed with folic acid repletion. Her hemoglobin is down quite a bit to 7.1. We are going to go ahead and give her unit of packed red blood cells today. Risk and side effects have been discussed and patient is agreeable. 4. Abdominal pain. Likely secondary to biopsy and pancreatic mass. Management per the primary team. 5. Atrial fibrillation. Continue current management. 6. Malignant hypercalcemia. Patient's calcium is down to 6.6 today. Continue to monitor. Thank you for consulting us on Ms. Brown while she is at [facility]. We will continue to follow and adjust treatment plan per her hospital course. Dictated by JERSON Balderas for Melani Cedeño MD cc: Melani Cedeño MD I have seen and examined the patient and the above note reflects my history, physical examination, assessment and plan. Melani HERZOG
[2019-01-30] MEDS: DILAUDID IV PRN ×7 (02:27→22:53)
[2019-01-30] MEDS: ZOSYN 3.375 GM in NS 50 ML IV SCH ×4 (04:21→22:03)
[2019-01-30] MEDS: PEPCID IV SCH ×2 (04:21→16:11)
[2019-01-30] MEDS: MYCOSTATIN SUSP PO SCH ×4 (08:36→22:03)
[2019-01-30] MEDS: LANOXIN PO SCH (08:36)
[2019-01-30] MEDS: TAPAZOLE PO SCH (08:36)
[2019-01-30] MEDS: TOPROL XL PO SCH (08:36)
[2019-01-30] MEDS: FOLIC ACID PO SCH (08:36)
--- NOTE | 2019-01-30 09:24 | GENERAL SURGERY PROGRESS NOTE ---
DATE: 01/30/2019 SUBJECTIVE: Patient seems to be doing okay. Overall she is doing about the same. OBJECTIVE: Vital Signs: Patient is currently afebrile. Her vital signs are stable. General: No acute distress. HEENT: Normocephalic, atraumatic. Pupils equal, round, reactive to light. Mucous membranes moist. Oropharynx benign. Neck: Supple. Trachea midline. Cardiovascular: Regular rate and rhythm. Lungs: Grossly clear. Abdomen: Soft, nontender, nondistended. Extremities: Moves all extremities. Neurologic: Grossly intact. Skin: No signs of jaundice. Vascular: All extremities perfused. LABORATORY DATA: Reviewed from yesterday. Hematocrit has decreased down to 21.9. ASSESSMENT AND PLAN: A 63-year-old with pancreatic mass. 1. Pancreatic mass. Per the family, this is a pancreatic cancer. Reviewed Oncology's note. Appreciate their input. I still do not think this is a resectable cancer. It may be worthwhile to send her back down to [facility] for an opinion again, but at this point, my recommendation would be consideration of neoadjuvant chemotherapy versus evaluation for resection at [facility] with possible vascular reconstruction. 2. Leukocytosis. It is relatively stable. 3. Anemia. It has gone down. I suspect this is probably related to her pancreatic mass, although getting down to 21.9 may require at least consideration of transfusion. I will continue to follow with you. cc: Dakota Last MD
[2019-01-30] MEDS: ZOFRAN IV PRN ×2 (11:58→19:29)
--- NOTE | 2019-01-30 16:53 | PROGRESS NOTE ---
DATE: 01/30/2019 SUBJECTIVE: Ms. Brown is feeling better. Her tummy feels a little better. She is tolerating liquids. She does not want any solid food yet. OBJECTIVE: Temperature 98.1, pulse 87, respirations 16, and blood pressure 128/65. Pupils are equal and round. Lungs are clear in all lung eng. Cardiovascular exam with regular rhythm and rate without murmur or S3. Blood sugar 143, 112, and 118. ASSESSMENT AND PLAN: 1. Pancreatic mass. This is pancreatic cancer. Dr. Jacob has been consulted Dr. Last is evaluated. I do not think this is resectable cancer, and it may be worthwhile to go back to [facility] for a second opinion, but at this point consider neoadjuvant chemotherapy versus evaluation resection at [facility]. Dr. Jacob to evaluate. 2. Leukocytosis, relatively stable. 3. Anemia. Continue to watch. Hematocrit is 21 and hemoglobin 7.1. 4. Diabetes mellitus. Her blood sugars are 143, 112 and 118 so well controlled. 5. Dr. Jacob has evaluated. This has been biopsied at [facility]. We can set her up to see as an outpatient. The patient does have a history of leukocytosis. I do not see any active infection. Anemia and folate deficiency so continue to replace folate. Abdominal pain is better. She has atrial fibrillation and the rate is controlled. 6. Malignant hypercalcemia, and that seems under better control as well. In fact, her calcium is low and now it is 6.6, but her albumin is 2.3. cc: Emre Cherry MD
[2019-01-31] MEDS: DILAUDID IV PRN ×7 (02:07→21:44)
[2019-01-31] MEDS: ZOFRAN IV PRN ×3 (02:07→21:43)
[2019-01-31] MEDS: ZOSYN 3.375 GM in NS 50 ML IV SCH ×4 (04:27→21:44)
[2019-01-31] MEDS: PEPCID IV SCH ×2 (04:27→17:02)
[2019-01-31] MEDS: LANOXIN PO SCH (08:18)
[2019-01-31] MEDS: TAPAZOLE PO SCH (08:18)
[2019-01-31] MEDS: TOPROL XL PO SCH (08:18)
[2019-01-31] MEDS: FOLIC ACID PO SCH (08:18)
[2019-01-31] MEDS: MYCOSTATIN SUSP PO SCH ×4 (08:19→21:43)
--- NOTE | 2019-01-31 11:10 | GENERAL SURGERY PROGRESS NOTE ---
DATE: 01/31/2019 SUBJECTIVE: Reviewed notes from other physicians. The patient seems to be doing about the same. I do not think this is a resectable cancer. I think at this point, our options are to see if you [facility] would want to re-evaluate her or do neoadjuvant therapy to try to shrink down here to make surgery possible. We will defer that plan to Oncology and hospitalist but at this point no immediate plans for surgical intervention. cc: Dakota Last MD
--- NOTE | 2019-01-31 14:26 | PROGRESS NOTE ---
DATE: 01/31/2019 SUBJECTIVE: Ms. Brown is more comfortable. She still has abdominal discomfort. She is drinking liquids and some Ensure. OBJECTIVE: Vital Signs: Temperature 98 degrees, pulse 80, blood pressure 120/70. HEENT: Pupils are equal and round. Lungs: Clear in all lung eng. Cardiovascular: Regular rhythm and rate without murmur or S3. Abdomen: Soft. Skin: Warm and dry. LABORATORY STUDIES: Urine output is 700 mL. Blood sugar 114, 127, 191. ASSESSMENT AND PLAN: 1. This does not appear to be a resectable pancreatic cancer, and I am not sure she would be able to survive the surgery so the question is whether to pursue neoadjuvant therapy or no treatment at all and pursue hospice. She is anxious to talk to Oncology and at this point we are going to have to help control the pain with something other than Dilaudid I believe, so we will try [place] and try p.o. pain medications. 2. Anemia. Continue to follow hemoglobin and hematocrit. Hematocrit 21, hemoglobin is 7. 3. Diabetes mellitus type 2. Sugars appear under good control. 4. History of supraventricular tachycardia in atrial fibrillation. Rate is controlled. She is on metoprolol and digoxin. 5. Hypothyroidism. REVIEW OF PRESENT ORDERS: We have her on Zosyn 3.375 g q.6 h. Her blood cultures were negative. Throat culture was negative for strep. Strep antigen was negative. I may try some Ultram or tramadol and see if that gives her some relief, 50 mg p.o. q.6 h. p.r.n. cc: Emre Cherry MD
--- NOTE | 2019-01-31 20:58 | HEMO/ONC PROGRESS NOTE ---
DATE: 01/31/2019 We can consider doing neoadjuvant treatment on this patient once she is discharged and we receive final pathology from [facility]. The patient has previously expressed interest in returning to [facility] to discuss her treatment plan and she can also do that as well if that is what she decides to do. We have requested the pathology and will continue to await those results. We will contact the patient for follow-up once she is discharged from the hospital. Dictated by JERSON Balderas for Melani Cedeño MD cc: Melani Cedeño MD
[2019-02-01] MEDS: DILAUDID IV PRN ×7 (00:46→21:09)
[2019-02-01] MEDS: ZOFRAN IV PRN ×4 (04:39→20:54)
[2019-02-01] MEDS: PEPCID IV SCH ×2 (04:39→17:50)
[2019-02-01] MEDS: ZOSYN 3.375 GM in NS 50 ML IV SCH ×4 (04:39→20:54)
[2019-02-01] MEDS: LANOXIN PO SCH (08:00)
[2019-02-01] MEDS: FOLIC ACID PO SCH (08:01)
[2019-02-01] MEDS: MYCOSTATIN SUSP PO SCH ×4 (08:01→20:54)
[2019-02-01] MEDS: TOPROL XL PO SCH (08:01)
[2019-02-01] MEDS: TAPAZOLE PO SCH (08:01)
--- NOTE | 2019-02-01 10:22 | PROGRESS NOTE ---
DATE: 02/01/2019 SUBJECTIVE: Ms. Brown says the pain may be a little better. She is still not hungry for any solid food. She is getting down liquids a little better than she was. OBJECTIVE: Vital Signs: Temperature 98.5 degrees, pulse 83, respirations 16, blood pressure 143/78. Eyes: Pupils are equal and round. Lungs: Clear in all lung eng. Cardiovascular exam: Regular rhythm and rate without murmur or S3. Abdomen: Abdomen is soft. Skin: Skin is warm and dry. : Urine output 700 mL. ASSESSMENT AND PLAN: 1. Unresectable pancreatic cancer, and the decision is whether to pursue neoadjuvant therapy or to go home and go on hospice care. Oncology, Dr. Jacob, is following. She is more comfortable. Continue current medication. 2. Anemia. Continue to follow hemoglobin and hematocrit. 3. Diabetes mellitus type 2. 4. History of supraventricular tachycardia with atrial fibrillation. She is on metoprolol and digoxin. 5. Hypothyroidism. cc: Emre Cherry MD
[2019-02-01] MEDS: COMPAZINE IV PRN ×2 (11:12→17:51)
[2019-02-01] MEDS ORDERED: DULCOLAX PR PRN (14:43)
[2019-02-01] MEDS: LACTULOSE PO SCH ×3 (15:08→21:10)
[2019-02-01] MEDS: MILK OF MAGNESIA PO SCH (15:08)
[2019-02-02] MEDS: PEPCID IV SCH ×4 (02:49→16:31)
[2019-02-02] MEDS: ZOSYN 3.375 GM in NS 50 ML IV SCH ×4 (02:49→21:52)
[2019-02-02] MEDS: ZOFRAN IV PRN ×4 (02:49→21:51)
[2019-02-02] MEDS: DILAUDID IV PRN ×6 (02:52→21:51)
[2019-02-02] MEDS: COMPAZINE IV PRN ×2 (06:10→13:41)
[2019-02-02] MEDS: LANOXIN PO SCH (09:31)
[2019-02-02] MEDS: MYCOSTATIN SUSP PO SCH ×4 (09:31→21:51)
[2019-02-02] MEDS: TOPROL XL PO SCH (09:31)
[2019-02-02] MEDS: FOLIC ACID PO SCH (09:31)
[2019-02-02] MEDS: TAPAZOLE PO SCH (09:31)
[2019-02-02] MEDS: MILK OF MAGNESIA PO SCH (09:32)
[2019-02-02] MEDS: LACTULOSE PO SCH ×2 (09:32→21:52)
[2019-02-02] MEDS ORDERED: LASIX IV ONE (14:16)
--- NOTE | 2019-02-02 14:29 | PROGRESS NOTE ---
DATE: 02/02/2019 SUBJECTIVE: Ms. Brown still has some discomfort in her left abdomen. She does not want to advance any food. She is having trouble keeping down the full liquids she is taking now. Her feet have a little more swelling. OBJECTIVE: Vital signs: Temp 97.6 degrees, pulse 80, respirations 16, blood pressure 138/90. HEENT: Pupils are equal and round. Lungs: Clear in all lung eng. Cardiovascular: Regular rhythm and rate without murmur or S3. Abdomen: Soft. Skin: Warm and dry. LAB: Blood sugars 170, 173, 172. ASSESSMENT AND PLAN: 1. Unresectable pancreatic cancer. Deciding about neoadjuvant chemotherapy. 2. Anemia. Follow hemoglobin and hematocrit. 3. Diabetes mellitus type 2. 4. Supraventricular tachycardia with atrial fibrillation. On metoprolol. Rate is controlled. 5. Hypothyroidism. 6. She has a little more swelling in her lower extremities. We will try and give her some Lasix to see if that will help some. We will give her 40 of Lasix tonight. cc: Emre Cherry MD
[2019-02-03] MEDS: DILAUDID IV PRN ×3 (00:51→10:02)
[2019-02-03] MEDS: PEPCID IV SCH ×2 (04:08→15:59)
[2019-02-03] MEDS: ZOSYN 3.375 GM in NS 50 ML IV SCH ×5 (04:08→22:39)
[2019-02-03] MEDS: ZOFRAN IV PRN (06:48)
[2019-02-03] MEDS: TAPAZOLE PO SCH (09:51)
[2019-02-03] MEDS: FOLIC ACID PO SCH (09:51)
[2019-02-03] MEDS: LACTULOSE PO SCH ×2 (09:51→22:32)
[2019-02-03] MEDS: LANOXIN PO SCH (09:51)
[2019-02-03] MEDS: TOPROL XL PO SCH (09:52)
[2019-02-03] MEDS: COMPAZINE IV PRN (10:01)
[2019-02-03] MEDS: MYCOSTATIN SUSP PO SCH ×4 (10:02→22:02)
[2019-02-03] MEDS: MILK OF MAGNESIA PO SCH (10:02)
[2019-02-03] MEDS: ULTRAM PO PRN ×2 (13:52→21:30)
--- NOTE | 2019-02-03 14:10 | PROGRESS NOTE ---
DATE: 02/03/2019 SUBJECTIVE: Ms. Brown is still having a good deal of pain. Her IV access is fading so I think we will need to get a PICC line on her. OBJECTIVE: Temperature is 98.5 degrees, pulse 96, respirations 18, blood pressure 106/73. Pupils are equal and round. Lungs are clear in all lung eng. Cardiovascular Examination: Regular rhythm and rate without murmur or S3. Abdomen is soft. Skin is warm and dry. Blood sugar 173, 201, 169, 140, 143. ASSESSMENT AND PLAN: 1. Unresectable pancreatic cancer. Considering adjuvant chemotherapy or hospice care. She will need an intravenous access. Will need pain medicines and plan to continue these antibiotics. 2. Anemia. We will follow hemoglobin and hematocrit. Stable. 3. Diabetes mellitus type 2. 4. Supraventricular tachycardia with atrial fibrillation, getting metoprolol. Rate is controlled. 5. Hypothyroidism. 6. She has had a little more swelling in her lower extremities. They had expressed some intent to return to [facility]. I think we need to discuss what we want to do at this point. Continue comfort management if she is unresectable and then need to decide what we are going to do as far as discharge planning. She is still on the Zosyn 3.375 g intravenous every 6 hours. cc: Emre Cherry MD
[2019-02-03] MEDS: NORCO-10 PO PRN ×2 (15:43→22:02)
[2019-02-03 21:40] LABS: INR 1.38
[2019-02-04] MEDS: ZOFRAN ODT PO PRN (00:39)
[2019-02-04] MEDS: ULTRAM PO PRN ×3 (03:50→23:36)
[2019-02-04] MEDS: PEPCID IV SCH ×2 (06:06→17:02)
[2019-02-04] MEDS: ZOSYN 3.375 GM in NS 50 ML IV SCH ×4 (06:06→23:36)
[2019-02-04] MEDS: ZOFRAN IV PRN ×3 (06:13→15:45)
[2019-02-04] MEDS ORDERED: NS 250 ML ONE (08:47)
[2019-02-04] MEDS: MILK OF MAGNESIA PO SCH ×2 (11:24→11:36)
[2019-02-04] MEDS: FOLIC ACID PO SCH (11:24)
[2019-02-04] MEDS: MYCOSTATIN SUSP PO SCH ×4 (11:24→21:19)
[2019-02-04] MEDS: DILAUDID IV PRN ×3 (11:24→19:14)
[2019-02-04] MEDS: LACTULOSE PO SCH ×3 (11:24→21:17)
[2019-02-04] MEDS: LANOXIN PO SCH (11:24)
[2019-02-04] MEDS: TOPROL XL PO SCH (11:24)
[2019-02-04] MEDS: TAPAZOLE PO SCH (11:25)
--- NOTE | 2019-02-04 17:23 | PROGRESS NOTE ---
DATE: 02/04/2019 Ms. Brown is still got pretty good pain and nausea. She is not able to keep much down by mouth. Still requiring IV Dilaudid. We had difficulty with IV access so we put a PICC line in the right arm. Temperature 98.5 degrees, pulse 106, respirations 20, blood pressure 106/67. Pupils are equal and round. Lungs are clear in all lung eng. Cardiovascular. Regular rhythm, rate without murmur or S3. Abdomen is soft. Skin is warm and dry. Blood sugar 169, 151, 253. ASSESSMENT AND PLAN: 1. Unresectable pancreatic cancer. Considering adjuvant chemotherapy, I think they are deciding I think between adjuvant therapy and hospice care. 2. Anemia. Hemoglobin, hematocrit, continue to follow, hematocrit 21, hemoglobin is 7. We may give her a unit of blood tomorrow. 3. Diabetes mellitus type 2. Sugars under control. 4. Supraventricular tachycardia in atrial fibrillation. She is on metoprolol. The rate is controlled. 5. Hypothyroidism. 6. Has had more swelling in the lower extremities and she is pretty tired and weak so getting Dilaudid 1 mg IV q.3 hours, Lanoxin 125 mcg daily. Will check a digitalis level in the morning, lactulose 30 mL p.o. b.i.d., metoprolol succinate extended release 100 mg daily, she is getting Ultram 50 mg q.6 hours is ordered but mainly requiring IV Dilaudid and she is on Unasyn 3.375 g IV q.6 hours. She has had no growth from blood cultures on the or blood culture from the of this month. cc: Emre Cherry MD
[2019-02-04] MEDS: COMPAZINE IV PRN (19:14)
[2019-02-05] MEDS: DILAUDID IV PRN ×2 (01:09→05:29)
[2019-02-05] MEDS: PEPCID IV SCH ×2 (04:35→18:03)
[2019-02-05] MEDS: ZOSYN 3.375 GM in NS 50 ML IV SCH ×3 (05:22→17:24)
[2019-02-05] MEDS: LANOXIN PO SCH (08:25)
[2019-02-05] MEDS: FOLIC ACID PO SCH (08:26)
[2019-02-05] MEDS: LACTULOSE PO SCH ×2 (08:27→21:04)
[2019-02-05] MEDS: TAPAZOLE PO SCH (08:27)
[2019-02-05] MEDS: TOPROL XL PO SCH (08:27)
[2019-02-05] MEDS: MYCOSTATIN SUSP PO SCH ×4 (08:27→23:27)
[2019-02-05] MEDS: MILK OF MAGNESIA PO SCH (08:27)
--- NOTE | 2019-02-05 13:47 | PROGRESS NOTE ---
DATE: 02/05/2019 SUBJECTIVE: Ms. Brown was sleeping, resting comfortably, easy to arouse. She says she does have a little more pain relief. She is getting down liquids but does not want to try solid food. Still has a hard time keeping down p.o. medication. OBJECTIVE: Temperature 97.9 degrees, pulse 111, respirations 18, blood pressure 96/50. Pupils are equal and round. Lungs are clear in all lung eng. Cardiovascular Examination: Regular rhythm and rate without murmur or S3. Abdomen is soft. Skin is warm and dry. Blood sugars 161, 205, 162. ASSESSMENT AND PLAN: 1. Pancreatic cancer. It looks inoperable. Family not sure whether they were going to be able to get her to [facility]. I have discussed the case with Dr. Melani Cedeño. I am going to try and switch her pain medicines over. We will try a fentanyl patch and see if we can get off of the intravenous Dilaudid. We are awaiting pathology. 2. Nutrition is poor. Getting liquids down. We have her on empiric Zosyn 3.375 g intravenous every 6 hours. There is no growth in any of the blood cultures. She has remained afebrile. I am going to stop the Zosyn. REVIEW OF HER LABS: We are watching her hemoglobin and hematocrit. Hematocrit is 21, hemoglobin was 7.1. That was back on the . I will recheck a CBC and a Chem-22 again in the morning. We will start her on a fentanyl patch. Still trying to get back records from [facility] and pathology. cc: Emre Cherry MD
[2019-02-05] MEDS ORDERED: DURAGESIC 12 MICROGM/HR PATCH TD SCH (16:00)
[2019-02-05] MEDS ORDERED: ATIVAN IV PRN (16:19)
[2019-02-05] MEDS: NORCO-10 PO PRN (16:32)
[2019-02-06] MEDS: COMPAZINE IV PRN ×2 (00:23→14:11)
[2019-02-06] MEDS: ZOSYN 3.375 GM in NS 50 ML IV SCH ×5 (00:23→23:34)
[2019-02-06] MEDS: ZOFRAN IV PRN ×4 (01:58→20:46)
[2019-02-06] MEDS: NORCO-10 PO PRN ×5 (01:58→20:46)
[2019-02-06] MEDS: PEPCID IV SCH ×2 (04:11→16:28)
[2019-02-06] MEDS: TAPAZOLE PO SCH (08:03)
[2019-02-06] MEDS: MYCOSTATIN SUSP PO SCH ×3 (08:03→16:19)
[2019-02-06] MEDS: FOLIC ACID PO SCH (08:03)
[2019-02-06] MEDS: TOPROL XL PO SCH (08:03)
[2019-02-06] MEDS: LANOXIN PO SCH (08:03)
[2019-02-06] MEDS: MILK OF MAGNESIA PO SCH (08:04)
[2019-02-06] MEDS: LACTULOSE PO SCH (08:04)
[2019-02-06] MEDS: DURAGESIC 25 MICROGM/HR PATCH TD SCH (14:08)
[2019-02-06] MEDS: DILAUDID IV PRN ×2 (14:09→23:33)
--- NOTE | 2019-02-06 14:32 | HEMO/ONC PROGRESS NOTE ---
DATE: 02/05/2019 SUBJECTIVE: Ms. Brown is resting comfortably in her bed. Her daughter is at bedside. OBJECTIVE: Vital Signs: Temperature 97.9 degrees, heart rate 111, respirations 18, blood pressure 96/58, O2 saturation 97% on 2 L nasal cannula. LABS AND STUDIES: No new labs for 02/05/2019. ASSESSMENT AND PLAN: 1. Pancreatic cancer. We did contact [facility] and we did get confirmation on the pathology that the patient indeed does have pancreatic cancer. The patient was resting comfortably in bed and I mainly discussed with the patient's daughter. We discussed that it does appear to be inoperable and that their options at this point would be to proceed with what will likely be neoadjuvant chemotherapy or proceed with hospice. I did discuss the requirements in order to receive chemotherapy including the need of performance status. We also discussed that we will not be initiating chemotherapy while the patient is still in the hospital. We want to see the patient outside of the hospital in our office and final treatment planning will be done at that time. Again, there was some question about B, but she may not be strong enough to get down there or they may not have the means to get her back down there. Again, we will be happy to treat the patient here locally and we have now received pathology from [facility] but all treatment will be done on an outpatient basis once the patient is discharged and is well enough to chemotherapy. 2. Pain. Pain management as per Dr. Cherry at this time as he is the attending. 3. Anemia. Patient is being monitored. She has received blood transfusions since being here. 4. Diabetes mellitus type 2. Continue current management. Dictated by JERSON Balderas for Melani Cedeño MD cc: Melani Cedeño MD I have seen and examined the patient and the above note reflects my history, physical examination, assessment and plan. Melani HERZOG
[2019-02-06] MEDS ORDERED: NS 500 ML IV SCH (16:00)
--- NOTE | 2019-02-06 16:40 | PROGRESS NOTE ---
DATE: 02/06/2019 SUBJECTIVE: Patient sitting on the bed. She has been complaining of a abdominal pain and some diarrhea mostly during the night. She is getting down liquids. She was taking some solid food at home but I am not quite sure if she wants to try it again at this moment. I had a large conversation with this patient's daughter. It looks like the pancreatic cancer is inoperable and also as per the patient's daughter, probably she is not going to get more chemotherapy. Palliative Care is on board. We discussed the possibility of hospice. The family will meet together to decide the next step and we will talk again in the morning. PHYSICAL EXAMINATION: Vital Signs: Temperature 98.2 degrees, pulse 76, respiratory rate 18, blood pressure 118/51, oxygen saturation 94% on nasal cannula. HEENT: Head normocephalic, no trauma. PERRLA. Neck: Supple. No JVD. No masses. Central trachea. Chest: Clear to auscultation. Some crepitus at the bases. Abdomen: Abdomen soft. Generalized tenderness to palpation mostly at the level of the periumbilical area. Positive bowel sounds. Extremities: Extremities 2+ lower extremity edema. No clubbing. No cyanosis. Neurological: The patient is alert. She is oriented x3. She is hard of hearing. LABORATORY: Glucose 193. ASSESSMENT AND PLAN: 1. Pancreatic cancer. Like I mentioned before it does appear to be inoperable. We discussed the possibility of hospice. She will meet with the family and they will let me know if they want to proceed with hospice or be more aggressive and try chemotherapy, probably at [facility]. 2. Abdominal pain. We will continue with same management. It has been increased the fentanyl patch. 3. Anemia. She received a blood transfusion during this hospitalization because her hemoglobin was low at 7.1. I will recheck it again tomorrow. She has a history of pulmonary embolism and the Eliquis has been stopped for that reason. 4. History of pulmonary embolism as above. 5. Nutritional status. This patient is not tolerating too much food. She is tolerating liquids but she has been having a lot of pain. I will give her today a little bit of fluid so she does not get dehydrated. 6. Generalized weakness and physical deconditioning. Aware. I will wait for the family to decide if she will go ahead and be treated or they will go with hospice, to decide if this patient will need physical therapy or not. For right now she is resting in bed. cc: Smith Alvarez MD
[2019-02-06] MEDS ORDERED: ELIQUIS PO SCH (21:00)
[2019-02-07] MEDS: NORCO-10 PO PRN (03:08)
[2019-02-07] MEDS: ZOFRAN ODT PO PRN (03:08)
[2019-02-07] MEDS: LACTULOSE PO SCH ×3 (03:40→20:01)
[2019-02-07] MEDS: MYCOSTATIN SUSP PO SCH ×5 (03:40→20:00)
[2019-02-07] MEDS: PEPCID IV SCH ×2 (03:41→19:59)
[2019-02-07] MEDS: DILAUDID IV PRN ×5 (05:12→23:03)
[2019-02-07] MEDS: COMPAZINE IV PRN (05:12)
[2019-02-07] MEDS: ZOSYN 3.375 GM in NS 50 ML IV SCH ×3 (05:13→20:05)
[2019-02-07 07:24] LABS: BASO# 0.02 X1000 (0.0-0.2); BASO% 0.1 % (0.0-0.8); EOS# 0.08 X1000 (0.0-0.7); EOS% 0.4 % (0.0-10.0); HEMATOCRIT 15.6 % (37.0-47.0); IMM GRAN# 0.05 X1000 (0.0-0.04); IMM GRAN% 0.3 % (0.0-0.5); LYMPH# 3.84 X1000 (1.2-3.4); LYMPH% 20.6 % (20.5-51.1); MCH 30.4 PG (27-31); MCHC 31.4 g/dL (33-37); MCV 96.9 FL (81-99); MONO# 0.87 X1000 (0.11-0.59); MONO% 4.7 % (1.7-9.3); MPV 10.6 FL (7.4-10.4); NEUT# 13.77 X1000 (1.4-6.5); NEUT% 73.9 % (42.2-75.2); PLT 108 X1000 (130-400); RBC 1.61 XMIL (4.2-5.4); RDW 17.6 % (11.5-14.5); WBC 18.63 X1000 (4.8-10.8)
[2019-02-07 07:26] LABS: HEMOGLOBIN 4.9 g/dL (12.0-16.0)
[2019-02-07 07:59] LABS: CREATININE 1.7 mg/dL (0.5-0.9); POTASSIUM 2.6 mmol/L (3.5-5.1)
[2019-02-07] MEDS ORDERED: KLOR-CON PO ONE (08:33)
[2019-02-07 08:36] LABS: LYMPHS 34 % (21-51); MONO 2 % (1-9); SEGS 62 % (42-75)
[2019-02-07 08:37] LABS: ANISOCYTOSIS 1+; HYPOCHROM 1+
[2019-02-07] MEDS: TAPAZOLE PO SCH (09:28)
[2019-02-07] MEDS: FOLIC ACID PO SCH (09:28)
[2019-02-07] MEDS: TOPROL XL PO SCH (09:28)
[2019-02-07] MEDS: MILK OF MAGNESIA PO SCH (09:29)
[2019-02-07] MEDS: NS 1,000 ML IV SCH ×2 (09:30→14:28)
[2019-02-07] MEDS: LANOXIN PO SCH (09:30)
--- NOTE | 2019-02-07 13:41 | PROGRESS NOTE ---
DATE: 02/07/2019 SUBJECTIVE: This patient is sitting on the bed, the abdominal pain looks a little bit better today. She has been tolerating p.o. Her hemoglobin dropped significantly and today is 4.9. She will receive 2 units of PRBC's. I will replace the potassium as well. I will start her on IV fluids. She does have an acute kidney injury, probably due to some dehydration. OBJECTIVE: Vital Signs: Temperature 97.5 degrees, pulse 60, respiratory rate 18, blood pressure 97/66, and oxygen saturation 96 on room air. HEENT: Head normocephalic. No trauma. PERRLA. Neck: Supple. No JVD. No masses. Central trachea. Chest: Clear to auscultation with some crepitus at the bases. Abdomen: Soft. Generalized tenderness to palpation mostly at the level of the periumbilical area. Positive bowel sounds. Extremities: 2+ lower extremity edema. No clubbing. No cyanosis. Neurological: The patient is alert. She is oriented x3. She is hard of hearing. LABORATORY: WBC 18.6, hemoglobin 4.9, hematocrit 15.6, and platelets 108,000. Sodium 146, potassium 2.6, chloride 102, bicarbonate 33, BUN 32, creatinine 1.7, glucose 125, and calcium 7. ASSESSMENT AND PLAN: 1. Pancreatic cancer. It looks like this is inoperable. They will discuss the case with the daughter, and she is evaluating the possibility of hospice. She will meet with the family, and she will meet with the hospice team as well, but we will continue to monitor. 2. Anemia, hemoglobin dropped to 4.9. I will transfuse this patient with 2 units of PRBCs, and I will monitor. Vital signs are stable. 3. Abdominal pain. We will continue with same management. The abdominal pain is better compared with yesterday. 4. History of pulmonary embolism, not on anticoagulation due to her anemia. 5. Nutritional status. This patient is not tolerating too much food. She is tolerating liquid diet. We will continue with same management. 6. Acute kidney injury, probably because she is not eating or drinking too much. Yesterday, she received some normal saline, but today I will give her normal saline continuously to try to help with the fluid depletion. We will monitor. 7. Generalized weakness and physical deconditioning. Aware. I will wait for the family to decide if she will go ahead and be treated, or if she will go with hospice. 8. Resuscitation status. We had a large conversation with the daughter, she has requested to put this patient DNR. cc: Smith Alvarez MD
[2019-02-07] MEDS: ZOFRAN IV PRN (19:49)
[2019-02-08] MEDS: ZOSYN 3.375 GM in NS 50 ML IV SCH ×4 (00:59→18:44)
[2019-02-08] MEDS: PEPCID IV SCH ×2 (04:31→16:13)
[2019-02-08] MEDS: DILAUDID IV PRN ×4 (04:31→21:24)
[2019-02-08] MEDS: NS 1,000 ML IV SCH (06:04)
[2019-02-08 07:51] LABS: BASO# 0.02 X1000 (0.0-0.2); BASO% 0.1 % (0.0-0.8); EOS# 0.02 X1000 (0.0-0.7); EOS% 0.1 % (0.0-10.0); HEMATOCRIT 26.4 % (37.0-47.0); HEMOGLOBIN 8.8 g/dL (12.0-16.0); IMM GRAN# 0.06 X1000 (0.0-0.04); IMM GRAN% 0.3 % (0.0-0.5); LYMPH# 2.48 X1000 (1.2-3.4); MCH 31.1 PG (27-31); MCHC 33.3 g/dL (33-37); MCV 93.3 FL (81-99); MONO# 0.83 X1000 (0.11-0.59); MONO% 4.7 % (1.7-9.3); MPV 11.1 FL (7.4-10.4); NEUT% 80.8 % (42.2-75.2); PLT 93 X1000 (130-400); RBC 2.83 XMIL (4.2-5.4); RDW 16.4 % (11.5-14.5); WBC 17.71 X1000 (4.8-10.8)
[2019-02-08 08:31] LABS: CREATININE 1.5 mg/dL (0.5-0.9); POTASSIUM 2.8 mmol/L (3.5-5.1)
[2019-02-08 08:44] LABS: CALCIUM 7.1 mg/dL (8.8-10.2)
[2019-02-08] MEDS: TOPROL XL PO SCH (08:55)
[2019-02-08] MEDS: MILK OF MAGNESIA PO SCH (08:56)
[2019-02-08] MEDS: ZOFRAN IV PRN ×3 (08:56→17:37)
[2019-02-08] MEDS: MYCOSTATIN SUSP PO SCH ×4 (08:56→21:24)
[2019-02-08] MEDS: LACTULOSE PO SCH ×2 (08:57→21:24)
[2019-02-08] MEDS: LANOXIN PO SCH (08:57)
[2019-02-08] MEDS: FOLIC ACID PO SCH (08:57)
[2019-02-08] MEDS: TAPAZOLE PO SCH (08:57)
[2019-02-08] MEDS ORDERED: KLOR-CON PO SCH (12:45)
[2019-02-08] MEDS ORDERED: CALMOSEPTINE OINTMENT TOP PRN (12:54)
[2019-02-08] MEDS: D5W 1,000 ML IV SCH (14:02)
[2019-02-08] MEDS ORDERED: POTASSIUM CHLORIDE 20 MEQ in D5W 1,000 ML IV SCH (15:30)
--- NOTE | 2019-02-08 15:58 | PROGRESS NOTE ---
DATE: 02/08/2019 SUBJECTIVE: Patient is resting comfortably in bed, but she has been complaining of abdominal pain around the periumbilical area. She received yesterday 2 PRBC's, and the hemoglobin improved. There is a report that this patient has been having dark stools. As per the patient, this has been happening for awhile. Hemoglobin is better. We will continue to monitor. I will get an occult blood in the stool. I will discuss with the family to see if they want me to ask for Gastroenterology evaluation to see if she needs to be scoped. OBJECTIVE: Vital Signs: Temperature 97.8 degrees, pulse 82, respiratory rate 20, blood pressure 121/88. Oxygen saturation 100% on room air. HEENT: Head normocephalic. No trauma. PERRLA. Neck: Supple. No JVD. No masses. Central trachea. Chest: Clear to auscultation. There is some crepitus at the bases. Abdomen: Soft. Generalized tenderness to palpation mostly at the level of the periumbilical area. Positive bowel sounds. Extremities: 2+ lower extremity edema. No clubbing. No cyanosis. Neurological: The patient is alert. She is oriented x3. No deficit. LABORATORY: WBC 17.7, hemoglobin 8.8, hematocrit 26.4, and platelets 93,000. Sodium 148, potassium 2.8, chloride 105, bicarbonate 28, BUN 25, creatinine 1.5, glucose 121, and calcium 7.1. ASSESSMENT AND PLAN: 1. Pancreatic cancer. It looks like this is inoperable, and it looks like also they discussed the case with Hematology/Oncology Department. They are not planning to do any treatment. I have been discussing the case with the family especially her daughter. I believe the plan is to ask Hospice to take care of the patient, but at this point we will continue to monitor and treatment. 2. Anemia. Hemoglobin dropped to 4.9, and after 2 PRBC's is more than 8. I will continue to monitor. Vital signs are stable, probably the hemoglobin is dropping due to GI bleed. 3. Abdominal pain. Continue with same management likely secondary to her cancer. 4. History of pulmonary embolism, not on anticoagulation due to her anemia and possible GI bleed. 5. Nutritional status. This patient is not tolerating too much food. She is she is tolerating liquid diet. Continue with same management. 6. Acute kidney injury, likely this patient is not eating or drinking too much. I put her on normal saline. Kidney function is getting a little bit better, but I will stop it and put her on D5 and water due to her hypernatremia. 7. Hypokalemia. We will replace the potassium. 8. Generalized weakness and physical deconditioning. Aware. I will wait for the family decision to see if they want to go ahead and treat the patient or go with hospice. 9. Resuscitation status. Patient is DNR level 1. cc: Smith Alvarez MD
[2019-02-08] MEDS: CARAFATE PO SCH ×2 (16:06→21:24)
[2019-02-08] MEDS: D5W + KCL 20 MEQ 1,000 ML IV SCH (16:11)
[2019-02-08] MEDS: NORCO-10 PO PRN (17:37)
[2019-02-08] MEDS: PRILOSEC PO SCH (21:24)
[2019-02-09] MEDS: ZOSYN 3.375 GM in NS 50 ML IV SCH ×4 (00:59→18:09)
[2019-02-09] MEDS: DILAUDID IV PRN ×3 (01:10→15:27)
[2019-02-09] MEDS: D5W 1,000 ML IV SCH (04:38)
[2019-02-09] MEDS: D5W + KCL 20 MEQ 1,000 ML IV SCH ×2 (05:40→18:17)
[2019-02-09] MEDS: PEPCID IV SCH ×2 (05:40→17:07)
[2019-02-09] MEDS: CARAFATE PO SCH ×4 (05:59→20:03)
[2019-02-09] MEDS: PRILOSEC PO SCH ×2 (05:59→20:03)
[2019-02-09 07:45] LABS: BASO# 0.02 X1000 (0.0-0.2); BASO% 0.1 % (0.0-0.8); EOS% 0.6 % (0.0-10.0); HEMATOCRIT 27.2 % (37.0-47.0); HEMOGLOBIN 9.1 g/dL (12.0-16.0); IMM GRAN# 0.05 X1000 (0.0-0.04); IMM GRAN% 0.3 % (0.0-0.5); LYMPH# 2.05 X1000 (1.2-3.4); LYMPH% 11.4 % (20.5-51.1); MCH 31.2 PG (27-31); MCHC 33.5 g/dL (33-37); MCV 93.2 FL (81-99); MONO# 1.04 X1000 (0.11-0.59); MONO% 5.8 % (1.7-9.3); MPV 11.4 FL (7.4-10.4); NEUT# 14.71 X1000 (1.4-6.5); NEUT% 81.8 % (42.2-75.2); PLT 93 X1000 (130-400); RBC 2.92 XMIL (4.2-5.4); RDW 16.9 % (11.5-14.5); WBC 17.97 X1000 (4.8-10.8)
[2019-02-09 08:11] LABS: AGAP 12; BUN 20 mg/dL (8-22); CHLORIDE 103 mmol/L (98-107); COSMO 288; CREATININE 1.1 mg/dL (0.5-0.9); ESTIMATED GFR > 60; GLUCOSE 177 mg/dL (70-104); POTASSIUM 2.7 mmol/L (3.5-5.1); SODIUM 141 mmol/L (136-145); TCO2 26 mmol/L (25-35)
[2019-02-09 08:25] LABS: CALCIUM 6.5 mg/dL (8.8-10.2)
[2019-02-09] MEDS ORDERED: CALCIUM GLUCONATE 4.65 MEQ in NS 50 ML IV ONE (08:34)
[2019-02-09] MEDS ORDERED: KLOR-CON PO ONE (08:34)
[2019-02-09] MEDS: FOLIC ACID PO SCH (08:57)
[2019-02-09] MEDS: ZOFRAN IV PRN ×2 (08:57→15:16)
[2019-02-09] MEDS: TAPAZOLE PO SCH (08:57)
[2019-02-09] MEDS: MYCOSTATIN SUSP PO SCH ×4 (08:57→23:36)
[2019-02-09] MEDS: LACTULOSE PO SCH (08:57)
[2019-02-09] MEDS: MILK OF MAGNESIA PO SCH (08:57)
[2019-02-09] MEDS: TOPROL XL PO SCH (08:57)
[2019-02-09] MEDS: LANOXIN PO SCH (08:57)
[2019-02-09] MEDS ORDERED: POTASSIUM CHLORIDE 40 MEQ/SWI 40 MEQ/100 ML IVPB IV ONE (09:09)
--- NOTE | 2019-02-09 09:53 | PROGRESS NOTE ---
DATE: 02/09/2019 SUBJECTIVE: This patient is sitting at the bedside. She is still complaining of some abdominal pain, mostly at the level of the periumbilical area. Her hemoglobin has been stable after 2 P- RBCs. I have requested an occult blood in the stool. She has been having some loose bowel movements which is likely related to her lactulose but I will rule out C. difficile colitis as well. Calcium level and potassium level low. I will replace it. OBJECTIVE: Vital Signs: Temperature 97.4 degrees, pulse 72, respiratory rate 18, blood pressure 104/67, oxygen saturation 100% on room air. HEENT: Head normocephalic. No trauma. PERRLA. Neck: Supple. No JVD. No masses. Central trachea. Chest: Clear to auscultation. Some crepitus at the bases. Abdomen: Soft. Generalized tenderness to palpation, mostly at the level of the periumbilical area. Positive bowel sounds. Extremities: There is 2+ lower extremity edema. No clubbing. No cyanosis. Neurological Examination: The patient is alert. She is oriented x3. No focal deficits. Laboratory: WBCs 17.9, hemoglobin 9.1, hematocrit 27.2, platelets 93,000. Sodium 141, potassium 2.7, chloride 93, bicarbonate 26, BUN 20, creatinine 1.1, glucose 177, calcium 6.5, magnesium 2. ASSESSMENT AND PLAN: 1. Pancreatic cancer with abdominal pain. We have increased the dose of the fentanyl patch from 12.5 to 25, and she is still getting [place] 10 every 4 hours as needed. We will continue to monitor. Hematology/oncology department on board. We have been discussing with the family about hospice and they are thinking about it. 2. Anemia. Hemoglobin dropped to 4.9 and now, today is 9.1, yesterday 8.8. There is a possibility of a gastrointestinal bleed, pending occult blood in the stool but for now, I will monitor. I will continue with proton pump inhibitors and Carafate. 3. Abdominal pain. Continue with the same management. This is likely secondary to cancer. 4. History of pulmonary embolism. Not on anticoagulation due to her severe anemia. 5. Nutritional status. Continue with the same management. She seems to be tolerating her liquid diet. I will advance it for clear liquid to full liquid diet, and I will advance this slowly. 6. Acute kidney injury, likely secondary to dehydration. I will continue with the same management. Kidney function is getting better. BUN normalized and creatinine is 1.1, down from 1.7. 7. Hypokalemia. I will replace the potassium. 8. Hypocalcemia. I will replace the calcium. 9. Generalized weakness. Aware. We will continue to monitor. 10. Resuscitation status. This patient is Do Not Resuscitate. It looks like this patient was having constipation and now she is having some bowel movements which are loose/liquid. I will decrease the dose of the lactulose from twice a day to once a day to see how she does. Also, I will ask for Clostridium difficile toxin and antigen just to rule out colitis. cc: Smith Alvarez MD
[2019-02-09] MEDS: NORCO-10 PO PRN (11:15)
[2019-02-09] MEDS: DURAGESIC 25 MICROGM/HR PATCH TD SCH (15:05)
[2019-02-09] MEDS: VANCOCIN PO SCH (20:11)
[2019-02-09] MEDS: COMPAZINE IV PRN (22:52)
[2019-02-10] MEDS ORDERED: PHENERGAN IV ONE (00:56)
[2019-02-10] MEDS ORDERED: SODIUM CHLORIDE 0.9% INJ ONE (00:56)
[2019-02-10] MEDS: VANCOCIN PO SCH ×4 (01:28→23:25)
[2019-02-10] MEDS: ZOSYN 3.375 GM in NS 50 ML IV SCH ×4 (01:28→17:24)
[2019-02-10] MEDS: COMPAZINE IV PRN (05:02)
[2019-02-10] MEDS: PEPCID IV SCH ×2 (05:18→17:22)
[2019-02-10] MEDS: PRILOSEC PO SCH ×2 (06:01→23:26)
[2019-02-10] MEDS: CARAFATE PO SCH ×4 (06:01→23:26)
[2019-02-10] MEDS: DILAUDID IV PRN ×2 (08:11→14:53)
[2019-02-10] MEDS: LANOXIN PO SCH (08:13)
[2019-02-10] MEDS: TOPROL XL PO SCH (08:13)
[2019-02-10] MEDS: TAPAZOLE PO SCH (08:15)
[2019-02-10] MEDS: MILK OF MAGNESIA PO SCH (08:15)
[2019-02-10] MEDS: MYCOSTATIN SUSP PO SCH ×5 (08:15→23:26)
[2019-02-10 08:54] LABS: BASO# 0.02 X1000 (0.0-0.2); BASO% 0.1 % (0.0-0.8); EOS# 0.04 X1000 (0.0-0.7); EOS% 0.2 % (0.0-10.0); HEMATOCRIT 28.1 % (37.0-47.0); HEMOGLOBIN 9.3 g/dL (12.0-16.0); IMM GRAN# 0.06 X1000 (0.0-0.04); IMM GRAN% 0.3 % (0.0-0.5); LYMPH% 9.6 % (20.5-51.1); MCH 31.1 PG (27-31); MCHC 33.1 g/dL (33-37); MONO# 1.33 X1000 (0.11-0.59); MONO% 7.1 % (1.7-9.3); MPV 11.7 FL (7.4-10.4); NEUT# 15.48 X1000 (1.4-6.5); NEUT% 82.7 % (42.2-75.2); PLT 82 X1000 (130-400); RBC 2.99 XMIL (4.2-5.4); RDW 17.3 % (11.5-14.5); WBC 18.73 X1000 (4.8-10.8)
[2019-02-10] MEDS ORDERED: LACTULOSE PO SCH (09:00)
[2019-02-10 09:01] LABS: AGAP 12; BUN 15 mg/dL (8-22); CHLORIDE 104 mmol/L (98-107); COSMO 286; ESTIMATED GFR > 60; GLUCOSE 140 mg/dL (70-104); SODIUM 142 mmol/L (136-145); TCO2 26 mmol/L (25-35)
[2019-02-10] MEDS ORDERED: CALCIUM GLUCONATE 4.65 MEQ in NS 50 ML IV ONE (11:25)
[2019-02-10] MEDS: KLOR-CON PO SCH ×2 (11:52→23:26)
[2019-02-10] MEDS: ZOFRAN IV PRN ×2 (11:53→21:59)
[2019-02-10] MEDS: FOLIC ACID PO SCH (12:06)
--- NOTE | 2019-02-10 13:26 | PROGRESS NOTE ---
DATE: 02/10/2019 SUBJECTIVE: This patient is sitting on the bed. She seems to be really tired. She is still complaining of some abdominal pain. Hemoglobin improved a little bit compared with yesterday. Sodium stabilized. Potassium level and calcium level are low. I will replace both, kidney function seems to be better. OBJECTIVE: Vital Signs: Temperature 97.2 degrees, pulse 111, respiratory rate 20, blood pressure 113/76, oxygen saturation 98 on room air. HEENT: Head normocephalic. No trauma. PERRLA. Neck: Supple. No JVD. No masses. Central trachea. Chest: Clear to auscultation. Some crepitus at the bases. Abdomen: Soft. Generalized tenderness to palpation mostly at the level of the periumbilical area. Positive bowel sounds. Extremities: 2 to 3+ lower extremity edema. No clubbing. No cyanosis. Neurologic: The patient is alert, she is following commands. She is moving all 4 extremities. LABORATORY: WBC 18.7, hemoglobin 9.3, hematocrit 28.1, platelets 82,000. Sodium 142, potassium 3, chloride 104, bicarbonate 26, BUN 15, creatinine 1, glucose 140, calcium 7. ASSESSMENT AND PLAN: 1. Pancreatic cancer with abdominal pain. We increased the dose of fentanyl patch from 12.5 to 25 a few days ago. Also she is getting [place] 10 every 4 hours as needed. We will continue to monitor. Hematology/Oncology Department on board. 2. Anemia. Hemoglobin has been stable after transfusing this patient, I will continue with PPIs and Carafate. We do have a positive occult blood in the stool. 3. Abdominal pain. Continue with same management, likely secondary to pancreatic cancer. 4. Possible Clostridium difficile colitis, I have started this patient on vancomycin p.o. She has been having loose bowel stools but I am not quite sure if this was related to the lactulose or it is actually an infection, her antigen is positive but the toxin is negative. I will treat it anyway. 5. History of pulmonary embolism, not on anticoagulation due to her severe anemia. 6. Nutritional status. Continue with same management. 7. Acute kidney injury resolved, likely secondary to dehydration. 8. Hypokalemia. I will replace the potassium. 9. Hypocalcemia. I will replace the calcium. 10. Generalized weakness aware. RESUSCITATION STATUS: This patient is DNR. A family member, her daughter requested hospice, this patient is already DNR level 1, right now I will stop doing laboratory in the morning, hospice will evaluate this patient today and hopefully we can discharge this patient either today or tomorrow, likely will be tomorrow, palliative care team on board and helping with the case. cc: Smith Alvarez MD
[2019-02-10] MEDS: D5W + KCL 20 MEQ 1,000 ML IV SCH ×2 (14:29→23:25)
[2019-02-10] MEDS: NORCO-10 PO PRN (17:24)
[2019-02-11] MEDS: DILAUDID IV PRN (00:44)
[2019-02-11] MEDS: ZOSYN 3.375 GM in NS 50 ML IV SCH ×3 (00:45→12:22)
[2019-02-11] MEDS: COMPAZINE IV PRN (00:51)
[2019-02-11] MEDS: VANCOCIN PO SCH ×2 (02:42→11:07)
[2019-02-11] MEDS: NORCO-10 PO PRN ×3 (04:48→16:31)
[2019-02-11] MEDS: PEPCID IV SCH (04:49)
[2019-02-11] MEDS: PRILOSEC PO SCH (06:49)
[2019-02-11] MEDS: CARAFATE PO SCH ×2 (06:49→12:22)
[2019-02-11] MEDS: FOLIC ACID PO SCH (11:06)
[2019-02-11] MEDS: LANOXIN PO SCH (11:06)
[2019-02-11] MEDS: TOPROL XL PO SCH (11:07)
[2019-02-11] MEDS: MYCOSTATIN SUSP PO SCH ×2 (11:07→12:23)
[2019-02-11] MEDS: TAPAZOLE PO SCH (11:07)
[2019-02-11] MEDS: MILK OF MAGNESIA PO SCH (11:08)
[2019-02-11] MEDS: D5W + KCL 20 MEQ 1,000 ML IV SCH (11:18)
[2019-02-11 12:13] VITALS: BP 130/53
[2019-02-11] MEDS: ZOFRAN ODT PO PRN (16:31)
--- NOTE | 2019-02-11 16:42 | DISCHARGE SUMMARY ---
ADMISSION DATE: 01/28/2019 DISCHARGE DATE: 02/11/2019 ADMITTING DIAGNOSES: 1. Mild pancreatitis and pancreatic mass. 2. Intractable pain. 3. Oropharyngeal candidiasis. 4. Normocytic anemia. 5. History of supraventricular tachycardia and atrial fibrillation. 6. Hyperthyroidism. 7. Mild hypokalemia. DISCHARGE DIAGNOSES: 1. Pancreatic cancer with abdominal pain. 2. Anemia. 3. Abdominal pain. 4. Possible C difficile colitis. Antigen was positive. Toxin was negative. Being treated with oral vancomycin. 5. History of pulmonary emboli, not on anticoagulation due to severe anemia. 6. Protein-calorie malnutrition. 7. Acute kidney injury, resolved. 8. Hypokalemia. 9. Hypocalcemia. 10.Generalized weakness. 11.Do Not Resuscitate level 1, going home with hospice. CONSULTATIONS: 1. Dr. Liborio Jacob for pancreatic cancer. 2. Dr. Dakota Last for erosive duodenal ulcer versus erosive pancreatic cancer. SURGERIES AND PROCEDURES: None. HOSPITAL COURSE: On the night of 01/27/2019, the patient presented to the emergency department with recent diagnosis of pancreatic mass and recent discharge from [facility] with pancreatic mass, biopsy that was performed there. At the time of admission, it was unknown if it was cancer or not. The pathology report was not back at that time, but she came in with complaints of worsening abdominal pain and a sore throat for three days. She also had a nonproductive cough and mild shortness of breath. She had some nausea but no vomiting or diarrhea at the time of admit. Complained of fatigue and weakness. Workup revealed a white blood cell count of 19,000. She was also anemic. Her potassium was mildly low. A CT of the abdomen and pelvis was performed showing findings of mild acute pancreatitis and an increase in the size of the pancreatic lesion, possible perforation and abscess on the lesion; mild biliary duct dilatation. So, she was admitted for further workup. Given the findings of the pancreatic lesion, Dr. Last was consulted. Pathology report was requested from [facility]. Given her anemia, her Eliquis was held on admission. She was started on Zosyn at the time of admit. IV Dilaudid was started for her intractable abdominal pain. She did have oral pharyngeal candidiasis which was likely the cause of her sore throat. The strep was negative. She was started on oral nystatin solution for that. For SVT and atrial fibrillation history she was continued on metoprolol and digoxin. For her hyperthyroidism she was continued on methimazole. Potassium was replaced. Hematology/Oncology was consulted. It was found that she had folic acid deficiency so she was started on folate. It also looks like once the CT scan was reviewed by Dr. Last, it appeared that the mass was around the superior mesenteric vein. The tumor was very large and there was potential for necrosis and abscess in the middle of it. Recommendations included neoadjuvant chemotherapy versus evaluation for resection at [facility] and possible vascular reconstruction was initially the recommendations of Dr. Last. She had a PICC line placed on 02/04/2019. Eventually, pathology report was available and it did involve a diagnosis of pancreatic cancer and apparently this is an inoperable pancreatic cancer. Neoadjuvant chemotherapy likely or to proceed with hospice and eventually the decision was to go home with hospice care. For her anemia she did end up receiving some blood transfusions, three in total, on this admission. For abdominal pain she was given Fentanyl patch, dosing was increased. Also, Perry. The final decision was for hospice care. DISCHARGE VITAL SIGNS: Temperature 98.0, heart rate 74, respiratory rate 19, blood pressure 130/66, O2 saturation 100% on room air. DISCHARGE LABORATORY DATA: No labs today but yesterday on 02/10/2019, White blood cell count 18,000, hemoglobin 9, hematocrit 28, platelet count 82,000. Sodium 142, potassium 3.0, BUN 15, creatinine 1.0, glucose 140, calcium 7.0. PERTINENT IMAGING: Abdominopelvic CT on 01/28/2019 showed mass in the head of the pancreas with possible abscess, possibility of focal pancreatitis and/or neoplasm could not be excluded. Chest x-ray was a negative exam. She did not have an EKG. She had a chronic atrial fibrillation on her telemetry strips. DISCHARGE MEDICATIONS: 1. Eliquis 5 mg p.o. twice a day. 2. Methimazole 10 mg p.o. daily. 3. Prilosec 40 mg p.o. daily. 4. Toprol XL 100 mg p.o. daily. 5. Digoxin 125 mcg p.o. daily. 6. Perry 10 one tablet p.o. every four hours p.r.n. 7. Zofran 4 mg p.o. p.r.n. 8. Likely will go home with Fentanyl patch and probably will not have Eliquis due to the severe anemia that she had during her stay, receiving blood products. DISCHARGE DIET: Full liquid diet and advance as tolerated. Ensure with meals. DISCHARGE ACTIVITY: As tolerated. DISCHARGE FOLLOWUP: 1. Dr. Dakota Last. 2. Dr. Mansfield. 3. Dr. Jacob. DISCHARGE INSTRUCTIONS: If your condition changes, contact a physician and/or return to the emergency department. Changes include, but are not limited to, shortness of breath, increased fatigue, excessive bleeding, unexplained weight loss or gain, unimaginable pain, signs/symptoms of infection. DISCHARGE DISPOSITION: Home with hospice. Dictated by SRAVNATHI Jackson for Gordon Brantley MD cc: SRAVANTHI Jackson Agree with the above. the following is my own face to face assessment. Patient with pancreatic cancer, admitted for pain control with likely mild pancreatitis. symptoms now largely resolved. abd nontender on exam. after conversation about current situation and prognosis, patient and family elected to go home with hospice. this was facilitated. patient stable for discharge home. MTDD
== END 2019-02-11 16:46 | disposition hospice, home (50) | DRG 435 ==
LOC: ED 17:40 → 3N 01-28 03:51 → SUATTDRO 01-28 03:51
PROVIDERS: ATTEND Internal Medicine
CPT/HCPCS: 36430; 36569; 71010; 71045; 74176; 80048; 80053; 80162; 81001; 82150; 82270; 82607; 82728; 82746; 82948; 83540; 83550; 83690; 83735; 84443; 85025; 85610; 85730; 86850; 86900; 86901; 86920; 87040; 87081; 87324; 87430; 87449; 96374; 99285; A9270; J0610; J0780; J1170; J1940; J2060; J2270; J2405; J2543; J2550; J3475; J3480; J7030; J7040; J7050; J7070; P9016; S0028; XXXXX